=== PATIENT | female | born 1950 | race Caucasian/White ===

== ENCOUNTER → 2016-08-22 | Outpatient (REF) | payer OTHER | LOC: M LAB REF 16:18 | PROVIDERS: ATTEND Nurse Practitioner Family | DX: R50.9 Fever, unspecified (principal) ==

== ENCOUNTER → 2016-12-23 | Outpatient (CLI) | payer OTHER ==
[2016-12-23 10:50] LABS: BASO # 0.1 K/mm3 (0.0-0.2); EOS # 0.4 K/mm3 (0.0-0.50); EOS % 6.4 % (0.0-3.0); LARGE UNSTAINED CELL # 0.1 K/mm3 (0.0-0.4); LYMPH # 2.4 K/mm3 (1.5-4.5); LYMPH % 33.4 % (24.0-44.0); MEAN CORPUSCULAR HGB CONC 33.6 g/dl (32.0-36.5); MEAN CORPUSCULAR VOLUME 89.3 fl (80.0-96.0); MONO # 0.4 K/mm3 (0.0-0.8); MONO % 6.1 % (0.0-5.0); NEUTROPHILS # 3.5 K/mm3 (1.8-7.7); NEUTROPHILS % 51.1 % (36.0-66.0); PLATELET COUNT, AUTOMATED 268 k/mm3 (150-450); RED CELL DISTRIBUTION WIDTH 12.8 % (11.5-14.5); WHITE BLOOD COUNT 6.8 K/mm3 (4.0-10.0)
[2016-12-23 11:17] LABS: ANION GAP 5 MEQ/L (8-16); BLOOD UREA NITROGEN 20 MG/DL (7-18); CALCIUM LEVEL 8.3 MG/DL (8.8-10.2); CARBON DIOXIDE LEVEL 29 MEQ/L (21-32); CHLORIDE LEVEL 109 MEQ/L (98-107); CHOLESTEROL LEVEL 208 MG/DL (<200); CREATININE FOR GFR 0.83 MG/DL (0.55-1.02); GLOMERULAR FILTRATION RATE > 60.0 (>45); GLUCOSE, FASTING 101 MG/DL (80-110); SODIUM LEVEL 143 MEQ/L (136-145); TRIGLYCERIDES LEVEL 178 MG/DL (<150)
== END ==
LOC: M LAB 10:30
PROVIDERS: ATTEND Internal Medicine
DX: E03.9 Hypothyroidism, unspecified (principal)

== ENCOUNTER → 2017-06-16 | Outpatient (CLI) | payer OTHER ==
[2017-06-16 12:23] LABS: BASO # 0.1 10^3/uL (0.0-0.2); BASO % 1.5 % (0.0-1.0); EOS # 0.4 10^3/uL (0.0-0.50); EOS % 6.7 % (0.0-3.0); IMMATURE GRANULOCYTE % 0.3 % (0-0); LYMPH # 1.9 10^3/uL (1.5-4.5); LYMPH % 30.8 % (24.0-44.0); MEAN CORPUSCULAR HEMOGLOBIN 29.3 pg (27.0-33.0); MEAN CORPUSCULAR HGB CONC 32.4 g/dl (32.0-36.5); MEAN CORPUSCULAR VOLUME 90.2 fl (80.0-96.0); MONO # 0.6 10^3/uL (0.0-0.8); MONO % 9.9 % (0.0-5.0); NEUTROPHILS # 3.1 10^3/uL (1.8-7.7); NEUTROPHILS % 50.8 % (36.0-66.0); PLATELET COUNT, AUTOMATED 270 10^3/uL (150-450); WHITE BLOOD COUNT 6.1 10^3/uL (4.0-10.0)
[2017-06-16 12:36] LABS: MICROSCOPIC INDICATED? MAN YES (NO)
[2017-06-16 12:40] LABS: BACTERIA, URINE SMALL AMOUNT; HYALINE CAST, URINE NONE SEEN /lpf (0-1); MICROSCOPIC EXAM PERFORMED; RBC, URINE 0-1 /hpf (0-3); SQUAMOUS EPITHELIAL CELL URINE SMALL AMOUNT /hpf (SMALL AMT)
[2017-06-16 13:37] LABS: ALT/SGPT 26 U/L (12-78); ANION GAP 5 MEQ/L (8-16); BLOOD UREA NITROGEN 17 MG/DL (7-18); CALCIUM LEVEL 8.6 MG/DL (8.8-10.2); CARBON DIOXIDE LEVEL 30 MEQ/L (21-32); CHLORIDE LEVEL 108 MEQ/L (98-107); CHOLESTEROL LEVEL 215 MG/DL (<200); CREATININE FOR GFR 0.78 MG/DL (0.55-1.02); GLOMERULAR FILTRATION RATE > 60.0 (>45); GLUCOSE, FASTING 94 MG/DL (80-110); POTASSIUM SERUM 4.2 MEQ/L (3.5-5.1); SODIUM LEVEL 143 MEQ/L (136-145); TRIGLYCERIDES LEVEL 206 MG/DL (<150)
== END ==
LOC: M LAB 11:49
PROVIDERS: ATTEND Internal Medicine
DX: R73.09 Other abnormal glucose (principal); E78.00 Pure hypercholesterolemia, unspecified; E03.9 Hypothyroidism, unspecified

== ENCOUNTER → 2017-07-12 | Outpatient (REF) | payer OTHER | LOC: M LAB REF 15:11 | PROVIDERS: ATTEND Physician Assistant | DX: M54.5 Low back pain (principal) ==

== ENCOUNTER → 2017-12-02 | Outpatient (CLI) | payer OTHER ==
[2017-12-02 11:35] LABS: TOTAL 25(OH) VITAMIN D 26.5 NG/ML (30.0-100.0)
[2017-12-02 11:46] LABS: ANION GAP 4 MEQ/L (8-16); BLOOD UREA NITROGEN 17 MG/DL (7-18); CALCIUM LEVEL 8.6 MG/DL (8.8-10.2); CARBON DIOXIDE LEVEL 30 MEQ/L (21-32); CHLORIDE LEVEL 109 MEQ/L (98-107); CHOLESTEROL LEVEL 225 MG/DL (<200); CHOLESTEROL RISK RATIO 4.245 (<5); CREATININE FOR GFR 0.86 MG/DL (0.55-1.30); GLOMERULAR FILTRATION RATE > 60.0 (>45); GLUCOSE, FASTING 104 MG/DL (70-100); HDL CHOLESTEROL 53 MG/DL (>40); LDL CHOLESTEROL 136.6 MG/DL (<100); NON-HDL-C 172 MG/DL; POTASSIUM SERUM 4.4 MEQ/L (3.5-5.1); SODIUM LEVEL 143 MEQ/L (136-145); TRIGLYCERIDES LEVEL 177 MG/DL (<150)
== END ==
LOC: M LAB 10:23
DX: E03.9 Hypothyroidism, unspecified (principal); M81.0 Age-related osteoporosis without current pathological fracture; E78.00 Pure hypercholesterolemia, unspecified
CPT/HCPCS: 84443

== ENCOUNTER → 2018-03-31 | Outpatient (CLI) | payer OTHER ==
[2018-03-31 19:07] LABS: ESTIMATED AVERAGE GLUCOSE 131 MG/DL (60-110); HEMOGLOBIN A1c 6.2 %
== END ==
LOC: M LAB 11:01
DX: E11.9 Type 2 diabetes mellitus without complications (principal)
CPT/HCPCS: 83036

== ENCOUNTER → 2018-07-01 | Outpatient (CLI) | payer OTHER ==
[2018-07-01 12:25] LABS: APPEARANCE, URINE HAZY (CLEAR); BACTERIA, URINE AUTO NEGATIVE (NEGATIVE); BILIRUBIN, URINE AUTO NEGATIVE (NEGATIVE); BLOOD, URINE BLOOD NEGATIVE (NEGATIVE); COLOR, URINE YELLOW (YELLOW); GLUCOSE, URINE (UA) AUTO NEGATIVE (NEGATIVE); KETONE, URINE AUTO NEGATIVE (NEGATIVE); LEUKOCYTE ESTERASE, URINE AUTO NEGATIVE (NEGATIVE); MUCUS, URINE SMALL (NEGATIVE); NITRITE, URINE AUTO NEGATIVE (NEGATIVE); PROTEIN, URINE AUTO NEGATIVE (NEGATIVE); RBC, URINE AUTO 4 /HPF (0-3); SQUAMOUS EPITHELIAL CELL UR AU 0 /HPF (0-6); UROBILINOGEN, URINE AUTO 0.2 mg/dL (0.0-2.0); WBC, URINE AUTO 0 /HPF (0-3)
[2018-07-01 12:27] LABS: BASO # 0.1 10^3/uL (0.0-0.2); BASO % 1.3 % (0.0-1.0); EOS # 0.3 10^3/uL (0.0-0.50); EOS % 3.9 % (0.0-3.0); HEMATOCRIT 34.3 % (36.0-47.0); HEMOGLOBIN 10.5 g/dl (12.0-15.5); IMMATURE GRANULOCYTE % 0.3 % (0-3.0); LYMPH # 1.9 10^3/uL (1.5-4.5); LYMPH % 27.5 % (24.0-44.0); MEAN CORPUSCULAR HEMOGLOBIN 25.8 pg (27.0-33.0); MEAN CORPUSCULAR HGB CONC 30.6 g/dl (32.0-36.5); MEAN CORPUSCULAR VOLUME 84.3 fl (80.0-96.0); MONO # 0.6 10^3/uL (0.0-0.8); MONO % 8.1 % (0.0-5.0); NEUTROPHILS # 4.1 10^3/uL (1.8-7.7); NEUTROPHILS % 58.9 % (36.0-66.0); PLATELET COUNT, AUTOMATED 316 10^3/uL (150-450); RED BLOOD COUNT 4.07 10^6/uL (4.00-5.40); RED CELL DISTRIBUTION WIDTH 13.5 % (11.5-14.5); WHITE BLOOD COUNT 6.9 10^3/uL (4.0-10.0)
[2018-07-01 12:53] LABS: ALT/SGPT 26 U/L (12-78); ANION GAP 6 MEQ/L (8-16); BLOOD UREA NITROGEN 19 MG/DL (7-18); CALCIUM LEVEL 8.8 MG/DL (8.8-10.2); CARBON DIOXIDE LEVEL 29 MEQ/L (21-32); CHLORIDE LEVEL 106 MEQ/L (98-107); CHOLESTEROL LEVEL 219 MG/DL (<200); CREATININE FOR GFR 0.86 MG/DL (0.55-1.30); GLOMERULAR FILTRATION RATE > 60.0 (>45); GLUCOSE, FASTING 94 MG/DL (70-100); HDL CHOLESTEROL 50 MG/DL (>40); LDL CHOLESTEROL 139 MG/DL (<100); NON-HDL-C 169 MG/DL; POTASSIUM SERUM 4.3 MEQ/L (3.5-5.1); SODIUM LEVEL 141 MEQ/L (136-145); TRIGLYCERIDES LEVEL 151 MG/DL (<150)
[2018-07-01 12:55] LABS: TOTAL 25(OH) VITAMIN D 33.8 NG/ML (30.0-100.0)
[2018-07-01 13:15] LABS: ESTIMATED AVERAGE GLUCOSE 137 MG/DL (60-110); HEMOGLOBIN A1c 6.4 %
[2018-07-02 09:27] LABS: FERRITIN 5 NG/ML (8-252); IRON (FE) 45 UG/DL (50-170); TOTAL IRON BINDING CAPACITY 450 UG/DL (250-450)
[2018-07-02 11:20] LABS: VITAMIN B12 LEVEL 544 PG/ML
[2018-07-02 11:21] LABS: FOLATE 19.8 NG/ML
== END ==
LOC: M LAB 10:58
DX: Z00.00 Encounter for general adult medical examination without abnormal findings (principal); D64.9 Anemia, unspecified; R03.0 Elevated blood-pressure reading, without diagnosis of hypertension; E78.00 Pure hypercholesterolemia, unspecified; R73.09 Other abnormal glucose; E03.9 Hypothyroidism, unspecified; E55.9 Vitamin D deficiency, unspecified
CPT/HCPCS: 84460

== ENCOUNTER 2018-08-20 08:53 | Day surgery (SDC) | payer OTHER ==
[~2018-08-20] VITALS: Ht 162.6 cm; Wt 93.0 kg
[~2018-08-20 08:53] MED LIST: CALCTAB44 PO; FERR325T3 PO; HYDR-3713 PO; LEVO100T5 PO; MULT1TAB10 PO; NS 1,000 ML IV ONE; OMEP40CA2 PO; TYLE500T78 PO
[2018-08-20] MEDS ORDERED: PROPOFOL 200 MG/20 ML VIAL As Ordered ONE (10:09)
[2018-08-20] MEDS ORDERED: LIDOCAINE 2% INJ 100 MG/5 ML SDV (FOR ANES.) As Ordered ONE (10:09)
--- NOTE | 2018-08-20 10:10 | ROOR ---
Patient Name: Stacey Cherry Procedure Date: 08/20/2018 9:55 AM Date of : 1950 Age: 67 Room: [facility] Gender: Female Note Status: Finalized Procedure: Upper GI endoscopy Indications: Iron deficiency anemia Providers: Danielito Felix Jr, MD Referring MD: Mary SNYDER MD Requesting Provider: Medicines: Propofol per Anesthesia Complications: No immediate complications. Procedure: Pre-Anesthesia Assessment: - Prior to the procedure, a History and Physical was performed, and patient medications and allergies were reviewed. The patient is competent. The risks and benefits of the procedure and the sedation options and risks were discussed with the patient. All questions were answered and informed consent was obtained. Patient identification and proposed procedure were verified by the physician and the nurse in the pre-procedure area and in the procedure room. Mental Status Examination: alert and oriented. Airway Examination: normal oropharyngeal airway and neck mobility. Respiratory Examination: clear to auscultation. CV Examination: normal. ASA Grade Assessment: II - A patient with mild systemic disease. After reviewing the risks and benefits, the patient was deemed in satisfactory condition to undergo the procedure. The anesthesia plan was to use moderate sedation / analgesia (conscious sedation). Immediately prior to administration of medications, the patient was re-assessed for adequacy to receive sedatives. The heart rate, respiratory rate, oxygen saturations, blood pressure, adequacy of pulmonary ventilation, and response to care were monitored throughout the procedure. The physical status of the patient was re-assessed after the procedure. The Endoscope was introduced through the mouth, and advanced to the second part of duodenum. The upper GI endoscopy was accomplished without difficulty. The patient tolerated the procedure well. Findings: The upper third of the esophagus, middle third of the esophagus and lower third of the esophagus were normal. Scattered severe inflammation characterized by congestion (edema), erythema, friability and granularity was found in the cardia, in the gastric fundus and in the gastric body. Diffuse moderate inflammation characterized by congestion (edema), erythema, friability and granularity was found in the gastric antrum and in the prepyloric region of the stomach. Biopsies were taken with a cold forceps for histology. The duodenal bulb, first portion of the duodenum and second portion of the duodenum were normal. Impression: - Normal upper third of esophagus, middle third of esophagus and lower third of esophagus. - Bile gastritis. - Bile gastritis. Biopsied. - Normal duodenal bulb, first portion of the duodenum and second portion of the duodenum. Recommendation: - Discharge patient to home (ambulatory). - Return to my office in 2 weeks. Danielito Felix MD Danielito Felix Jr, MD 08/20/2018 10:10:28 AM This report has been signed electronically. Number of Addenda: 0 Note Initiated On: 08/20/2018 9:55 AM Estimated Blood Loss: Estimated blood loss: none.
--- NOTE | 2018-08-20 10:30 | ROOR ---
Patient Name: Stacey Cherry Procedure Date: 08/20/2018 9:56 AM Date of : 1950 Age: 67 Room: [facility] Gender: Female Note Status: Finalized Procedure: Colonoscopy Indications: Iron deficiency anemia Providers: Danielito Felix Jr, MD Referring MD: Mary SNYDER MD Requesting Provider: Medicines: Propofol per Anesthesia Complications: No immediate complications. Procedure: Pre-Anesthesia Assessment: - Prior to the procedure, a History and Physical was performed, and patient medications and allergies were reviewed. The patient is competent. The risks and benefits of the procedure and the sedation options and risks were discussed with the patient. All questions were answered and informed consent was obtained. Patient identification and proposed procedure were verified by the physician and the nurse in the pre-procedure area and in the procedure room. Mental Status Examination: alert and oriented. Airway Examination: normal oropharyngeal airway and neck mobility. Respiratory Examination: clear to auscultation. CV Examination: normal. ASA Grade Assessment: II - A patient with mild systemic disease. After reviewing the risks and benefits, the patient was deemed in satisfactory condition to undergo the procedure. The anesthesia plan was to use moderate sedation / analgesia (conscious sedation). Immediately prior to administration of medications, the patient was re-assessed for adequacy to receive sedatives. The heart rate, respiratory rate, oxygen saturations, blood pressure, adequacy of pulmonary ventilation, and response to care were monitored throughout the procedure. The physical status of the patient was re-assessed after the procedure. The Colonoscope was introduced through the anus and advanced to the cecum, identified by appendiceal orifice and ileocecal valve. The colonoscopy was performed without difficulty. The patient tolerated the procedure well. The quality of the bowel preparation was adequate. Findings: The rectum, recto-sigmoid colon, descending colon, transverse colon, cecum, appendiceal orifice and ileocecal valve appeared normal. A single small angioectasia without bleeding was found in the ascending colon. A few small-mouthed diverticula were found in the sigmoid colon. Impression: - The rectum, recto-sigmoid colon, descending colon, transverse colon, cecum, appendiceal orifice and ileocecal valve are normal. - A single non-bleeding colonic angioectasia. - Diverticulosis in the sigmoid colon. - No specimens collected. Recommendation: - Discharge patient to home (ambulatory). - Repeat colonoscopy in 10 years for screening purposes. Danielito Felix MD Danielito Felix Jr, MD 08/20/2018 10:30:09 AM This report has been signed electronically. Number of Addenda: 0 Note Initiated On: 08/20/2018 9:56 AM Estimated Blood Loss: Estimated blood loss: none.
[2018-08-20 10:50] VITALS: BP 124/76
== END 2018-08-20 10:54 | disposition home or self-care (01) ==
LOC: M OPP 08:53
PROVIDERS: ATTEND Surgery
DX: D50.9 Iron deficiency anemia, unspecified (principal); K55.20 Angiodysplasia of colon without hemorrhage; K57.30 Diverticulosis of large intestine without perforation or abscess without bleeding; K29.50 Unspecified chronic gastritis without bleeding; G47.30 Sleep apnea, unspecified; E03.9 Hypothyroidism, unspecified; R12 Heartburn; Z79.899 Other long term (current) drug therapy; Z88.1 Allergy status to other antibiotic agents; Z88.2 Allergy status to sulfonamides

== ENCOUNTER → 2018-09-01 | Outpatient (CLI) | payer OTHER ==
[~2018-09-01] MED LIST changes: -NS 1,000 ML IV ONE
[2018-09-01 16:33] LABS: BASO # 0.1 10^3/uL (0.0-0.2); BASO % 0.9 % (0.0-1.0); EOS # 0.1 10^3/uL (0.0-0.50); EOS % 1.7 % (0.0-3.0); HEMATOCRIT 36.3 % (36.0-47.0); HEMOGLOBIN 11.6 g/dl (12.0-15.5); LYMPH # 2.6 10^3/uL (1.5-4.5); LYMPH % 33.7 % (24.0-44.0); MEAN CORPUSCULAR HEMOGLOBIN 28.4 pg (27.0-33.0); MEAN CORPUSCULAR VOLUME 88.8 fl (80.0-96.0); MONO # 0.7 10^3/uL (0.0-0.8); NEUTROPHILS # 4.1 10^3/uL (1.8-7.7); NEUTROPHILS % 54.4 % (36.0-66.0); PLATELET COUNT, AUTOMATED 311 10^3/uL (150-450); RED BLOOD COUNT 4.09 10^6/uL (4.00-5.40); WHITE BLOOD COUNT 7.6 10^3/uL (4.0-10.0)
[2018-09-01 17:21] LABS: ERYTHROCYTE SEDIMENTATION RATE 19 mm/hr (0-30)
== END ==
LOC: M LAB 15:59
PROVIDERS: ATTEND Internal Medicine
DX: D50.9 Iron deficiency anemia, unspecified (principal)

== ENCOUNTER → 2018-11-01 | Outpatient (CLI) | payer OTHER ==
[~2018-11-01] MED LIST changes: +CALC1TAB82 PO; -CALCTAB44 PO
[2018-11-01 10:40] LABS: BASO # 0.1 10^3/uL (0.0-0.2); EOS # 0.1 10^3/uL (0.0-0.50); EOS % 1.9 % (0.0-3.0); HEMATOCRIT 38.9 % (36.0-47.0); HEMOGLOBIN 12.6 g/dl (12.0-15.5); LYMPH # 2.6 10^3/uL (1.5-4.5); LYMPH % 38.1 % (24.0-44.0); MEAN CORPUSCULAR HEMOGLOBIN 29.3 pg (27.0-33.0); MEAN CORPUSCULAR HGB CONC 32.4 g/dl (32.0-36.5); MEAN CORPUSCULAR VOLUME 90.5 fl (80.0-96.0); MONO # 0.6 10^3/uL (0.0-0.8); MONO % 9.3 % (0.0-5.0); NEUTROPHILS # 3.4 10^3/uL (1.8-7.7); NEUTROPHILS % 49.4 % (36.0-66.0); PLATELET COUNT, AUTOMATED 284 10^3/uL (150-450); WHITE BLOOD COUNT 6.9 10^3/uL (4.0-10.0)
[2018-11-01 10:51] LABS: HEMOGLOBIN A1c 6.2 %
[2018-11-01 11:09] LABS: BLOOD UREA NITROGEN 18 MG/DL (7-18); CALCIUM LEVEL 8.3 MG/DL (8.8-10.2); CARBON DIOXIDE LEVEL 27 MEQ/L (21-32); CHLORIDE LEVEL 107 MEQ/L (98-107); CREATININE FOR GFR 0.94 MG/DL (0.55-1.30); GLOMERULAR FILTRATION RATE > 60.0 (>45); GLUCOSE, FASTING 97 MG/DL (70-100); POTASSIUM SERUM 4.1 MEQ/L (3.5-5.1); SODIUM LEVEL 141 MEQ/L (136-145)
== END ==
LOC: M LAB 10:08
PROVIDERS: ATTEND Internal Medicine
DX: D50.9 Iron deficiency anemia, unspecified (principal); E03.9 Hypothyroidism, unspecified

== ENCOUNTER → 2019-02-07 | Outpatient (CLI) | payer OTHER ==
[~2019-02-07] MED LIST changes: -OMEP40CA2 PO; +OMEP40CA97 PO
[2019-02-07 10:35] LABS: BASO # 0.1 10^3/uL (0.0-0.2); BASO % 1.4 % (0.0-1.0); EOS # 0.2 10^3/uL (0.0-0.50); HEMATOCRIT 38.5 % (36.0-47.0); HEMOGLOBIN 12.8 g/dl (12.0-15.5); LYMPH # 2.4 10^3/uL (1.5-4.5); LYMPH % 36.8 % (24.0-44.0); MEAN CORPUSCULAR HEMOGLOBIN 31.8 pg (27.0-33.0); MEAN CORPUSCULAR HGB CONC 33.2 g/dl (32.0-36.5); MEAN CORPUSCULAR VOLUME 95.5 fl (80.0-96.0); MONO # 0.6 10^3/uL (0.0-0.8); NEUTROPHILS # 3.2 10^3/uL (1.8-7.7); NEUTROPHILS % 49.5 % (36.0-66.0); PLATELET COUNT, AUTOMATED 263 10^3/uL (150-450); RED BLOOD COUNT 4.03 10^6/uL (4.00-5.40); WHITE BLOOD COUNT 6.4 10^3/uL (4.0-10.0)
[2019-02-07 10:59] LABS: BLOOD UREA NITROGEN 16 MG/DL (7-18); CALCIUM LEVEL 8.8 MG/DL (8.8-10.2); CARBON DIOXIDE LEVEL 29 MEQ/L (21-32); CHLORIDE LEVEL 111 MEQ/L (98-107); CHOLESTEROL LEVEL 216 MG/DL (<200); CHOLESTEROL RISK RATIO 3.857 (<5); CREATININE FOR GFR 0.91 MG/DL (0.55-1.30); GLOMERULAR FILTRATION RATE > 60.0 (>45); GLUCOSE, FASTING 100 MG/DL (70-100); HDL CHOLESTEROL 56 MG/DL (>40); LDL CHOLESTEROL 135 MG/DL (<100); NON-HDL-C 160 MG/DL; POTASSIUM SERUM 4.2 MEQ/L (3.5-5.1); SODIUM LEVEL 143 MEQ/L (136-145); TRIGLYCERIDES LEVEL 127 MG/DL (<150)
[2019-02-07 11:17] LABS: HEMOGLOBIN A1c 6.4 %
== END ==
LOC: M LAB 09:36
PROVIDERS: ATTEND Internal Medicine
DX: R03.0 Elevated blood-pressure reading, without diagnosis of hypertension (principal); D50.9 Iron deficiency anemia, unspecified; E03.9 Hypothyroidism, unspecified; R73.09 Other abnormal glucose; E78.00 Pure hypercholesterolemia, unspecified

== ENCOUNTER → 2019-08-02 | Outpatient (CLI) | payer OTHER ==
[2019-08-02 15:20] LABS: BASO # 0.1 10^3/uL (0.0-0.2); BASO % 1.1 % (0.0-1.0); EOS # 0.2 10^3/uL (0.0-0.5); EOS % 2.6 % (0.0-3.0); HEMATOCRIT 38.1 % (36.0-47.0); HEMOGLOBIN 12.7 g/dl (12.0-15.5); LYMPH # 2.5 10^3/uL (1.5-5.0); LYMPH % 33.2 % (24.0-44.0); MEAN CORPUSCULAR HEMOGLOBIN 31.6 pg (27.0-33.0); MEAN CORPUSCULAR HGB CONC 33.3 g/dl (32.0-36.5); MEAN CORPUSCULAR VOLUME 94.8 fl (80.0-96.0); MONO # 0.7 10^3/uL (0.0-0.8); MONO % 9.1 % (0.0-5.0); NEUTROPHILS # 4.1 10^3/uL (1.5-8.5); NEUTROPHILS % 53.7 % (36.0-66.0); PLATELET COUNT, AUTOMATED 274 10^3/uL (150-450); RED BLOOD COUNT 4.02 10^6/uL (4.00-5.40); WHITE BLOOD COUNT 7.6 10^3/uL (4.0-10.0)
[2019-08-02 15:39] LABS: HEMOGLOBIN A1c 6.2 %
[2019-08-02 15:57] LABS: ALBUMIN 3.5 GM/DL (3.2-5.2); ALT/SGPT 46 U/L (12-78); BILIRUBIN,TOTAL 0.4 MG/DL (0.2-1.0); BLOOD UREA NITROGEN 19 MG/DL (7-18); CALCIUM LEVEL 8.9 MG/DL (8.8-10.2); CARBON DIOXIDE LEVEL 27 MEQ/L (21-32); CHLORIDE LEVEL 107 MEQ/L (98-107); CHOLESTEROL LEVEL 238 MG/DL (<200); CHOLESTEROL RISK RATIO 5.534 (<5); CREATININE FOR GFR 0.83 MG/DL (0.55-1.30); GLOMERULAR FILTRATION RATE > 60.0 (>45); GLUCOSE, FASTING 99 MG/DL (70-100); HDL CHOLESTEROL 43 MG/DL (>40); NON-HDL-C 195 MG/DL; POTASSIUM SERUM 4.2 MEQ/L (3.5-5.1); SODIUM LEVEL 142 MEQ/L (136-145); TOTAL PROTEIN 7.2 GM/DL (6.4-8.2); TRIGLYCERIDES LEVEL 428 MG/DL (<150)
== END ==
LOC: M LAB 14:40
PROVIDERS: ATTEND Internal Medicine
DX: D50.9 Iron deficiency anemia, unspecified (principal)

== ENCOUNTER → 2019-08-11 | Outpatient (REF) | payer OTHER | LOC: M LAB REF 15:27 | PROVIDERS: ATTEND Radiology Diagnostic Radiology | DX: N63.0 Unspecified lump in unspecified breast (principal) ==

== ENCOUNTER → 2019-08-25 | Outpatient (CLI) | payer OTHER | LOC: M PLALAB 10:33 | PROVIDERS: ATTEND Surgery | DX: Z13.79 Encounter for other screening for genetic and chromosomal anomalies (principal) ==

== ENCOUNTER → 2019-09-03 | Outpatient (CLI) | payer OTHER ==
[~2019-09-03] MED LIST changes: +ACET-683 PO; +AZEL0.055 NARES; +HYDR-3363 PO; +UREA39CR EX; +[UNRECOGNIZED DRUG - OTHER] EXT
--- NOTE | 2019-09-03 12:35 | REP ---
LEFT AXILLARY ULTRASOUND: Real-time sonographic evaluation of the left axillary region performed for palpable suspected lymphadenopathy. In the left axilla, there are two lymph nodes identified with prominent fatty herman. Morphologically, these have a typical appearance of lymph nodes. These measure 3.1 x 1.2 x 1.9 cm and 1.9 x 0.8 x 1.4 cm. IMPRESSION: Two morphologically normal appearing lymph nodes present are mildly enlarged as discussed above. Neoplastic involvement cannot be excluded.
== END ==
LOC: M WHC 10:42
PROVIDERS: ATTEND Surgery
DX: C50.912 Malignant neoplasm of unspecified site of left female breast (principal)

== ENCOUNTER → 2019-09-03 | Outpatient (REF) | payer OTHER ==
[~2019-09-03] MED LIST changes: -ACET-683 PO; -AZEL0.055 NARES; -HYDR-3363 PO; -UREA39CR EX; -[UNRECOGNIZED DRUG - OTHER] EXT
[2019-09-03 13:45] LABS: HEMATOCRIT 41.3 % (36.0-47.0); HEMOGLOBIN 12.9 g/dl (12.0-15.5); MEAN CORPUSCULAR HEMOGLOBIN 30.1 pg (27.0-33.0); MEAN CORPUSCULAR HGB CONC 31.2 g/dl (32.0-36.5); MEAN CORPUSCULAR VOLUME 96.5 fl (80.0-96.0); PLATELET COUNT, AUTOMATED 290 10^3/uL (150-450); RED BLOOD COUNT 4.28 10^6/uL (4.00-5.40); WHITE BLOOD COUNT 7.4 10^3/uL (4.0-10.0)
[2019-09-03 14:05] LABS: ALBUMIN 3.9 GM/DL (3.2-5.2); ALT/SGPT 56 U/L (12-78); BILIRUBIN,TOTAL 0.6 MG/DL (0.2-1.0); BLOOD UREA NITROGEN 17 MG/DL (7-18); CALCIUM LEVEL 9.1 MG/DL (8.8-10.2); CARBON DIOXIDE LEVEL 30 MEQ/L (21-32); CHLORIDE LEVEL 106 MEQ/L (98-107); CREATININE FOR GFR 0.87 MG/DL (0.55-1.30); GLOMERULAR FILTRATION RATE > 60.0 (>45); GLUCOSE, FASTING 77 MG/DL (70-100); POTASSIUM SERUM 4.2 MEQ/L (3.5-5.1); SODIUM LEVEL 141 MEQ/L (136-145); TOTAL PROTEIN 7.7 GM/DL (6.4-8.2)
== END ==
LOC: M PLALAB 11:13
PROVIDERS: ATTEND Surgery
DX: C50.912 Malignant neoplasm of unspecified site of left female breast (principal); Z17.0 Estrogen receptor positive status [ER+]; R59.0 Localized enlarged lymph nodes

== ENCOUNTER → 2019-09-17 | Outpatient (CLI) | payer OTHER ==
[~2019-09-17] MED LIST changes: +ACET-683 PO; +AZEL0.055 NARES; +HYDR-3363 PO; +UREA39CR EX; +[UNRECOGNIZED DRUG - OTHER] EXT
--- NOTE | 2019-09-17 15:19 | REP ---
SECOND LOOK TARGETED LEFT BREAST SONOGRAPHY: HISTORY: Additional suspicious nodules seen on MRI study of the breast done at [facility]. Status post ultrasound-guided needle biopsy left breast August 11, 2019. SONOGRAPHIC FINDINGS: Sonography is performed in my presence. The biopsy-proven malignant nodule is seen with a marker clip in its periphery. This measures 15 x 7 x 8 mm and is located at the upper border of the areola at approximately 12-o'clock position. There are multiple dilated ducts deep to the nipple with some hypoechoic echoes within these ducts. At 6 to 7 -o'clock position, at the inferior edge of the areolar border, there are two 3 mm hypoechoic lesions which appears cystic. These are 2 cm apart. At 5-o'clock position, 4 cm from the nipple there is a 10 x 5 x 3 mm elongate hypoechoic nodule with an irregular shape. This may conceivably correspond to the more posterior lesion seen near the biopsy proven malignancy on breast MRI study. No lesion is seen closer to the biopsy-proven clip lesion. IMPRESSION: Focused left breast sonographic findings include a hypoechoic elongate lesion at 5-o'clock position with mixed echogenicity. The biopsy proven malignancy is seen at 12-o'clock position. There are two small apparent cysts and their dilated ducts in the retroareolar region. Electronically Signed by Jeffery Harris MD 09/17/2019 05:08 P
== END ==
LOC: M RAD 12:45
PROVIDERS: ATTEND Surgery
DX: R92.8 Other abnormal and inconclusive findings on diagnostic imaging of breast (principal)

== ENCOUNTER → 2019-09-29 | Outpatient (CLI) | payer OTHER ==
[~2019-09-29] MED LIST changes: +VICO10TA11 PO
[2019-09-29 16:14] VITALS: BP 16/82
--- NOTE | 2019-09-29 18:11 | REP ---
Digital diagnostic unilateral left breast mammography with CAD: Two views. History: Marker clip placement views. The patient is status post ultrasound-guided needle biopsy procedure. Recent diagnosis upper outer quadrant left breast malignancy. Findings: There is a marker clip in the upper outer quadrant adjacent to some punctate calcifications, unchanged from the 2014 prior mammogram. A ring-like biopsy marker clip is noted centrally in the left breast at approximately 12 o'clock position anteriorly. There is a third small needle biopsy marker clip inferiorly and slightly laterally in the left breast at approximately the 5 o'clock position marking an ultrasound guided needle biopsy site. These latter two clips are new compared to the 2014 prior study. Impression: Total of three marker clips visible in the left breast, 12 o'clock and 5 o'clock recently placed.
--- NOTE | 2019-09-29 18:13 | REP ---
Focused left breast sonography: History: Infiltrating ductal carcinoma at 12 o'clock, recently diagnosed. Lesion identified at 5 o'clock by a recent ultrasound, for ultrasound-guided biopsy. Findings: Preliminary scanning demonstrates a 9 x 3 mm oval-shaped hypoechoic lesion corresponding with the recent sonographic findings. Sonographic guidance is provided to Dr. Tong who performed ultrasound-guided needle biopsy procedure and clip marker placement.
--- NOTE | 2019-09-29 21:16 | ROOPDOC ---
[facility] Report Of Operation Report of Operation DATE OF PROCEDURE: 09/29/19 PREPROCEDURE DIAGNOSES: left breast cancer and left breast mass POSTPROCEDURE DIAGNOSES: left breast cancer and left breast mass PROCEDURE: ultrasound guided biopsy of left breast mass SURGEON: Mark Hurt BABY NURSE: ANESTHESIA: local ESTIMATED BLOOD LOSS: Approximately 1 mL. COMPLICATIONS: none REMARKS: clip is in expected location on mammogram DESCRIPTION OF PROCEDURE: Lidocaine 1% LOT [id number] Expiration 08/2020 Sodium Bicarbonate 8.4% LOT [id number] Expiration 09/2020 Hydromark clip LOT [id number] Expiration 05/2022 SHAPE 4 Bx device: BARD [id number] x10 cm LOT HUEN 1024 Expiration 06/2022 Informed consent was obtained. The most common risk and possible complications including bleeding, hematoma, bruising, infection, injury to surrounding structures were explained to the patient and she expressed understanding. Patient was taken to the procedure room and placed on the bed in the supine position with the left upper extremity placed along the body and patient was rotated to the right. Appropriate time out was done stating patients name, date of , and the procedure to be performed. The left breast was prepped and draped in the usual fashion. The ultrasound was used to confirm the location of the lesion in the left breast at 5:00 4 centimeters from the nipple. Plain Lidocaine 1% and 8.4% sodium bicarbonate 10:1 mix was used to numb the skin, the biopsy site and tissues along the anticipated biopsy tract. Small skin incision was made with blade number 11. BARD Marquee 14G cannula with introducer ([id number]) was inserted through the incision and advanced under the ultrasound guidance to position immediately adjacent to the lesion. Next, the introducer was removed and BARD Marquee 14G biopsy device was places in the cannula. Pre-biopsy imaging, and post-biopsy imaging were captured. Five good core biopsies were taken at various levels of the lesion. Specimen was placed in formaldehyde, labeled with appropriate biopsy site and patients name, and sent to pathology for evaluation. Next, the biopsy device was withdrawn and a clip introducer was inserted into the biopsy site via the cannula. The Hydromark clip was deployed under direct vision. Post-clip placement image was captured. Manual pressure over the biopsy cavity and tract was held after the clip introducer was withdrawn. No bleeding was noted upon removal of the pressure. Post-biopsy mammogram of the left breast was obtained and showed clip in expected position. Postprocedural dressing was placed. Patient tolerated procedure well. Discharge instructions were discussed with the patient and she expressed understanding. MARK HURT DO Sep 29, 2019 21:16
== END ==
LOC: M WHCPRO 15:03
PROVIDERS: ATTEND Surgery
DX: C50.912 Malignant neoplasm of unspecified site of left female breast (principal)

== ENCOUNTER → 2019-10-21 | Outpatient (CLI) | payer OTHER ==
[~2019-10-21] MED LIST changes: +LIDOCAINE 1% MDV 20ML VIAL As Ordered ONE; +PROHANCE 279.3MG/ML 15ML VIAL (A9576) As Ordered ONE; +PROHANCE 279.3MG/ML 5ML VIAL (A9576) As Ordered ONE
[2019-10-21 08:03] LABS: BLOOD UREA NITROGEN 15 MG/DL (7-18); CALCIUM LEVEL 9.1 MG/DL (8.8-10.2); CARBON DIOXIDE LEVEL 27 MEQ/L (21-32); CHLORIDE LEVEL 108 MEQ/L (98-107); CREATININE FOR GFR 0.82 MG/DL (0.55-1.30); GLOMERULAR FILTRATION RATE > 60.0 (>45); GLUCOSE, FASTING 105 MG/DL (70-100); POTASSIUM SERUM 3.9 MEQ/L (3.5-5.1); SODIUM LEVEL 142 MEQ/L (136-145)
[2019-10-21 10:55] VITALS: BP 119/78
--- NOTE | 2019-10-21 11:22 | REP ---
DIGITAL DIAGNOSTIC UNILATERAL LEFT BREAST MAMMOGRAPHY WITH CAD: TWO VIEWS: HISTORY: Status post MR guided needle biopsy. Comparison is made with a recent mammography and breast ultrasound as well as comparison MRI study from September 08, 2019. Comparison mammography includes the initial post ultrasound-guided needle biopsy study of the left breast from August 11, 2019 when infiltrating ductal carcinoma was diagnosed. On September 29, 2019 postbiopsy images were obtained after an ultrasound guided needle biopsy produced the histologic diagnosis of atypical ductal hyperplasia. There was a remote prior benign needle biopsy in the upper outer quadrant of the left breast and a previously placed marker clip . MAMMOGRAPHIC FINDINGS: Today's CC and true ML views demonstrate a total of four separate needle biopsy marker clips. Today's MR guided needle biopsy marker clip is seen in approximately the 6 o'clock position middle third of the breast. There is no evidence of hematoma. Films are labeled for reference purposes. IMPRESSION: Marker clip is seen in the good position retroareolar approximately 6 o'clock. The three previously placed marker clips are also seen. There is no evidence of hematoma. Electronically Signed by Jeffery Harris MD 10/21/2019 12:20 P
--- NOTE | 2019-10-21 12:47 | REP ---
MRI GUIDED LEFT BREAST BIOPSY The procedure was performed under the personal supervision of Dr. Harris. The patient has a history of A 5 mm focus of enhancement in the 6 o'clock position of the left breast seen on a previous MRI from [facility] performed on 09/08/2019. The risks and benefits of the procedure were explained to the patient and informed consent was obtained. The left breast nodule was localized using MRI guidance. The skin was prepped and draped in a sterile fashion. 1% lidocaine was used as a local anesthetic. An 8-gauge suction assisted Mammotome needle was inserted and seven core biopsy samples were obtained. A marker clip was placed at the biopsy site. The patient tolerated the procedure well and there were no immediate complications. After the appropriate amount of monitored convalescence the patient was discharged from the department. Electronically Signed by SAUL Hood 10/21/2019 11:58 A Electronically Signed by Jeffery Harris MD 10/21/2019 12:38 P
== END ==
LOC: M IRPRO 07:20
PROVIDERS: ATTEND Surgery
DX: N60.92 Unspecified benign mammary dysplasia of left breast (principal); C50.912 Malignant neoplasm of unspecified site of left female breast; R92.8 Other abnormal and inconclusive findings on diagnostic imaging of breast
CPT/HCPCS: 36415; 77021; 80048; 88305; 88341; 88342; A9576

== ENCOUNTER → 2019-11-01 | Outpatient (CLI) | payer OTHER ==
[~2019-11-01] MED LIST changes: -LIDOCAINE 1% MDV 20ML VIAL As Ordered ONE; -PROHANCE 279.3MG/ML 15ML VIAL (A9576) As Ordered ONE; -PROHANCE 279.3MG/ML 5ML VIAL (A9576) As Ordered ONE
--- NOTE | 2019-11-01 16:37 | REPPI ---
CHEST, TWO VIEWS: There is no evidence of acute infiltrate. No pleural effusion is seen. The heart is normal in size. The mediastinal silhouette is unremarkable. The visualized osseous structures are intact. IMPRESSION: No acute pulmonary disease. Electronically Signed by Faisal Geronimo MD 11/01/2019 04:38 P
== END ==
LOC: M PLAIMG 15:01
PROVIDERS: ATTEND Surgery
DX: Z01.818 Encounter for other preprocedural examination (principal)

== ENCOUNTER 2019-11-17 08:50 | Observation (INO) | payer OTHER ==
--- NOTE | 2019-11-04 08:48 | CR ---
DATE OF CONSULTATION: 10/25/2019 PREOPERATIVE CONSULTATION: This is for Dr. Tong for a left breast lumpectomy scheduled 11/02/2019. Dear Dr. Tong: Thank you for asking me to see Ms. Stacey Cherry in consultation prior to her left breast lumpectomy. As you know, Ms. Cherry is a 68-year-old female with recent diagnosis of infiltrating ductal carcinoma of the left breast, triple positive, grade 2, who presents prior to left breast lumpectomy. Ms. Cherry reports left breast is swollen. She had another recent biopsy last week, results unknown. Sees Dr. Tong 10/27/2019, to discuss results. Patient reports she is presently off work from [place]. Denies any fevers or chills, chest pain, or shortness of breath. Continues to be quite active and, in fact, reports she did enough yard work that she has caused herself some neck pain. She is using sparingly Tylenol, Vicodin, heat, range of motion. She is using some Benadryl to help herself sleep at night. Patient admits to some anxiety. Eager to move forward with the lumpectomy. Patient had dermatitis in July. Reports resolution of her symptoms. Patient has history of iron deficiency anemia (JULIET). She has been weaned off iron. She does continue on famotidine with good control of dyspepsia. Patient has hypothyroidism and is compliant with her levothyroxine. Patient battles obesity as well as hyperlipidemia, hyperglycemia, borderline blood pressures. Hoping to get back on track with diet and exercise. REVIEW OF SYSTEMS: Otherwise, negative. PAST MEDICAL HISTORY: 1. Allergic rhinitis, history of immunotherapy. 2. Status post tonsillectomy. 3. Right foot surgery, bone spur in 1973. 4. Right wrist arthroscopy in 2004. 5. Mononucleosis in 1975. 6. Hepatitis in 1974. 7. Pneumonia in 1975. 8. Impetigo 1985. 9. Bunionectomy December 2003. 10. Transaminitis in 2005 with negative hepatitis panel. 11. Hypothyroidism. 12. Right carpal tunnel repair 2007. 13. Left plantar fasciitis, tendonitis. 14. Osteoporosis, treated with bisphosphonate January of 2008 to December of 2012. 15. Menopausal 2007. 16. 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 17. Left bunionectomy December 2012. 18. Family history of breast carcinoma (CA). 19. Gastritis status post esophagogastroduodenoscopy (EGD) 08/20/2018 with bile gastritis. No Helicobacter (H) pylori. 20. Hard of hearing, hearing aids 2016. 21. Breast CA 2019, infiltrating ductal, triple positive. 22. JULIET 2018 with EGD/colonoscopy showing bile gastritis, diverticulosis, single non-bleeding colonic angioectasia. MEDICATIONS: - acyclovir as needed cold sores - Astepro as needed for allergies - calcium citrate daily - famotidine 20 mg nightly - hydrocodone/acetaminophen 5/325 as needed - levothyroxine 100 mcg daily - omeprazole 40 mg daily - saline nasal spray as needed - Tylenol as needed - vitamin D3, 1000 international units daily DRUG ALLERGIES: SULFA. SOCIAL HISTORY: Single. Never smoked. No alcohol. Works on [employer] FAMILY HISTORY: Father hyperthyroidism, kidney disease. Mother Alzheimer disease, pacemaker. Sister breast cancer, cirrhosis, of lung cancer. Grandparents heart disease. PHYSICAL EXAMINATION: Overweight female in no acute distress. VITAL SIGNS: Weight 205, blood pressure 114/66, heart rate 97, height 65, oxygen saturation 97%. HEENT EXAMINATION: Head is normocephalic. Neck is supple. Pupils equal, reactive to light. Extraocular movements are intact. No thyromegaly, jugular venous distention (JVD), carotid bruits, cervical lymphadenopathy. RESPIRATORY: Clear to auscultation. Resonant to percussion. BREAST EXAMINATION: Mild diffuse fibroglandular breast disease, except left upper outer quadrant bruising, some erythema at the superior edge of the Steri-Strips, minimal tenderness, induration. CARDIOVASCULAR: Regular rate and rhythm. No murmur, rub, gallop. ABDOMEN: Obese, soft, nontender. No hepatosplenomegaly. EXTREMITIES: No cyanosis, clubbing, or edema. She does have some arthritic changes in her fingers. NEUROLOGIC: Alert and oriented. Cranial nerves II-XII intact. LABORATORY DATA: From 08/02/2019, patient had a normal TSH, CBC, and A1c of 6.2, normal med profile, liver panel. Lipids, the total cholesterol was 238 with triglycerides of 428, normal HDL at 43. Blood work 10/21/2019 [facility] ([facility] Normal med profile. EKG 10/25/2019: Normal sinus rhythm, rate of 97, axis of 47. Normal HI, QRS, QTc interval. Normal R wave progression. No atrial or ventricular hypertrophy. No pathologic Q waves. No significant change compared to an EKG from 12/25/2017. IMPRESSION: Ms. Stacey Cherry, 68-year-old female with cardiovascular risk factors positive for prehypertension, prediabetes, hyperlipidemia, age, who has no signs or symptoms indicative of cardiovascular ischemia, is felt to be optimized and at low risk for cardiovascular complications from the proposed surgical intervention, which can be further minimized by the followin. Gastritis. Take famotidine and omeprazole as usual evening prior to surgery. 2. Osteoarthritis. Use Tylenol perioperatively as needed. Resume Vicodin as needed with the approval of surgeon. 3. Breast carcinoma. Per Dr. Tong. 4. Allergies. Continue Benadryl nightly as needed. Use Astepro as well and saline spray. 5. Hyperlipidemia. Get back on track, diet, exercise after surgery. 6. Hyperglycemia. Encourage dietary advice after surgery. 7. Hypothyroid. Take levothyroxine with sip of water morning of surgery. Thank you very much for this consultation. Please call with questions or concerns.
[2019-11-17] VITALS (7 sets, daily range): BP systolic 126–143; BP diastolic 72–85; O2SAT 99
[~2019-11-17] VITALS: Ht 162.6 cm; Wt 92.5 kg
[~2019-11-17 08:50] MED LIST changes: +FAMO20TA PO; +LIDOCAINE 1% MDV 20ML VIAL SQ PRN; +LR 1,000 ML IV ONE; +ceFAZolin SOD 2 GM in IV 1 EA IV ONE
[2019-11-17] MEDS ORDERED: LIDO2.5C15 (09:35)
[2019-11-17] MEDS ORDERED: MIDAZOLAM INJ 2MG/2ML VIAL (J2250 PER 1MG) As Ordered ONE (10:38)
[2019-11-17] MEDS ORDERED: dexameTHASONE 4 MG/ML 1ML VIAL (J1100 PER 1MG) As Ordered ONE ×2 (10:39→12:18)
[2019-11-17] MEDS ORDERED: SUGAMMADEX SODIUM 500 MG/5 ML VIAL (BRIDION) As Ordered ONE (10:39)
[2019-11-17] MEDS ORDERED: LIDOCAINE 2% 100MG/5ML SDV (FOR ANES.) As Ordered ONE (10:39)
[2019-11-17] MEDS ORDERED: propofoL 200 MG/20 ML VIAL As Ordered ONE (10:39)
[2019-11-17] MEDS ORDERED: ROCURONIUM BROMIDE 50 MG/5 ML VIAL As Ordered ONE (10:39)
[2019-11-17] MEDS ORDERED: ONDANSETRON 4MG/2ML VIAL As Ordered ONE (10:39)
[2019-11-17] MEDS ORDERED: fentaNYL 250 MCG/5 ML INJECTION (J3010) As Ordered ONE (10:39)
[2019-11-17] MEDS ORDERED: HEPARIN SOD (PORCINE) 5000UNITS/ML VIAL (J1644 PER 1000UNITS) SQ ONE (11:15)
[2019-11-17] MEDS ORDERED: SCOPOLAMINE 1MG TRANSDERMAL PATCH As Ordered ONE (12:17)
[2019-11-17] MEDS ORDERED: BUPIVACAINE LIPOSOME/PF 1.3% 20ML VIAL (13.3MG/ML)(EXPAREL)(C9290 PER1MG) As Ordered ONE (12:20)
[2019-11-17] MEDS ORDERED: GENTAMICIN SULF 80MG/2ML VIAL As Ordered ONE (12:20)
[2019-11-17] MEDS ORDERED: SCOPOLAMINE 1MG TRANSDERMAL PATCH TOP ONE (12:30)
[2019-11-17] MEDS ORDERED: METOCLOPRAMIDE INJ 10MG/2ML VIAL (J2765 PER 1) As Ordered ONE (12:50)
[2019-11-17] MEDS ORDERED: ePHEDrine SULFATE 25 MG/5 ML(5MG/ML) SYRINGE As Ordered ONE (12:55)
[2019-11-17] MEDS ORDERED: PHENYLephrine HCL 500 MCG/5 ML (100MCG/ML) SYRINGE (J2370) As Ordered ONE ×2 (12:55→14:54)
[2019-11-17] MEDS ORDERED: ACETAMINOPHEN 1000MG 100ML IV BTL (OFIRMEV) (J0131 PER 10MG) As Ordered ONE (13:09)
[2019-11-17] MEDS ORDERED: propofoL 500 MG/50 ML VIAL As Ordered ONE (13:39)
--- NOTE | 2019-11-17 16:17 | POST-OPPD ---
Postoperative Procedure Note Date Of Procedure: Nov 17, 2019 PREOPERATIVE DIAGNOSIS: Left breast cancer, acquired absence of left breast and nipple POSTOPERATIVE DIAGNOSIS: same FINDINGS: S/p left mastectomy. [employer] 550cc, filled to 300cc NS PROCEDURE: Immediate post mastectomy Left breast reconstruction using tissue armor reconnaissance vehicle crewman. SURGEON: Dr Gannon SKEIN SPOOLER: Dr Krueger ANESTHESIA: General SPECIMENS: none [id number] ESTIMATED BLOOD LOSS: 50cc total for the whole procedure REPLACED: none DRAINS: 2 x 19 Fr Kavon drains COMPLICATIONS: none POSTOPERATIVE CONDITION: stable ESTHER GANNON DO Nov 17, 2019 16:17
--- NOTE | 2019-11-17 16:27 | REP ---
LEFT BREAST LYMPHOSCINTIGRAPHY The procedure was performed under the direct supervision of Dr. Geronimo. The images were reviewed with Dr. Geronimo. Using topical anesthetic and sterile technique a 0.998 millicuries of technetium 99 filtered sulfur colloid was injected subdermally in eight fractionated periareolar injections. Images obtained 1 hour after injection show a dominant focus in the left axilla. Impression: Left breast lymphoscintigraphy. There is a dominant focus of uptake in the left axilla. Electronically Signed by SAUL Hood 11/17/2019 01:41 P Electronically Signed by Faisal Geronimo MD 11/17/2019 04:19 P
[2019-11-17] MEDS ORDERED: LR 1,000 ML IV SCH ×2 (16:30→16:53)
[2019-11-17] MEDS ORDERED: fentaNYL 100 MCG/2 ML INJECTION (J3010) IV PRN (16:30)
[2019-11-17] MEDS ORDERED: oxyCODONE 5MG TAB PO PRN (16:30)
[2019-11-17] MEDS ORDERED: ONDANSETRON 4MG/2ML VIAL IV PRN ×2 (16:30→17:00)
[2019-11-17] MEDS ORDERED: ACETAMINOPHEN TAB 650MG DOSE (2X325MG) PO PRN (17:00)
[2019-11-17] MEDS ORDERED: PERCOCET 5MG/325MG TAB PO PRN (17:00)
[2019-11-17] MEDS ORDERED: FAMOTIDINE 20 MG TAB PO ONE (17:00)
[2019-11-17 17:52] LABS: HIV SCREEN CENTAUR SOURCE NEGATIVE (NEGATIVE)
[2019-11-17] MEDS: KETOROLAC TROMETHAMINE 10 MG TAB PO PRN (19:46)
[2019-11-17] MEDS: ceFAZolin SOD 2 GM in IV 1 EA IV SCH (19:46)
--- NOTE | 2019-11-18 00:01 | RO ---
DATE OF PROCEDURE: 11/17/2019 PREOPERATIVE DIAGNOSES: Left breast cancer, acquired absence of left breast and nipple. POSTOPERATIVE DIAGNOSES: Left breast cancer, acquired absence of left breast and nipple. PROCEDURE: Immediate postmastectomy left breast reconstruction using tissue sales agent pest control service. ATTENDING SURGEON: Dr. Blackmon CERTIFIED OPTICIAN: Dr. Tong ANESTHESIA: General. FINDINGS: Status post left mastectomy. SPECIMENS: Were sent on the first part of the procedure. BLOOD LOSS: 50 mL total. No replacement. Two #19-Yi Kavon drains. There was no complications. No transfusions. Patient transferred to recovery room in stable condition. DESCRIPTION OF PROCEDURE: This is a 69-year-old woman who was diagnosed with left breast cancer, and she is scheduled to have a mastectomy with sentinel lymph node biopsy. Patient is consulted about having her reconstruction with an sales agent pest control service with possible use of dermis if needed. All the risks and benefits and alternatives discussed with the patient in detail, and she is ready to proceed. The mastectomy portion of the procedure is going to be dictated by Dr. Tong separately. After mastectomy portion of procedure was completed, we have put clean drapes on the patient and a new set of instruments is used. The pectoralis muscle was re-examined. She has wide thin pectoralis muscle, so we started creating a pocket by elevating Pectoralis Major muscle under direct vision with a lighted retractor using electrocautery. Pectoralis minor muscle left in place. The inferior lateral portion of the pocket is going to be covered with serratus anterior muscle, which was elevated off the costal ridge by using electrocautery to the anterior axillary line. There was no excessive bleeding there, hemostasis was obtained using electrocautery. We measured the pocket, and it will fit for a 550 mL sales agent pest control service, which was then brought in to the back table. While I was prepping the sales agent pest control service by taking the air out and soaking it in the antibiotic solution, Dr. Tong was giving local anesthesia and a block with Exparel totaling 20 mL and also irrigated the wound with antibiotic solution with saline and gentamicin concentration 80 mg/1000 mL NS. Then we introduced the sales agent pest control service into the pocket, and it fit there without difficulties. The inferior tab was sutured into superior ridge over rectus muscle using #3-0 Vicryl, and then the lateral tab was sutured as well with #3-0 Vicryl. The pocket was easily reapproximated with pectoralis superiorly, medially, laterally, and inferior lateral portion was covered by serratus anterior muscle, which then we have closed the pocket with interrupted #3-0 Vicryl sutures. Then the area was irrigated again. We have found the port with the magnet, and the sales agent pest control service was expanded to 300 mL of injectible normal saline, which did not produce any extensive pressure on the muscle. Then two #19-Yi Kavon drains were introduced into the cavity through separate stab incisions. The medial one is laying in inferior portion of the breast, and the lateral drain is draining the axilla. Then skin flaps were in very good vascular condition. We have approximated with interrupted #3-0 Monocryl sutures in layers, and then we have applied Prineo dressing as well. Bulky dressing and a surgical bra were applied. Patient tolerated procedure well. Extubated in operating room without any difficulty. Transferred to recovery room in stable condition. MIKO
[2019-11-18 02:00] VITALS: BP 119/64
[2019-11-18] MEDS: ceFAZolin SOD 2 GM in IV 1 EA IV SCH (04:59)
[2019-11-18] MEDS: KETOROLAC TROMETHAMINE 10 MG TAB PO PRN (05:05)
[2019-11-18 06:00] VITALS: BP 134/69
[2019-11-18] MEDS ORDERED: LEVOTHYROXINE 100MCG TABLET (0.1MG) PO SCH (06:00)
[2019-11-18] MEDS ORDERED: DIFL150T PO (06:50)
--- NOTE | 2019-11-18 07:26 | IPNPDOC ---
Subjective General Date Seen: Nov 18, 2019 Subject Chief Complaint/History The patient is a 69-year-old female admitted with a reason for visit of Lt Breast Ca s/p left skin sparing mastectomy with TE placement and left sentinel lymph node biopsy POD1. Patient is doing well postop. No N/V. No issues with breathing. Voided. Tolerated diet. Drains with 120 cc and 10 cc since surgery. Pain is controlled Patient seen together on rounds with Dr Blackmon Current Medications Current Medications Current Medications Medications (Trade) Dose Ordered Sig/Rashaun Route PRN Reason Start Time Stop Time Status Last Admin Dose Admin Acetaminophen (Tylenol Tab) 650 mg Q6H PRN PO MILD PAIN (PS 1-4) 11/17/19 17:00 Cefazolin Sodium/ Dextrose 2 gm/IV Miscellaneous Supplies 50 ml @ 75 mls/hr Q8H IV 11/17/19 21:00 11/18/19 20:59 11/18/19 04:59 Fentanyl Citrate (Sublimaze) 25 mcg Q5MP PRN IV PAIN LEVEL 5-10 11/17/19 16:30 11/17/19 17:30 DC Ketorolac Tromethamine (ToRADol) 10 mg Q6HP PRN PO MODERATE PAIN (PS 5-7) 11/17/19 17:00 11/22/19 16:59 11/18/19 05:05 Lactated Ringer's 1,000 ml @ 75 mls/hr [id number] IV 11/17/19 16:53 11/18/19 04:32 DC 11/17/19 17:36 Lactated Ringer's 1,000 ml @ 100 mls/hr Q10H IV 11/17/19 16:30 11/17/19 17:30 DC Levothyroxine Sodium (Synthroid) 100 mcg DAILY@06 PO 11/18/19 06:00 11/18/19 04:59 Lidocaine HCl (LIDOCAINE 1% MDV 20ml) 0.1 ml ONCE PRN SQ DISCOMFORT BEFORE IV START 11/17/19 06:00 11/17/19 17:01 DC Ondansetron HCl (ZOFRAN INJection) 4 mg Q4H PRN IV NAUSEA OR VOMITING 11/17/19 17:00 Ondansetron HCl (ZOFRAN INJection) 4 mg Q4HP PRN IV NAUSEA OR VOMITING 11/17/19 16:30 11/17/19 17:30 DC 11/17/19 16:43 Oxycodone HCl (Roxicodone, Oxyir) 5 mg ASDIRECTED PRN PO PAIN LEVEL 1-4 11/17/19 16:30 11/17/19 17:30 DC 11/17/19 16:44 Oxycodone/ Acetaminophen (Percocet 5mg/ 325mg Tablet) 1 tab Q4HP PRN PO MILD/MODERATE PAIN (PS 1-7) 11/17/19 17:00 Allergies Coded Allergies: Sulfa (Sulfonamide Antibiotics) (Verified Allergy, Severe, anaphylaxis, 11/03/19) erythromycin base (Verified Adverse Reaction, Mild, Stomach cramps, 11/03/19) Objective Physical Examination Examination GENERAL APPEARANCE:Patient seen, laying in bed, awake, alert, and oriented. Comfortable, in no acute distress. SKIN: Warm and moist. BREAST: Right normal, left breast mastectomy flap wizble, warm, TE in place, 2 drains w s/s output. no hematoma HEENT: Normocephalic, atraumatic. NECK: Supple, LUNGS: breathing comfortable on room air HEART:no tachycardia ABDOMEN: nondistended EXTREMITIES:moving both upper extremities. Movement of left hand causes some discomfort Vital Signs Vital Signs Date Time Temp Pulse Resp B/P (MAP) Pulse Ox O2 Delivery O2 Flow Rate FiO2 11/18/19 06:00 97.7 52 19 134/69 (90) 97 Room Air 11/17/19 20:05 2.0 I&Os I&O- Last 24 Hours up to 6 AM 11/18/19 06:00 Intake Total 2465 ml Output Total 1055 ml Balance 1410 ml Laboratory Data Labs 24H Laboratory Tests 2 11/17/19 16:23: HIV Antigen/Antibody Combo Qual NEGATIVEA Impression 69 y o F with L breast CA, s/p L SSM with TE placement and L SLNBx POD1 - drain teaching per nursing staff today - pain control - encourages ambulation and IS - no need for abx to go home - continue to wear surgical bra till seen in Dr Blackmon's clinic - f/u with Dr Oscar in 2 weeks, office will call with appt - stable for discharge today with close follow up Plan / VTE VTE Prophylaxis Ordered?: Yes MARK HURT DO Nov 18, 2019 07:07
--- NOTE | 2019-11-18 07:29 | IPNPDOC ---
Subjective General Date Seen: Nov 18, 2019 Subject Chief Complaint/History The patient is a 69-year-old female admitted with a reason for visit of Lt Breast Ca. S/p left mastectomy with SLNB and immediate reconstruction with animal attendant. POD 1. Doing well. Tolerating diet, ambulating, pain controlled. Current Medications Current Medications Current Medications Medications (Trade) Dose Ordered Sig/Rashaun Route PRN Reason Start Time Stop Time Status Last Admin Dose Admin Acetaminophen (Tylenol Tab) 650 mg Q6H PRN PO MILD PAIN (PS 1-4) 11/17/19 17:00 Cefazolin Sodium/ Dextrose 2 gm/IV Miscellaneous Supplies 50 ml @ 75 mls/hr Q8H IV 11/17/19 21:00 11/18/19 20:59 11/18/19 04:59 Fentanyl Citrate (Sublimaze) 25 mcg Q5MP PRN IV PAIN LEVEL 5-10 11/17/19 16:30 11/17/19 17:30 DC Ketorolac Tromethamine (ToRADol) 10 mg Q6HP PRN PO MODERATE PAIN (PS 5-7) 11/17/19 17:00 11/22/19 16:59 11/18/19 05:05 Lactated Ringer's 1,000 ml @ 75 mls/hr [id number] IV 11/17/19 16:53 11/18/19 04:32 DC 11/17/19 17:36 Lactated Ringer's 1,000 ml @ 100 mls/hr Q10H IV 11/17/19 16:30 11/17/19 17:30 DC Levothyroxine Sodium (Synthroid) 100 mcg DAILY@06 PO 11/18/19 06:00 11/18/19 04:59 Lidocaine HCl (LIDOCAINE 1% MDV 20ml) 0.1 ml ONCE PRN SQ DISCOMFORT BEFORE IV START 11/17/19 06:00 11/17/19 17:01 DC Ondansetron HCl (ZOFRAN INJection) 4 mg Q4H PRN IV NAUSEA OR VOMITING 11/17/19 17:00 Ondansetron HCl (ZOFRAN INJection) 4 mg Q4HP PRN IV NAUSEA OR VOMITING 11/17/19 16:30 11/17/19 17:30 DC 11/17/19 16:43 Oxycodone HCl (Roxicodone, Oxyir) 5 mg ASDIRECTED PRN PO PAIN LEVEL 1-4 11/17/19 16:30 11/17/19 17:30 DC 11/17/19 16:44 Oxycodone/ Acetaminophen (Percocet 5mg/ 325mg Tablet) 1 tab Q4HP PRN PO MILD/MODERATE PAIN (PS 1-7) 11/17/19 17:00 Allergies Coded Allergies: Sulfa (Sulfonamide Antibiotics) (Verified Allergy, Severe, anaphylaxis, 11/03/19) erythromycin base (Verified Adverse Reaction, Mild, Stomach cramps, 11/03/19) Objective Physical Examination Examination GENERAL APPEARANCE:Patient seen, laying in bed, awake, alert, and oriented. Comfortable, in no acute distress. SKIN: Warm and moist. BREAST: Right and left soft, non-tender incisions intact. JESSICA drains: 10/120 cc/24 hr. Flaps viable LUNGS: Clear to auscultation bilaterally. No wheezing appreciated. HEART: No chest wall abnormalities. Regular rate and rhythm with no murmurs appreciated. ABDOMEN: Abdomen is soft, non-tender, non-distended. Incision intact. EXTREMITIES: No edema identified. No calf tenderness. Vital Signs Vital Signs Date Time Temp Pulse Resp B/P (MAP) Pulse Ox O2 Delivery O2 Flow Rate FiO2 11/18/19 06:00 97.7 52 19 134/69 (90) 97 Room Air 11/17/19 20:05 2.0 I&Os I&O- Last 24 Hours up to 6 AM 11/18/19 06:00 Intake Total 2465 ml Output Total 1055 ml Balance 1410 ml Laboratory Data Labs 24H Laboratory Tests 2 11/17/19 16:23: HIV Antigen/Antibody Combo Qual NEGATIVEA Impression Left breast CA. S/p Left mastectomy with immediate reconstruction with animal attendant. POD 1 Doing well Stable for discharge Instructions given. Monitor JESSICA drains at home. F/up Breast surgery F/up Plastic surgery Plan / VTE VTE Prophylaxis Ordered?: Yes ESTHER GANNON DO Nov 18, 2019 07:29
[2019-11-18] MEDS ORDERED: PERCOCET PO (07:32)
[2019-11-18 10:00] VITALS: BP 138/70
--- NOTE | 2019-11-18 15:15 | ROOPDOC ---
[facility] Report Of Operation Report of Operation DATE OF PROCEDURE: 11/17/19 PREPROCEDURE DIAGNOSES: Left breast cancer POSTPROCEDURE DIAGNOSES: Left breast cancer. PROCEDURE: Left skin sparing mastectomy with tissue vegetable loader machine operator placement and left sentinel lymph node biopsy. SURGEON: Mark Tong MD SCREENER AND BLENDER OPERATOR: Sidra Blackmon MD ANESTHESIA: General anesthetic was used. ESTIMATED BLOOD LOSS: Approximately 50 mL. COMPLICATIONS: none. REMARKS: Left Mastectomy specimen is oriented with double black short suture superior and double long black suture lateral. One high signal sentinel lymph node was identified and one palpable lymph node was identified as well. DESCRIPTION OF PROCEDURE: INDICATIONS: Ms. Cherry is a 69-year-old lady who was found to have a left breast mass on her mammogram. 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 She presented to the clinic and was found to have a palpable left axillary node. The ultrasound of the axilla was ordered and showed two morphologically normal appearing lymph nodes, mildly enlarger. The mild enlargement was attributed to reactive nodes since patient had biopsy prior to clinical examination. Patient underwent MRI of breast and was found to have additional two other suspicious lesions in the left breast. No abnormalities were found in the right breast. Left axillary lymph nodes were mildly enlarged. Patient underwent second look US which was able to identify one of the suspicious lesions. Biopsy of that lesion came back as ADH. The other suspicious lesion came back as ADH as well and was biopsied with MRI. Patient initially wanted breast conserving surgery and was sent for second opinion to [facility] as I felt breast conservation is not possible due to extent of IDC and two different foci on ADH, all in different quadrants. Patient eventually agreed to mastectomy with reconstruction and left sentinel lymph node biopsy. Risks and possible complications of surgical procedure including bleeding, infection and injury to surrounding structures were explained to the patient and she wished to proceed. Consent was signed. Subcutaneous heparin 5000 units was given to patient in the preop area. Lymphoscintigraphy was reviewed preoperatively and the tracer was found in the left axilla. DETAILS: Patient was taken to the operating room and placed supine on the operating room table. A sign in was called stating patients name, date of and the procedure to be done. Preoperative antibiotics were infused. Smooth induction of general anesthesia was done. Patients hands were extended on arm rests. Care was taken not to over extend patients arms. Patients both breasts and left axilla were prepped and draped in the usual fashion. Neoprobe was used to zeeshan the site of maximal signal in the axilla. The left breast possible tumor extension was marked on the skin using ultrasound guidance. Clips marking the ADH extensions were noted and marked on the skin as well. Appropriate time out was done and patients name, date of , and the procedure to be done were confirmed. Procedure was started with skin sparing mastectomy portion. Small transverse elliptical incision incorporating nipple areolar complex was made with scalpel number 15 extending beyond the marked breast cancer location close to the nipple. The location of the cancer was marked with single Vicryl stitch placed over the overlying skin. Subcutaneous flaps were developed using electrocautery dissection. Dissection was carried toward the inframammary fold inferiorly, toward sternum medially, toward inf erior aspect of clavicle superiorly and toward the axilla laterally. As the dissection progressed, the single Vicryl stitches were placed at the areas of mastectomy specimen overlying the clips marking location of ADH. Doctor Paleys assistance was critical in allowing fast progression of the case and decreasing anesthesia time. Breast tissue was dissected from the muscle posteriorly and pectoralis fascia was taken with the specimen. The dissection was carried all the way to the [facility] making sure that axilla is not entered prematurely. Breast specimen was marked for orientation with short double Silk stitch marking superior edge of mastectomy and long stitch double Silk stitch marking latera edge of mastectomy. The specimen was weighted and weight of 740 grams was reported. The specimen was then placed in formaldehyde, and passed to pathology. Mastectomy cavity was irrigated and hemostasis was achieved. Doctor Paleys assistance was critical in achieving adequate hemostasis and progressing the case safely. Next, our attention was turned toward the left axilla which was accessed from the mastectomy site. Clavipectoral fascia was opened over the site of maximum Neoprobe signal. Area of high signal was identified deep to lateral border of the pectoralis major muscle. Randolph lymph node #1 was identified and 10 second [place] [id number]. The palpable lymph node was identified in the lateral and superior aspect of axilla and also resected. This lymph node did not have any signal. Specimens were labeled appropriately and sent to pathology. Axilla was explored for presence of any additional lymph nodes and none were identif ied. 10 second count of the background was 1 (one). Doctor Chu assistance with identification of sentinel lymph nodes was again critical to avoid injury to surrounding nerves. The axilla was irrigated and hemostasis was achieved. At this point, two 19 [place] Kavon drains were placed. One drain was placed into the mastectomy cavity and the other was placed into the axilla. The drains were placed through separate stab incisions and secured at the skin with stitches. Next, pectoral and serratus plane blocks on the side were also done with Exparel. The left skin sparing mastectomy and left sentinel lymph node biopsy portion of the procedure was completed. Instrument and sponge count was correct. The chest was re-prepped and re-draped for Dr Chu part of procedure involving tissue vegetable loader machine operator placement. Please refer to Dr. Chu note for details of this part of the procedure. I assisted with the reconstruction part of the procedure as well and stayed scrubbed throughout entire procedure to expedite the case and assist with hemostasis. The left breast incision skin edges appeared dusky and were trimmed back. Hemostasis was achieved again. The excised skin edges were sent to pathology as a specimen named additional skin edge. Left breast incision was closed in the usual fashion. Deep dermal sutures were placed with 2-0 Vicryl to approximate mastectomy site edges. Dermis was closed with 3-0 Vicryl. Final instrument and sponge count was correct. Dermabond and Prineo surgical dressing was placed. Patient emerged from general anesthesia without any problems. Patient tolerated procedure well and was taken to recovery unit in stable condition. MARK TONG DO Nov 17, 2019 21:51
[2019-11-19 11:31] LABS: HEP C VIRUS AB INDEX SOURCE PT 0.1 INDEX (0.0-0.8); HEPATITIS B SURFACE ANTIGEN NEGATIVE (NEGATIVE)
[2019-11-29] MEDS ORDERED: CIPR-249 PO (11:31)
[2019-12-02] MEDS ORDERED: OLAN10TA2 PO (14:30)
[2019-12-02] MEDS ORDERED: PROC10TA4 PO (14:30)
[2019-12-02] MEDS ORDERED: ONDA8TAB10 PO (14:30)
[2019-12-27] MEDS ORDERED: ACYC200C8 PO (08:09)
[2019-12-27] MEDS ORDERED: LEVO112T2 PO (08:12)
[2020-01-04] MEDS ORDERED: LOMO2.5T PO (14:30)
[2020-01-06] MEDS ORDERED: MAGICMW SSP (14:35)
[2020-01-13] MEDS ORDERED: MAGICMW SSP (12:50)
== END 2019-11-18 10:45 | disposition home or self-care (01) ==
LOC: M SDC 08:50 → M MS5PR 16:53 → M SDC 17:25 → M MS5PR 17:25 → M SDC 11-18 10:45 → M MS5PR 11-18 10:45 → UNDODISOB 01-18 10:45
PROVIDERS: ADMIT Plastic Surgery Surgery of the Hand; ATTEND Surgery
DX: C50.912 Malignant neoplasm of unspecified site of left female breast (principal); Z17.0 Estrogen receptor positive status [ER+]; E03.9 Hypothyroidism, unspecified; K21.9 Gastro-esophageal reflux disease without esophagitis; E66.9 Obesity, unspecified; E78.49 Other hyperlipidemia; Z88.2 Allergy status to sulfonamides; Z88.1 Allergy status to other antibiotic agents; Z79.899 Other long term (current) drug therapy
CPT/HCPCS: 19303; 19357; 36415; 38525; 78195; 86803; 86850; 86900; 86901; 87340; 87389; 88305; 88307; 88309; 96365; 96366; A9541; C9290; J0131; J0690; J1100; J1580; J1644; J2250; J2370; J2405; J2765; J3010

== ENCOUNTER → 2019-12-03 | Outpatient (CLI) | payer OTHER ==
[~2019-12-03] MED LIST changes: +CIPR-249 PO; +DIFL150T PO; +LIDO2.5C15; -LIDOCAINE 1% MDV 20ML VIAL SQ PRN; -LR 1,000 ML IV ONE; +OLAN10TA2 PO; +ONDA8TAB10 PO; +PERCOCET PO; +PROC10TA4 PO; -ceFAZolin SOD 2 GM in IV 1 EA IV ONE
--- NOTE | 2019-12-03 18:10 | ECHO ---
DATE OF PROCEDURE: 12/03/2019 REFERRING PHYSICIAN: Dr. Jennifer Rodriguez INDICATION: Chemotherapy that may affect the heart, breast cancer. HEIGHT: 5 feet 4 inches WEIGHT: 208 pounds 2D MEASUREMENTS: Aortic annulus: 2.0 cm Ventricular 1.07 cm Posterior wall: 1.07 cm Left ventricle diastole: 4.1 cm Left atrium: 3.4 cm Aortic root: 2.6 cm Inferior vena cava: 1.8 cm with normal respiratory variation. DOPPLER MEASUREMENTS: No aortic regurgitation. No aortic stenosis. Aortic valve velocity: 136 cm/s LVOT velocity: 111 cm/s LVOT VTI: 24.1 cm No mitral regurgitation. Mitral E velocity: 90.0 cm/s Mitral A velocity: 113 cm/s No tricuspid regurgitation. No pulmonic regurgitation. Pulmonary acceleration time: 102 ms MITRAL ANNULAR TISSUE DOPPLER: E prime septal: 8.59 cm/s E prime lateral: 11.6 cm/s DESCRIPTION: Rhythm was sinus. This was a technically difficult echocardiogram. This was a 2D, M-mode, color flow Doppler and pulse wave Doppler examination and included mitral annular tissue Doppler. CONCLUSIONS: 1. Normal left ventricle internal dimensions and wall thickness. No regional wall motion abnormalities. Hyperdynamic left ventricular (LV) systolic function. Left ventricular ejection fraction (LVEF) 75% by visual estimate. Normal LV diastolic function for age and heart rate. 2. No pericardial effusion. 3. Normal right ventricle size and systolic function. 4. Technically difficult echocardiogram. MTDD
== END ==
LOC: M CARPUL 12-01 09:55
PROVIDERS: ATTEND Internal Medicine Medical Oncology
DX: C50.919 Malignant neoplasm of unspecified site of unspecified female breast (principal)

== ENCOUNTER → 2019-12-06 | Outpatient (CLI) | payer OTHER ==
[2019-12-06 10:23] LABS: BASO # 0.1 10^3/uL (0.0-0.2); BASO % 1.4 % (0.0-1.0); EOS # 0.4 10^3/uL (0.0-0.5); EOS % 5.1 % (0.0-3.0); HEMATOCRIT 39.5 % (36.0-47.0); HEMOGLOBIN 12.9 g/dl (12.0-15.5); LYMPH # 2.2 10^3/uL (1.5-5.0); LYMPH % 27.1 % (24.0-44.0); MEAN CORPUSCULAR HEMOGLOBIN 30.4 pg (27.0-33.0); MEAN CORPUSCULAR HGB CONC 32.7 g/dl (32.0-36.5); MEAN CORPUSCULAR VOLUME 92.9 fl (80.0-96.0); MONO # 0.6 10^3/uL (0.0-0.8); MONO % 7.3 % (0.0-5.0); NEUTROPHILS # 4.7 10^3/uL (1.5-8.5); NEUTROPHILS % 58.9 % (36.0-66.0); PLATELET COUNT, AUTOMATED 358 10^3/uL (150-450); RED BLOOD COUNT 4.25 10^6/uL (4.00-5.40)
[2019-12-06 11:05] LABS: ALBUMIN 3.8 GM/DL (3.2-5.2); ALT/SGPT 57 U/L (12-78); BILIRUBIN,TOTAL 0.7 MG/DL (0.2-1.0); BLOOD UREA NITROGEN 15 MG/DL (7-18); CALCIUM LEVEL 8.7 MG/DL (8.8-10.2); CARBON DIOXIDE LEVEL 28 MEQ/L (21-32); CHLORIDE LEVEL 104 MEQ/L (98-107); CHOLESTEROL LEVEL 238 MG/DL (<200); CHOLESTEROL RISK RATIO 4.033 (<5); CREATININE FOR GFR 0.83 MG/DL (0.55-1.30); GLOMERULAR FILTRATION RATE > 60.0 (>45); GLUCOSE, FASTING 89 MG/DL (70-100); HDL CHOLESTEROL 59 MG/DL (>40); LDL CHOLESTEROL 137 MG/DL (<100); NON-HDL-C 179 MG/DL; POTASSIUM SERUM 4.2 MEQ/L (3.5-5.1); SODIUM LEVEL 139 MEQ/L (136-145); TOTAL PROTEIN 7.7 GM/DL (6.4-8.2); TRIGLYCERIDES LEVEL 212 MG/DL (<150)
[2019-12-08 14:17] LABS: HEMOGLOBIN A1c 6.4 %
== END ==
LOC: M LAB 09:41
PROVIDERS: ATTEND Internal Medicine
DX: D50.9 Iron deficiency anemia, unspecified (principal); E78.00 Pure hypercholesterolemia, unspecified; E03.9 Hypothyroidism, unspecified

== ENCOUNTER → 2019-12-22 | Outpatient (CLI) | payer OTHER ==
[~2019-12-22] MED LIST changes: +ACYC200C8 PO; +LEVO112T2 PO; +LIDOCAINE 1% MDV 20ML VIAL As Ordered ONE; +MIDAZOLAM INJ 2MG/2ML VIAL (J2250 PER 1MG) As Ordered ONE; +PROMETHAZINE INJ 25 MG/ML VIAL (J2550) As Ordered ONE; +ceFAZolin 1GM VIAL (J0690 PER 500MG) As Ordered ONE; +diphenhydrAMINE 50MG/ML VIAL (J1200) As Ordered ONE; +fentaNYL 100 MCG/2 ML INJECTION (J3010) As Ordered ONE
--- NOTE | 2019-12-22 13:17 | REP ---
IR Ultrasound and fluoroscopy-guided port placement. IR Ultrasound of the neck. IR Moderate sedation. Clinical information: Left sided breast cancer. Physician: Dr. Salamanca. Procedure: The patient was advised of the benefits, risks, and alternatives of the procedure and informed consent was obtained. A time-out was performed with verification of the patient's name, MRN, site of procedure and type of procedure to be performed. The patient was positioned in the supine position on the angiographic table. The site was prepped and draped in the usual sterile fashion. Moderate sedation was performed by the physician including the presence of an independent trained observer who assisted and monitored the patient's level of consciousness and physiologic status. Following the administration of fentanyl and Versed , the physician spent 45 minutes of continuous face to face time with the patient. Ultrasound of the neck reveals a patent and compressible right internal jugular vein. A color receiver radiograph reveals no gross abnormality. The neck and anterior chest wall were anesthetized with lidocaine. The right internal jugular vein was accessed using a microintroducer needle under ultrasound guidance, via a lateral approach. An 018 wire was advanced into the superior vena cava, the needle was removed and a microsheath was placed. An Amplatz wire was then passed into the inferior vena cava. An incision at the internal jugular vein access site and anterior chest wall were made using a scalpel. An incision was made at the anterior chest wall. A small pocket was created using a combination of blunt and sharp dissection. A tunneling device was then used to pass the catheter from the pocket to the neck puncture site. An 8-Amharic Angio Evolver Smart power port was then positioned in the pocket. The catheter was then measured and cut. The introducer sheath was exchanged for a peel-away sheath. The catheter was passed through the peel-away sheath into the internal jugular vein and the peel-away sheath was removed. The port tip was positioned at the cavoatrial junction. The port was then accessed with a Wren needle. The port flushes and aspirates well. The puncture site in the neck was closed. The chest wall incision was then closed with 2-0 Vicryl and 4-0 Monocryl. Glue and Steri-Strips were applied. A sterile dressing was then applied. The patient tolerated the procedure well and was returned to the PRU in stable condition. Estimated blood loss: <5 ml. Complications: None. Conclusion: 1. Successful placement of an 8-Amharic Angio dynamics Smart power port via the right internal jugular vein. The port is ready for immediate use. 2. Patient to follow up in IR clinic in 2 weeks. Thank you for this referral. Electronically Signed by Tg Salamanca MD 12/22/2019 01:15 P
--- NOTE | 2019-12-22 14:07 | IRHP ---
[facility] IR Pre-Procedure H & P General Date of Service: December 22, 2019 Procedure: Same Day Surgery Interval History and Physical I have seen the patient and reviewed last H & P performed within 30 days. There is no significant interval change. History of Present Illness Chief Complaint The patient is a 69-year-old female admitted with a reason for visit of Breast Ca. PRE-PROCEDURE DIAGNOSIS:left breast ca HEART: normal rate. LUNGS: normal breathing at rest. ASA Classification ASA Classification: II-Mild systemic disease Mallampati Score: II NPO: Yes Problems with prior sedation: No Obstructive Sleep Apnea: No Plan moderate sedation Allergies Coded Allergies: Sulfa (Sulfonamide Antibiotics) (Verified Allergy, Severe, anaphylaxis, 11/03/19) erythromycin base (Verified Adverse Reaction, Mild, Stomach cramps, 11/03/19) Home Medications Scheduled Acetaminophen (Acetaminophen), 1,000 MG PO DAILY, (Reported) Azelastine HCl (Azelastine HCl), 2 SPRAY NARES DAILY, (Reported) Famotidine (Famotidine), 20 MG PO QHS, (Reported) Levothyroxine Sodium (Levothyroxine Sodium), 100 MCG PO DAILY, (Reported) Omeprazole (Omeprazole), 40 MG PO DAILY, (Reported) Urea (Urea), 40 % EX DAILYPRN, (Reported) [cordan tape], 1 STRIP EXT DAILYPRN, (Reported) Scheduled PRN Olanzapine (Olanzapine), 10 MG PO DAILY PRN for SEVERE NAUSEA Ondansetron HCl (Ondansetron HCl), 8 MG PO Q6H PRN for NAUSEA OR VOMITING Oxycodone/Acetaminophen (Oxycodone-Acetaminophen 5-325), 1 TAB PO Q4HP PRN for MILD/MODERATE PAIN (PS 1-7) Prochlorperazine Maleate (Prochlorperazine Maleate), 10 MG PO Q8HP PRN for NAUSEA OR VOMITING VS, I&O, 24H, Fishbone Vital Signs/I&O Vital Signs Date Time Temp Pulse Resp B/P (MAP) Pulse Ox O2 Delivery O2 Flow Rate FiO2 12/22/19 13:15 82 18 98 Room Air 12/22/19 12:50 2 12/22/19 11:47 97.9 JOSE JUAN ROLDAN MD December 22, 2019 14:07
[2019-12-22 14:56] VITALS: BP 127/90
== END ==
LOC: M IRPRO 11:25
PROVIDERS: ATTEND Internal Medicine Medical Oncology
DX: C50.912 Malignant neoplasm of unspecified site of left female breast (principal)
CPT/HCPCS: 36561; 99152; 99153; C1769; C1788; C1894; J0690; J1200; J1642; J1644; J2250; J3010

== ENCOUNTER → 2019-12-31 | Outpatient (REF) | payer OTHER ==
[~2019-12-31] MED LIST changes: -LIDOCAINE 1% MDV 20ML VIAL As Ordered ONE; +LOMO2.5T PO; +MAGICMW SSP; -MIDAZOLAM INJ 2MG/2ML VIAL (J2250 PER 1MG) As Ordered ONE; -PROMETHAZINE INJ 25 MG/ML VIAL (J2550) As Ordered ONE; -ceFAZolin 1GM VIAL (J0690 PER 500MG) As Ordered ONE; -diphenhydrAMINE 50MG/ML VIAL (J1200) As Ordered ONE; -fentaNYL 100 MCG/2 ML INJECTION (J3010) As Ordered ONE
== END ==
LOC: M WUC 16:13
PROVIDERS: ATTEND Nurse Practitioner Family
DX: R30.0 Dysuria (principal)

== ENCOUNTER → 2020-01-04 | Outpatient (POV) | payer OTHER ==
--- NOTE | 2020-01-06 12:18 | IRPN ---
[facility] IR Progress Note IR Progress Note DATE: Jan 05, 2020 Consent was given by patient for this telephone call. Length of call was 5 minutes. FOLLOW-UP: Status post port placement. Patient states she is doing well. No pain, discharge or swelling. No fevers or chills. Port was used without any issues. ON EXAMINATION: I reviewed the pictures the patient sent of her port site. Port site appears to be healing well. IMPRESSION: Doing well status post port placement. No further follow-up scheduled unless initiated by patient or referring provider. Thank you for this referral Allergies Coded Allergies: Sulfa (Sulfonamide Antibiotics) (Verified Allergy, Severe, anaphylaxis, 11/03/19) erythromycin base (Verified Adverse Reaction, Mild, Stomach cramps, 11/03/19) JOSE JUAN ROLDAN MD Jan 06, 2020 12:18
== END ==
LOC: M IRPOV 08:53
PROVIDERS: ATTEND Radiology Diagnostic Radiology
DX: Z45.2 Encounter for adjustment and management of vascular access device (principal)

== ENCOUNTER → 2020-01-31 | Outpatient (POV) | payer OTHER ==
[~2020-01-31] VITALS: Ht 162.6 cm; Wt 92.5 kg
[2020-01-31 12:35] VITALS: BP 160/84
--- NOTE | 2020-02-03 12:24 | IRPN ---
[facility] IR Progress Note IR Progress Note DATE: Jan 31, 2020 FOLLOW-UP: Port placement greater than 1 months ago, patient noticed redness over port just recently. Patient was started on Keflex 4 days ago. No fevers or chills. ON EXAMINATION: Port site dry. Less redness compared to pictures prior to antibiotics therapy. Skin site closed, no pus or drainage. No exposure of the port. IMPRESSION: Likely cellulitis related to last access. Port site appears less red now. Complete antibiotics. Follow up in 1 week. Allergies Coded Allergies: Sulfa (Sulfonamide Antibiotics) (Verified Allergy, Severe, anaphylaxis, 11/03/19) erythromycin base (Verified Adverse Reaction, Mild, Stomach cramps, 11/03/19) VS,Fishbone, I+O VS, Fishbone, I+O Vital Signs Date Time Temp Pulse Resp B/P (MAP) Pulse Ox O2 Delivery O2 Flow Rate FiO2 01/31/20 12:35 98.9 99 18 160/84 (109) 98 Room Air JOSE JUAN ORLDAN MD Feb 03, 2020 12:24
== END ==
LOC: M IRPOV 12:26
PROVIDERS: ATTEND Radiology Diagnostic Radiology
DX: Z45.2 Encounter for adjustment and management of vascular access device (principal)

== ENCOUNTER → 2020-02-15 | Outpatient (POV) | payer OTHER ==
[~2020-02-15] MED LIST changes: +BENA25CA4 PO; +CALC-234 PO; -CALC1TAB82 PO; +CEPH500C PO; +FERR1TAB8 PO; +FLUC150T PO; +HYDR-4571; +KEFL500C17 PO; +LEVO500T3 PO; +LINE1TAB6 PO; +PERC10TA26 PO; +PROC10TA4; +ZYVO1TAB PO; +[UNRECOGNIZED DRUG - CODE] IV
--- NOTE | 2020-02-17 08:35 | IRPN ---
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 Allergies Coded Allergies: Sulfa (Sulfonamide Antibiotics) (Verified Allergy, Severe, anaphylaxis, 11/03/19) erythromycin base (Verified Adverse Reaction, Mild, Stomach cramps, 11/03/19) JOSE JUAN ROLDAN MD Feb 17, 2020 08:35
== END ==
LOC: M TMIRPOV 12:50
PROVIDERS: ATTEND Radiology Diagnostic Radiology
DX: Z01.89 Encounter for other specified special examinations (principal); Z45.2 Encounter for adjustment and management of vascular access device

== ENCOUNTER → 2020-03-01 | Outpatient (CLI) | payer OTHER ==
[~2020-03-01] MED LIST changes: +ACETAMINOPHEN 325 MG TAB ONE; +LIDOCAINE 1% MDV 20ML VIAL ONE; +MIDAZOLAM INJ 2MG/2ML VIAL (J2250 PER 1MG) ONE; +ceFAZolin 1GM VIAL (J0690 PER 500MG) ONE; +diphenhydrAMINE 50MG/ML VIAL (J1200) ONE; +fentaNYL 100 MCG/2 ML INJECTION (J3010) ONE
--- NOTE | 2020-03-31 11:12 | POST-OPPD ---
Postoperative Procedure Note Date Of Procedure: Mar 01, 2020 Time Of Procedure: 13:00 Port Removal / Explant Clinical Information:Breast cancer. Persistent redness and swelling at port s ite. Pain. Refractory to antibiotic therapy. Physician: Dr. Salamanca Procedure: The patient was advised of the benefits, risks, and alternatives of the procedure and informed consent was obtained. A time out was performed with verification of the patient's name, MRN, site of procedure, and type of procedure to be performed. The patient was positioned in the supine position on the angiographic table. The site was prepped and draped in the usual sterile fashion. Moderate sedation was performed by the physician including the presence of an independent trained observer that assisted in monitoring the patient's level of consciousness and physiological status. Following the administration of fentanyl and Versed the physician spent time 30 minutes of continuous [id number] time with the patient. A applied statistician radiograph reveals a right-sided port. The soft tissues overlying the port were anesthetized with lidocaine. An incision was made over the port using a 15 blade scalpel in the location of the prior incision. The catheter was then freed with blunt dissection and extracted. Pressure was applied to obtain hemostasis. The port was then freed with blunt dissection and subsequently removed. The port pocket is indurated and edematous. After hemostasis was achieved, the incision was packed with Betadine soaked gauze for secondary healing. The patient tolerated the procedure well and was returned to the PRU in stable condition. EBL:Less than 5 mL Complications:None Conclusions: 1. Successful explant of a right-sided port. 2. Port pocket edematous and indurated. Port pocket was packed with iodine- soaked gauze for secondary healing. Patient to return in a week for packing removal. JOSE JUAN SALAMANCA MD Mar 31, 2020 11:12
== END ==
LOC: M IRPRO 12:40
PROVIDERS: ATTEND Radiology Diagnostic Radiology
DX: Z45.2 Encounter for adjustment and management of vascular access device (principal); C50.919 Malignant neoplasm of unspecified site of unspecified female breast
CPT/HCPCS: 36590; 99152; 99153; J0690; J1200; J2250; J3010

== ENCOUNTER → 2020-03-07 | Outpatient (CLI) | payer OTHER ==
[~2020-03-07] MED LIST changes: -ACETAMINOPHEN 325 MG TAB ONE; -LIDOCAINE 1% MDV 20ML VIAL ONE; -MIDAZOLAM INJ 2MG/2ML VIAL (J2250 PER 1MG) ONE; -ceFAZolin 1GM VIAL (J0690 PER 500MG) ONE; -diphenhydrAMINE 50MG/ML VIAL (J1200) ONE; -fentaNYL 100 MCG/2 ML INJECTION (J3010) ONE
== END ==
LOC: M ONCR 13:01
PROVIDERS: ATTEND General Practice
DX: C50.212 Malignant neoplasm of upper-inner quadrant of left female breast (principal); Z90.12 Acquired absence of left breast and nipple

== ENCOUNTER → 2020-03-08 | Outpatient (CLI) | payer OTHER ==
[~2020-03-08] MED LIST changes: +LIDOCAINE 1% MDV 20ML VIAL As Ordered ONE
--- NOTE | 2020-04-20 08:57 | REP ---
PICC LINE INSERTION WITH ARLET The procedure was performed under the direct supervision of Dr. Geronimo. The risks and benefits of the procedure were explained to the patient and informed consent was obtained. The right basilic vein was localized using ultrasound guidance. The skin was prepped and draped in a sterile fashion. 1% Lidocaine was used as a local anesthetic. Using ultrasound guidance, the basilic vein was cannulated and a 0.018 guidewire was inserted and advanced to the SVC using fluoroscopic guidance. The needle was removed and a 4.5 [place]ijani dilator and Peel-Away sheath were inserted over the guidewire. A 4.5 [place] single-lumen catheter was cut to a length of 42 cm. The dilator was removed and the catheter was inserted over the guidewire with the tip ending in the SVC. The Peel-Away sheath was removed and the catheter was flushed with heparinized saline as per hospital protocol. The catheter was affixed to the skin and a sterile dressing was applied. The patient tolerated the procedure well and there were no immediate complications. 0.2 minutes of fluoroscopy time was utilized for this procedure. MIKO
== END ==
LOC: M IRPRO 12:25 → M RAD 12:25
PROVIDERS: ATTEND Internal Medicine Medical Oncology
DX: Z45.2 Encounter for adjustment and management of vascular access device (principal); Z88.1 Allergy status to other antibiotic agents; Z88.2 Allergy status to sulfonamides
CPT/HCPCS: 36573; 76937; C1751; J1642; J1644

== ENCOUNTER → 2020-03-08 | Outpatient (CLI) | payer OTHER ==
[~2020-03-08] MED LIST changes: -LIDOCAINE 1% MDV 20ML VIAL As Ordered ONE
--- NOTE | 2020-03-31 11:21 | IRPN ---
[facility] IR Progress Note IR Progress Note DATE: Mar 08, 2020 Evaluation of the port removal site demonstrates less redness and induration. Patient states there is less pain. The packing was removed from the port pocket. No residual pus or drainage from the site. Sterile dressing was applied to the site for secondary healing. Allergies Coded Allergies: Sulfa (Sulfonamide Antibiotics) (Verified Allergy, Severe, anaphylaxis, 11/03/19) erythromycin base (Verified Adverse Reaction, Mild, Stomach cramps, 11/03/19) JOSE JUAN ROLDAN MD Mar 31, 2020 11:21
== END ==
LOC: M IRPRO 11:58 → M RAD 11:58
PROVIDERS: ATTEND Radiology Diagnostic Radiology
DX: Z45.2 Encounter for adjustment and management of vascular access device (principal); Z88.1 Allergy status to other antibiotic agents; Z88.2 Allergy status to sulfonamides

== ENCOUNTER → 2020-03-24 | Outpatient (REF) | payer OTHER | LOC: M LAB REF 16:46 | PROVIDERS: ATTEND Nurse Practitioner Family | DX: R30.0 Dysuria (principal) ==

== ENCOUNTER → 2020-03-24 | Outpatient (CLI) | payer OTHER ==
--- NOTE | 2020-03-28 12:27 | ECHO ---
DATE OF PROCEDURE: 03/24/2020 Age: 69 Gender: Female Height: 5 feet Weight: 4 inches REFERRING PHYSICIAN: Dr. Symone Rosado INDICATION: Chemotherapy drugs that may affect the heart. MEASUREMENTS: 2D Measurements: Left atrium 3.6 cm Interventricular septum 1.04 cm Posterior wall 0.84 cm Left ventricle diastole 4.0 cm Aortic root 3.0 cm Proximal ascending aorta 2.8 cm Inferior vena cava 1.6 cm with more than 50% respiratory variation. Doppler Measurements: No aortic stenosis No aortic regurgitation Aortic valve velocity 161 cm/s LVOT velocity 108 cm/s LVOT VTI 22.0 cm No mitral stenosis No mitral regurgitation Mitral E velocity 87.8 cm/s Mitral A velocity 93.8 cm/s Mitral deceleration time 120 msec No tricuspid regurgitation No pulmonic regurgitation MITRAL ANNULAR TISSUE DOPPLER E prime septal 8.9 cm/s, E prime lateral 12.4 cm/s DESCRIPTION: Rhythm was sinus. Image quality was fair. This was a 2D, M-mode, color flow Doppler, and pulsed wave Doppler examination including mitral annular tissue Doppler. CONCLUSIONS: 1. Normal left ventricle internal dimensions and wall thickness. Normal regional LV wall motion and wall thickening. Normal LV systolic function. LVEF 65% by visual estimate. Normal LV diastolic function. 2. No pericardial effusion. 3. Normal appearing echocardiogram Doppler. MTDD
== END ==
LOC: M CARPUL 09:50
PROVIDERS: ATTEND Internal Medicine Medical Oncology
DX: C50.912 Malignant neoplasm of unspecified site of left female breast (principal)

== ENCOUNTER 2020-03-31 16:42 | Inpatient (IN) | payer OTHER ==
[~2020-03-31] VITALS: Ht 162.6 cm; Wt 89.7 kg
[~2020-03-31 16:42] MED LIST changes: -BENA25CA4 PO; -FERR1TAB8 PO; -HYDR-4571; -KEFL500C17 PO; -LINE1TAB6 PO; -PERC10TA26 PO; -PROC10TA4; -ZYVO1TAB PO; -[UNRECOGNIZED DRUG - CODE] IV
[2020-03-31 18:01] LABS: BASO # 0.1 10^3/uL (0.0-0.2); BASO % 0.3 % (0.0-1.0); EOS % 0.1 % (0.0-3.0); HEMATOCRIT 31.3 % (36.0-47.0); HEMOGLOBIN 10.3 g/dl (12.0-15.5); LYMPH # 2.3 10^3/uL (1.5-5.0); LYMPH % 11.9 % (24.0-44.0); MEAN CORPUSCULAR HEMOGLOBIN 31.4 pg (27.0-33.0); MEAN CORPUSCULAR HGB CONC 32.9 g/dl (32.0-36.5); MEAN CORPUSCULAR VOLUME 95.4 fl (80.0-96.0); MONO # 0.8 10^3/uL (0.0-0.8); MONO % 4.3 % (0.0-5.0); NEUTROPHILS # 15.8 10^3/uL (1.5-8.5); NEUTROPHILS % 82.4 % (36.0-66.0); PLATELET COUNT, AUTOMATED 180 10^3/uL (150-450); RED BLOOD COUNT 3.28 10^6/uL (4.00-5.40); WHITE BLOOD COUNT 19.1 10^3/uL (4.0-10.0)
[2020-03-31 18:50] LABS: BLOOD UREA NITROGEN 17 MG/DL (7-18); CALCIUM LEVEL 8.1 MG/DL (8.8-10.2); CARBON DIOXIDE LEVEL 22 MEQ/L (21-32); CHLORIDE LEVEL 108 MEQ/L (98-107); CREATININE FOR GFR 0.75 MG/DL (0.55-1.30); GLOMERULAR FILTRATION RATE > 60.0 (>45); GLUCOSE, FASTING 112 MG/DL (70-100); SODIUM LEVEL 140 MEQ/L (136-145)
[2020-03-31] MEDS ORDERED: VANCOMYCIN HCL 1,000 MG, VIAL MATE ADAPTER 1 EACH in D5W 250 ML IV ONE (20:30)
[2020-03-31] MEDS ORDERED: PIPERACILLIN/TAZOBACTAM SOD 3.375 GM in D5W MINI-BAG PLUS 50 ML IV ONE (20:30)
[2020-03-31] MEDS ORDERED: POTASSIUM CHLORIDE 10% LIQ 20 MEQ/15 ML UDC PO ONE (22:15)
[2020-03-31] MEDS ORDERED: MAALOX 30 ML SUSP *UDC PO PRN (22:15)
[2020-03-31] MEDS ORDERED: NS 1,000 ML IV SCH (22:15)
[2020-03-31] MEDS ORDERED: MOM 30ML SUSPENSION UDC PO PRN (22:15)
--- NOTE | 2020-03-31 22:22 | HPEPDOC ---
[facility] Medical History & Physical Date of Admission Mar 31, 2020 Date of Service: Mar 31, 2020 Primary Care Physician: Mary Richardson Attending Physician: KEESHA CABRERA MD History and Physical TIME OF SERVICE: 1125pm CHIEF COMPLAINT: pain and swelling HISTORY OF PRESENT ILLNESS: This is a 69 yr old F w a hx of chemo port site cellulitis. In January she had her chemo held bc of port infection and was given abx. In February the port was removed and she was given another trial of abx for 1 week. This morning she notice that her right arm was hard to move; this evening she noticed redness, pain and swelling at her right upper chest. She denied having f/c/n/v. 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 HOME MEDICATIONS: Please see below. VITAL SIGNS: Please see below. GENERAL APPEARANCE: obese/ well developed /NAD HEENT: no scleral icterus / EOMI CARDIOVASCULAR: RRR/NMRG / radial pulses intact LUNGS: CTAB on RA ABDOMEN: soft & not tender w palpitation MUSCULOSKELETAL: SASKIA x 4 INTEGUMENT: + rubor, dalor and calor at right upper chest / no generalized pallor NEUROLOGICAL: CN -12 intact / speech not dysarthric PSYCHIATRIC: A&Ox 3 /able to understand and follow all commands LABORATORY DATA: See below. IMAGING: CT chest IMPRESSION: 1. 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 2. Right PICC line extending to the distal superior vena cava. 3. There is borderline distention of the stomach which in view of a somewhat contracted gallbladder likely reflects recent ingestion. 4. Punctate nonobstructing right renal calculus. 5. Otherwise negative CT chest. MICROBIOLOGY: Please see below. ASSESSMENT: is a 69 yr old w a hx of breast cancer and left chest wall cellulitis requiring port removal who presented with recurrent pain, redness and swelling of the upper chest and will be admitted for sepsis 2/2 chest wall cellulitis. PLAN: 1Sepsis 2/2 left chest wall cellulitis SIRS criterial leukocytosis sand tachycardia Plan: admit to PCU / f/u lactic acid & blood cx / IVF / ceftriaxone and Vancomycin / will ask day time team to consult or ID at [facility] of the recurrent nature of her infection / acetaminophen for fever and tramadol for severe pain 2 Hypokalemia Plan: replete K & f/u Mag 3 N Anemia Plan: f/u Iron studies Dispo: home after more than 2 midnights stay 4 Breast Cancer Plan: f/u w H/O as scheduled 5 Hypothyroidism Plan: levothyroxine 6 Obesity w BMI of 33.6 complicates care Plan: f/u A1C DVT Px w Lovenox Dispo: home after more than 2 midnights stay Vital Signs Vital Signs Date Time Temp Pulse Resp B/P (MAP) Pulse Ox O2 Delivery O2 Flow Rate FiO2 03/31/20 17:58 03/31/20 16:43 97.8 117 20 98 Room Air Laboratory Data Labs 24H Laboratory Tests 2 03/31/20 17:48: Immature Granulocyte % (Auto) 1.0, Neutrophils (%) (Auto) 82.4H, Lymphocytes (%) (Auto) 11.9L, Monocytes (%) (Auto) 4.3, Eosinophils (%) (Auto) 0.1, Basophils (%) (Auto) 0.3, Neutrophils # (Auto) 15.8H, Lymphocytes # (Auto) 2.3, Monocytes # (Auto) 0.8, Eosinophils # (Auto) 0.0, Basophils # (Auto) 0.1, Nucleated Red Blood Cells % (auto) 0.0, Anion Gap 10, Glomerular Filtration Rate > 60.0, Calcium Level 8.1L 03/31/20 21:01: CBC/BMP Laboratory Tests 03/31/20 17:48 Microbiology Microbiology 03/31/20 Blood Culture, Received Pending 03/31/20 Blood Culture, Received Pending Home Medications Scheduled Azelastine HCl (Azelastine HCl) 0.15% [place].pump, 2 SPRAY NARES DAILY Levothyroxine Sodium (Levothyroxine Sodium) 112 Mcg Tablet, 112 MCG PO DAILY Omeprazole (Omeprazole) 40 Mg Cap, 40 MG PO DAILY PATIENT USES PRN Scheduled PRN Acetaminophen (Acetaminophen) 500 Mg Tablet, 1,000 MG PO DAILY PRN for PAIN / FEVER Diphenhydramine HCl (Benadryl) 25 Mg Capsule, 25 MG PO DAILY PRN for REDNESS/IRRITATION Diphenoxylate HCl/Atropine (Lomotil 2.5-0.025 mg Tablet) 1 Each Tablet, 2 TAB PO QID PRN for DIARRHEA Ondansetron HCl (Ondansetron HCl) 8 Mg Tablet, 8 MG PO Q6H PRN for NAUSEA OR VOMITING Allergies Coded Allergies: Sulfa (Sulfonamide Antibiotics) (Verified Allergy, Severe, anaphylaxis, 11/03/19) erythromycin base (Verified Adverse Reaction, Mild, Stomach cramps, 11/03/19) A-FIB/CHADSVASC A-FIB History Current/History of A-Fib/PAF?: No Current PO Anticoag Therapy: No KEESHA CABRERA MD Mar 31, 2020 22:22
[2020-03-31] MEDS ORDERED: LOMO2.5T PO (22:34)
[2020-03-31] MEDS ORDERED: BENA25CA4 PO (22:34)
--- NOTE | 2020-03-31 23:39 | REPVR ---
PROCEDURE INFORMATION: Exam: CT Chest Without Contrast Exam date and time: 03/31/2020 10:14 PM Age: 69 years old Clinical indication: Other: Cellulitis chest wall; Prior surgery; Surgery date: <1 month; Surgery type: Infusaport removal; Additional info: Chest wall cellulitis S/P port cath removal TECHNIQUE: Imaging protocol: Computed tomography of the chest without contrast. 3D rendering (Not supervised by radiologist): MIP and/or 3D reconstructed images were created by the technologist. Radiation optimization: All CT scans at this facility use at least one of these dose optimization techniques: automated exposure control; mA and/or kV adjustment per patient size (includes targeted exams where dose is matched to clinical indication); or iterative reconstruction. COMPARISON: CR CHEST 2 VIEWS 11/01/2019 3:11 PM FINDINGS: Tubes, catheters and devices: Right PICC line extending to the distal superior vena cava. Lungs: Unremarkable. No consolidation. No masses. Pleural space: Unremarkable. No pneumothorax. No pleural effusion. Heart: Unremarkable. No cardiomegaly. No pericardial effusion. Pulmonary arteries: The main pulmonary artery measures 24 mm. Aorta: The ascending thoracic aorta measures 30 mm. Lymph nodes: Small mediastinal nodes which are within normal limits. Gallbladder and bile ducts: The gallbladder is somewhat contracted with no stones. Kidneys and ureters: Punctate nonobstructing right renal calculus. Stomach and bowel: Borderline distention of the stomach with food material. Bones/joints: Unremarkable. No acute fracture. Soft tissues: Tissue junior network engineer in the left breast. No significant subcutaneous edema. IMPRESSION: 1. Left breast tissue junior network engineer. 2. Right PICC line extending to the distal superior vena cava. 3. There is borderline distention of the stomach which in view of a somewhat contracted gallbladder likely reflects recent ingestion. 4. Punctate nonobstructing right renal calculus. 5. Otherwise negative CT chest. Electronically signed by: Louis Dougherty On 03/31/2020 23:39:18 PM
[2020-04-01 00:35] LABS: MAGNESIUM LEVEL 1.9 MG/DL (1.8-2.4)
[2020-04-01] MEDS ORDERED: diphenhydrAMINE 25MG CAP PO PRN (00:45)
[2020-04-01] MEDS ORDERED: ONDANSETRON 4 MG TAB PO PRN (00:45)
[2020-04-01 02:10] VITALS: BP 128/77
[2020-04-01] MEDS: VANCOMYCIN HCL 1,000 MG, VIAL MATE ADAPTER 1 EACH in D5W 250 ML IV SCH ×2 (02:54→15:00)
[2020-04-01] MEDS: ACETAMINOPHEN TAB 650MG DOSE (2X325MG) PO PRN (02:54)
[2020-04-01 04:00] VITALS: BP 140/76
[2020-04-01] MEDS ORDERED: cefTRIAXone SOD 1 GM in D5W MINI-BAG PLUS 50 ML IV SCH (05:00)
[2020-04-01] MEDS: LEVOTHYROXINE 112MCG TABLET (0.112MG) PO SCH (05:03)
[2020-04-01 05:11] LABS: HEMATOCRIT 29.3 % (36.0-47.0); HEMOGLOBIN 9.7 g/dl (12.0-15.5); MEAN CORPUSCULAR HEMOGLOBIN 31.5 pg (27.0-33.0); MEAN CORPUSCULAR HGB CONC 33.1 g/dl (32.0-36.5); MEAN CORPUSCULAR VOLUME 95.1 fl (80.0-96.0); PLATELET COUNT, AUTOMATED 156 10^3/uL (150-450); RED BLOOD COUNT 3.08 10^6/uL (4.00-5.40)
[2020-04-01 05:22] LABS: HEMOGLOBIN A1c 6.1 %
[2020-04-01 05:32] LABS: BLOOD UREA NITROGEN 16 MG/DL (7-18); CARBON DIOXIDE LEVEL 23 MEQ/L (21-32); CHLORIDE LEVEL 113 MEQ/L (98-107); CREATININE FOR GFR 0.86 MG/DL (0.55-1.30); GLOMERULAR FILTRATION RATE > 60.0 (>45); GLUCOSE, FASTING 112 MG/DL (70-100); POTASSIUM SERUM 3.8 MEQ/L (3.5-5.1); SODIUM LEVEL 142 MEQ/L (136-145)
[2020-04-01 08:00] VITALS: BP 136/84
[2020-04-01] MEDS: ENOXAPARIN 40MG/0.4ML SYRINGE (J1650 PER 10MG) SC SCH (08:07)
[2020-04-01] MEDS: OMEPRAZOLE 20 MG CAP PO SCH (08:07)
[2020-04-01] MEDS: AZELASTINE 137MCG NASAL SPY 30 ML (ASTELIN) SCH (08:10)
[2020-04-01] MEDS: LOMOTIL 2.5MG/0.025MG TABLET PO PRN (08:38)
[2020-04-01 12:00] VITALS: BP 123/62
[2020-04-01] MEDS: PIPERACILLIN/TAZOBACTAM SOD 3.375 GM in D5W MINI-BAG PLUS 50 ML IV SCH ×2 (16:27→22:10)
[2020-04-01 20:00] VITALS: BP 125/69
[2020-04-01] MEDS: traMADol 50 MG TAB PO PRN (22:18)
[2020-04-02] MEDS: VANCOMYCIN HCL 1,000 MG, VIAL MATE ADAPTER 1 EACH in D5W 250 ML IV SCH ×2 (02:58→15:49)
[2020-04-02] MEDS: ACETAMINOPHEN TAB 650MG DOSE (2X325MG) PO PRN ×2 (03:10→16:02)
[2020-04-02] MEDS ORDERED: VANCOMYCIN HCL 500 MG in D5W MINI-BAG PLUS 100 ML IV ONE (04:00)
[2020-04-02 04:45] LABS: HEMATOCRIT 29.3 % (36.0-47.0); HEMOGLOBIN 9.4 g/dl (12.0-15.5); MEAN CORPUSCULAR HEMOGLOBIN 30.7 pg (27.0-33.0); MEAN CORPUSCULAR HGB CONC 32.1 g/dl (32.0-36.5); MEAN CORPUSCULAR VOLUME 95.8 fl (80.0-96.0); PLATELET COUNT, AUTOMATED 154 10^3/uL (150-450); RED BLOOD COUNT 3.06 10^6/uL (4.00-5.40); WHITE BLOOD COUNT 12.2 10^3/uL (4.0-10.0)
[2020-04-02 05:00] VITALS: BP 112/67
[2020-04-02 05:04] LABS: BLOOD UREA NITROGEN 10 MG/DL (7-18); CALCIUM LEVEL 7.7 MG/DL (8.8-10.2); CARBON DIOXIDE LEVEL 25 MEQ/L (21-32); CHLORIDE LEVEL 110 MEQ/L (98-107); CREATININE FOR GFR 0.72 MG/DL (0.55-1.30); GLOMERULAR FILTRATION RATE > 60.0 (>45); GLUCOSE, FASTING 102 MG/DL (70-100); POTASSIUM SERUM 3.3 MEQ/L (3.5-5.1); SODIUM LEVEL 141 MEQ/L (136-145)
[2020-04-02] MEDS ORDERED: POTASSIUM CHLORIDE 10 MEQ SR TABLET PO ONE ×2 (05:30→06:00)
[2020-04-02] MEDS: PIPERACILLIN/TAZOBACTAM SOD 3.375 GM in D5W MINI-BAG PLUS 50 ML IV SCH ×4 (05:48→21:56)
[2020-04-02] MEDS: LEVOTHYROXINE 112MCG TABLET (0.112MG) PO SCH (05:59)
[2020-04-02 06:42] LABS: MAGNESIUM LEVEL 1.9 MG/DL (1.8-2.4)
[2020-04-02 08:00] VITALS: BP 113/76
[2020-04-02] MEDS: OMEPRAZOLE 20 MG CAP PO SCH (08:27)
[2020-04-02] MEDS: AZELASTINE 137MCG NASAL SPY 30 ML (ASTELIN) SCH (08:28)
[2020-04-02] MEDS: ENOXAPARIN 40MG/0.4ML SYRINGE (J1650 PER 10MG) SC SCH (08:28)
[2020-04-02 14:00] VITALS: BP 131/77
--- NOTE | 2020-04-02 14:18 | IPNPDOC ---
Text Note Date of Service The patient was seen on 04/02/20. NOTE Subjective: no overnight events - right chest wall erythema improving Objective: General: Pleasant, NAD HEENT: NC, AT. EOMI, no scleral icterus. No pharyngeal erythema, mucous membranes moist. Neck: No lymphadenopathy or JVD CV: RRR, Normal S1 and S2. No murmurs, gallops, or rubs. Resp: CTAB with full breath sounds. No wheezes, crackles, or rhonchi. No dullness to percussion. Abdomen: Bowel sounds present. Soft, NT, ND. Extremities: No swelling or edema. Assessment/Plan: #Sepsis 2/2 left chest wall cellulitis WBC improving Plan: continue vanc and zosyn, will await Dr. Wilson's input tomorrow AW #Breast Cancer Plan: f/u w H/O as scheduled #Hypothyroidism Plan: levothyroxine DVT Px w Lovenox Dispo: 24hrs VS,Fishbone, I+O VS, Fishbone, I+O Laboratory Tests 04/02/20 04:26 Vital Signs Date Time Temp Pulse Resp B/P (MAP) Pulse Ox O2 Delivery O2 Flow Rate FiO2 04/02/20 08:00 98.4 82 18 113/76 (88) 98 Room Air I&O- Last 24 Hours up to 6 AM 04/02/20 05:59 Intake Total 1680 ml Output Total 1250 ml Balance 430 ml YANI CARLSON DO Apr 02, 2020 14:18
[2020-04-02] MEDS: traMADol 50 MG TAB PO PRN (15:41)
--- NOTE | 2020-04-02 16:06 | REPVR ---
PROCEDURE INFORMATION: Exam: US Duplex Right Upper Extremity Veins, Limited Exam date and time: 04/02/2020 1:28 PM Age: 69 years old Clinical indication: Condition or disease; Other: Chest wall cellulitis; Additional info: Spoke to Dr tyrel fisher near neck and jug v for clot TECHNIQUE: Imaging protocol: Real-time Duplex ultrasound of the Right Upper Extremity with 2-D de la fuente scale, color Doppler flow and spectral waveform analysis with image documentation. Limited exam focused on the right upper extremity veins. COMPARISON: US DUPLEX EXT UPPER VEINS UNILATE 02/18/2020 2:33 PM FINDINGS: Right deep veins: Central venous catheter in the subclavian vein. Visualized internal jugular and subclavian veins are patent. Soft tissues: Unremarkable. IMPRESSION: No evidence of deep vein thrombosis. Electronically signed by: Carlitos Painting On 04/02/2020 16:05:57 PM
[2020-04-02 22:00] VITALS: BP 139/74
[2020-04-03] MEDS: VANCOMYCIN HCL 1,000 MG, VIAL MATE ADAPTER 1 EACH in D5W 250 ML IV SCH ×2 (03:33→14:56)
[2020-04-03] MEDS: PIPERACILLIN/TAZOBACTAM SOD 3.375 GM in D5W MINI-BAG PLUS 50 ML IV SCH ×4 (04:41→22:38)
[2020-04-03 05:31] LABS: HEMATOCRIT 31.3 % (36.0-47.0); HEMOGLOBIN 10.1 g/dl (12.0-15.5); MEAN CORPUSCULAR HEMOGLOBIN 31.3 pg (27.0-33.0); MEAN CORPUSCULAR HGB CONC 32.3 g/dl (32.0-36.5); MEAN CORPUSCULAR VOLUME 96.9 fl (80.0-96.0); PLATELET COUNT, AUTOMATED 159 10^3/uL (150-450); RED BLOOD COUNT 3.23 10^6/uL (4.00-5.40); WHITE BLOOD COUNT 11.1 10^3/uL (4.0-10.0)
[2020-04-03] MEDS: LEVOTHYROXINE 112MCG TABLET (0.112MG) PO SCH (05:40)
[2020-04-03] MEDS: ACETAMINOPHEN TAB 650MG DOSE (2X325MG) PO PRN ×2 (05:44→19:41)
[2020-04-03 05:49] LABS: BLOOD UREA NITROGEN 11 MG/DL (7-18); CALCIUM LEVEL 7.9 MG/DL (8.8-10.2); CARBON DIOXIDE LEVEL 25 MEQ/L (21-32); CHLORIDE LEVEL 112 MEQ/L (98-107); CREATININE FOR GFR 0.75 MG/DL (0.55-1.30); GLOMERULAR FILTRATION RATE > 60.0 (>45); GLUCOSE, FASTING 105 MG/DL (70-100); POTASSIUM SERUM 3.3 MEQ/L (3.5-5.1); SODIUM LEVEL 142 MEQ/L (136-145)
[2020-04-03 06:00] VITALS: BP 116/74
[2020-04-03] MEDS ORDERED: SODIUM CHLORIDE 0.9% INJ 10 ML SYR IV PRN (08:15)
[2020-04-03] MEDS: LOMOTIL 2.5MG/0.025MG TABLET PO PRN ×2 (08:30→21:39)
[2020-04-03] MEDS: ENOXAPARIN 40MG/0.4ML SYRINGE (J1650 PER 10MG) SC SCH (08:30)
[2020-04-03] MEDS: OMEPRAZOLE 20 MG CAP PO SCH (08:30)
[2020-04-03] MEDS: AZELASTINE 137MCG NASAL SPY 30 ML (ASTELIN) SCH (08:31)
[2020-04-03] MEDS ORDERED: POTASSIUM CHLORIDE 10 MEQ SR TABLET PO ONE (09:00)
[2020-04-03] MEDS ORDERED: FLUCONAZOLE 50MG TABLET PO ONE (10:00)
--- NOTE | 2020-04-03 12:20 | IPNPDOC ---
Text Note Date of Service The patient was seen on 04/03/20. NOTE SUBJECTIVE: Pt reports that she still has significant pain, erythema, and heat in the area of her prior port, and this extends over the clavicle and to the base of the neck. Otherwise she is in a good mood. No overnight events, no fevers. remainder of ROS is negative. OBJECTIVE: VITAL SIGNS: Please see below. GENERAL APPEARANCE: Awake alert, NAD HEENT: no scleral icterus / EOMI CARDIOVASCULAR: RRR/NMRG / radial pulses intact LUNGS: CTAB on RA ABDOMEN: soft & not tender w palpitation INTEGUMENT: Significant erythemea of the right upper chest/clavicle area. Erythema still is about the same as the previously demarcated area NEUROLOGICAL: CN -12 intact / speech not dysarthric PSYCHIATRIC: A&Ox 3 /able to understand and follow all commands ASSESSMENT: is a 69 yr old w a hx of breast cancer and left chest wall cellulitis requiring port removal who presented with recurrent pain, redness and swelling of the upper chest and will be admitted for sepsis 2/2 chest wall cellulitis. PLAN: 1 Sepsis 2/2 left chest wall cellulitis Plan: Sepsis now resolved. WBC improving slowly. No fevers. Continue with Vanc & Zosyn. Pt still has a significant amount of pain in the area. Will hold at least one more night, outpatient recommendations for abx therapy per ID (not on today due to holiday). 2 Hypokalemia Plan: Continue to supplement 3 N Anemia Plan: Chronic stable, iron studies do not indicate iron deficiency anemia. Suspect anemia of chronic disease vs. bone marrow suppression from chemotherapy. Follow-up with heme/onc outpatient 4 Breast Cancer Plan: Follow-up with heme/onc outpatient 5 Hypothyroidism Plan: continue home dose of levothyroxine 6 Obesity w BMI of 33.6 Plan: Complicates care, dietary changes recommended DVT Px Plan: Lovenox Dispo: Recommend reevaluation by ID tomorrow, perhaps home when home abx with PICC line can be arranged. VS,Fishbone, I+O VS, Fishbone, I+O Laboratory Tests 04/03/20 05:09 Vital Signs Date Time Temp Pulse Resp B/P (MAP) Pulse Ox O2 Delivery O2 Flow Rate FiO2 04/03/20 06:00 97.4 91 18 116/74 (88) 98 Room Air I&O- Last 24 Hours up to 6 AM 04/03/20 05:59 Intake Total 1740 ml Output Total 550 ml Balance 1190 ml KADI HOLLAND DO Apr 03, 2020 12:20
[2020-04-03 14:00] VITALS: BP 119/70
--- NOTE | 2020-04-03 15:31 | PHACANCOPD ---
PHARMACY VANCOMYCIN DOSING Pt Demographics Demographics Patient Age:69 , Weight:89.500 , Gender: female Adjusted Body Weight Date: 04/03/20, Adjusted Body Weight: Kg Events Past 24 Hours Events Past 24 Hours: NO: Dialysis, Diuretic Therapy, Change in CrCl, Fever, Elevation in WBC, Pending Diagnostics, Pending Procedures, Other Vancomycin Vancomycin indication: CHEST WALL CELLULITIS Vancomycin Target Ranges: 15-20 mcg/ml Vancomycin Load Y/N: No Load Dose Date Time Vancomycin Load Dose: Date: Time: Vancomycin Dose Date: 04/03/20. Current Vancomycin Dose: Intermittent Dosing?: No Labs Micro Microbiology 04/01/20 Stool Occult Blood (EVELIA) - Final, Complete 03/31/20 Blood Culture - Preliminary, Resulted No Growth after 48 hours. All Specime... 03/31/20 Blood Culture - Preliminary, Resulted No Growth after 48 hours. All Specime... Creatinine Clearance Date:04/03/20. Creatinine Clearance: . Assessment and Plan Maintaining Current Dose?: Yes Reason for dose change: No Dose Change Pharmacist Note Pharmacist Note Date: 04/03/20. Pharmacist note:PT trough came in at 11.1mcg/ml @13:59. Dose will be changed to 750mg iv q8 hours starting 04/03 @23:00. Another trough will be drawn 04/04/20 @14:00. We will continue to monitor and adjust the dose as needed. [facility] Apr 03, 2020 15:30
[2020-04-03] MEDS: SODIUM CHLORIDE 0.9% INJ 10 ML SYR IV SCH (17:51)
[2020-04-03 22:00] VITALS: BP 142/76
[2020-04-03] MEDS: VANCOMYCIN HCL 750 MG, VIAL MATE ADAPTER 1 EACH in D5W 250 ML IV SCH (22:38)
[2020-04-04] MEDS: PIPERACILLIN/TAZOBACTAM SOD 3.375 GM in D5W MINI-BAG PLUS 50 ML IV SCH ×2 (04:45→10:25)
[2020-04-04 05:18] LABS: HEMATOCRIT 32.4 % (36.0-47.0); HEMOGLOBIN 10.3 g/dl (12.0-15.5); MEAN CORPUSCULAR HGB CONC 31.8 g/dl (32.0-36.5); MEAN CORPUSCULAR VOLUME 97.6 fl (80.0-96.0); PLATELET COUNT, AUTOMATED 194 10^3/uL (150-450); RED BLOOD COUNT 3.32 10^6/uL (4.00-5.40); WHITE BLOOD COUNT 8.7 10^3/uL (4.0-10.0)
[2020-04-04] MEDS: SODIUM CHLORIDE 0.9% INJ 10 ML SYR IV SCH ×2 (05:32→19:09)
[2020-04-04] MEDS: LEVOTHYROXINE 112MCG TABLET (0.112MG) PO SCH (05:32)
[2020-04-04 05:39] LABS: BLOOD UREA NITROGEN 9 MG/DL (7-18); CALCIUM LEVEL 8.4 MG/DL (8.8-10.2); CARBON DIOXIDE LEVEL 26 MEQ/L (21-32); CHLORIDE LEVEL 113 MEQ/L (98-107); CREATININE FOR GFR 0.72 MG/DL (0.55-1.30); GLOMERULAR FILTRATION RATE > 60.0 (>45); GLUCOSE, FASTING 95 MG/DL (70-100); POTASSIUM SERUM 3.8 MEQ/L (3.5-5.1); SODIUM LEVEL 143 MEQ/L (136-145)
[2020-04-04 06:00] VITALS: BP 114/71
[2020-04-04] MEDS: VANCOMYCIN HCL 750 MG, VIAL MATE ADAPTER 1 EACH in D5W 250 ML IV SCH ×2 (06:38→16:36)
[2020-04-04] MEDS: OMEPRAZOLE 20 MG CAP PO SCH (10:25)
[2020-04-04] MEDS: LOMOTIL 2.5MG/0.025MG TABLET PO PRN (10:25)
[2020-04-04] MEDS: ENOXAPARIN 40MG/0.4ML SYRINGE (J1650 PER 10MG) SC SCH (10:25)
[2020-04-04] MEDS: AZELASTINE 137MCG NASAL SPY 30 ML (ASTELIN) SCH (10:25)
--- NOTE | 2020-04-04 11:14 | IPNPDOC ---
Text Note Date of Service The patient was seen on 04/04/20. NOTE Subjective: Patient is a 69 year old female with a PMHx of Invasive ductal CA of Breast (s/p mastectomy), Hypothyroidism, OA, GERD, who presented to the ER with cellulitis / pus drainage around the site of her chemo port. Patient had trailed oral antibiotics in January for a suspected cellulitis around the port. Port was ultimately removed on March 01, and a PICC line was placed on March 08. Patient reported that she noted swelling / warmth / redness around the site and came in for evaluation. She was admitted to the hospitalist service for evaluat ion and treatment. Patient was seen and examined at the bedside. Currently patient reports that her chest wall cellulitis is improving. Reports reduced swelling / pain / redness. Denies any CP, shortness of breath or palpitations. Objective: Vitals (See below) General: Lying in bed, appears comfortable, AAOx3 HEENT: NC, AT CVS: RRR, +S1S2 Chest: R upper chest wall with regression from demarkation lines, decreased erythema, mild warmth and mild tenderness noted Lungs: Fair air entry b/l, -w/r/r Abdomen: Soft, ND, NT Extremities: - Edema, - Calf tenderness Assessment and plan: Sepsis 2/2 left chest wall cellulitis - likely 2/2 prior infected port - Currently reports clinical improvement - Remains afebrile / hemodynamically stable - s/p Leukocytosis - Blood cultures 03/31: no growth at 72 hours - c/w Vancomycin and Zosyn (Day #5) - Consulted infectious disease s/p Hypokalemia Normocytic Anemia - Hg remains stable - Will have outpatient follow up with Heme/Onc Breast Cancer - Invasive ductal CA of Breast (s/p mastectomy); +OR +ER HER/2 - Currently on chemotherapy - Will remain on hold pending clearance of infection - Outpatient follow up with Heme/Onc Hypothyroidism - c/w Levothyroxine Obesity - BMI of 33.6 - Complicating medical care GERD - c/w omeprazole DVT prophylaxis - c/w Lovenox Disposition: - Awaiting recommends from ID VS,Nilda, I+O VS, Nilda, I+O Laboratory Tests 04/04/20 04:51 Vital Signs Date Time Temp Pulse Resp B/P (MAP) Pulse Ox O2 Delivery O2 Flow Rate FiO2 9/8/20 06:00 97.8 83 18 114/71 (85) 98 Room Air l I&O- Last 24 Hours up to 6 AM 04/04/20 05:59 Intake Total 2370 ml Output Total 1600 ml Balance 770 ml GUCCI LONG MD Apr 04, 2020 11:14
[2020-04-04 14:00] VITALS: BP 112/70
[2020-04-04] MEDS ORDERED: VANCOMYCIN HCL 1,000 MG, VIAL MATE ADAPTER 1 EACH in D5W 250 ML IV SCH (15:00)
--- NOTE | 2020-04-04 16:39 | REPVR ---
PROCEDURE INFORMATION: Exam: US Chest, Soft Tissue Exam date and time: 04/04/2020 4:02 PM Age: 69 years old Clinical indication: Mass, lump, or swelling in the chest; Prior surgery; Surgery date: 1-6 months; Surgery type: Had port removed about a month ago; Additional info: Chest wall infusaport infection abscess right side TECHNIQUE: Imaging protocol: Real time ultrasound of the chest was performed with image documentation. Exam focused on the soft tissue. COMPARISON: CT Chest without contrast 03/31/2020 11:01 PM FINDINGS: Soft tissues: At the right supraclavicular area where the patient had a Port-A-Cath removed 1 month ago there is some induration in the soft tissues. Deep to this along the medial edge of the pectoralis muscle there are 2 linear collections of fluid which measure 1.4 cm in length by 3 mm in thickness and 2.3 cm in length by 5 mm in thickness. This could represent areas of clear fluid or infected fluid. However, there is no evidence of mass effect or large abscess. IMPRESSION: At the supraclavicular region along the medial edge of the pectoralis muscles are 2 small linear collections of fluid which could represent clear fluid or infected fluid. Electronically signed by: Beto Reagan On 04/04/2020 16:38:39 PM
[2020-04-04] MEDS: VANCOMYCIN HCL 500 MG in D5W MINI-BAG PLUS 100 ML IV SCH (17:53)
[2020-04-04 22:00] VITALS: BP 120/78
[2020-04-05] MEDS: VANCOMYCIN HCL 750 MG, VIAL MATE ADAPTER 1 EACH in D5W 250 ML IV SCH ×2 (03:17→15:58)
[2020-04-05] MEDS: VANCOMYCIN HCL 500 MG in D5W MINI-BAG PLUS 100 ML IV SCH (04:27)
[2020-04-05] MEDS: LEVOTHYROXINE 112MCG TABLET (0.112MG) PO SCH (05:55)
[2020-04-05] MEDS: SODIUM CHLORIDE 0.9% INJ 10 ML SYR IV SCH ×2 (05:56→17:12)
[2020-04-05 06:00] VITALS: BP 126/83
[2020-04-05] MEDS: LOMOTIL 2.5MG/0.025MG TABLET PO PRN (06:05)
[2020-04-05] MEDS: ACETAMINOPHEN TAB 650MG DOSE (2X325MG) PO PRN (06:05)
[2020-04-05 08:01] LABS: HEMATOCRIT 31.6 % (36.0-47.0); HEMOGLOBIN 10.2 g/dl (12.0-15.5); MEAN CORPUSCULAR HEMOGLOBIN 31.4 pg (27.0-33.0); MEAN CORPUSCULAR HGB CONC 32.3 g/dl (32.0-36.5); MEAN CORPUSCULAR VOLUME 97.2 fl (80.0-96.0); PLATELET COUNT, AUTOMATED 227 10^3/uL (150-450); RED BLOOD COUNT 3.25 10^6/uL (4.00-5.40); WHITE BLOOD COUNT 8.4 10^3/uL (4.0-10.0)
[2020-04-05 08:27] LABS: BLOOD UREA NITROGEN 9 MG/DL (7-18); CALCIUM LEVEL 8.3 MG/DL (8.8-10.2); CARBON DIOXIDE LEVEL 29 MEQ/L (21-32); CHLORIDE LEVEL 109 MEQ/L (98-107); CREATININE FOR GFR 0.68 MG/DL (0.55-1.30); GLOMERULAR FILTRATION RATE > 60.0 (>45); GLUCOSE, FASTING 95 MG/DL (70-100); MAGNESIUM LEVEL 2.2 MG/DL (1.8-2.4); POTASSIUM SERUM 4.3 MEQ/L (3.5-5.1); SODIUM LEVEL 141 MEQ/L (136-145)
[2020-04-05] MEDS: AZELASTINE 137MCG NASAL SPY 30 ML (ASTELIN) SCH (09:15)
[2020-04-05] MEDS: OMEPRAZOLE 20 MG CAP PO SCH (09:15)
[2020-04-05] MEDS ORDERED: LIDOCAINE 1% MDV 20ML VIAL As Ordered ONE (12:01)
[2020-04-05 14:00] VITALS: BP 135/88
[2020-04-05] MEDS: ENOXAPARIN 40MG/0.4ML SYRINGE (J1650 PER 10MG) SC SCH (15:58)
--- NOTE | 2020-04-05 16:15 | IPNPDOC ---
Text Note Date of Service The patient was seen on 04/05/20. NOTE Subjective: Patient is a 69 year old female with a PMHx of Invasive ductal CA of Breast (s/p mastectomy), Hypothyroidism, OA, GERD, who presented to the ER with cellulitis / pus drainage around the site of her chemo port. Patient had trailed oral antibiotics in January for a suspected cellulitis around the port. Port was ultimately removed on March 01, and a PICC line was placed on March 08. Patient reported that she noted swelling / warmth / redness around the site and came in for evaluation. She was admitted to the hospitalist service for evaluat ion and treatment. Patient was seen and examined at the bedside. Patient is anxious about getting her procedure completed today. She denies any chest pain, denies any worsening redness / swelling. Denies any palpitations, cough, N/V, abdominal pain, C/D or urinary discomfort. Objective: Vitals (See below) General: Lying in bed, appears comfortable, AAOx3 HEENT: NC, AT CVS: RRR, +S1S2 Chest: Redness regressed from demarkation lines, mild warmth, minimal tenderness Lungs: Fair air entry b/l, no appreciable wheezing / rhonchi / rales Abdomen: Soft, non-distended, non-tender Extremities: LE are without an edema, No calf tenderness Assessment and plan: Sepsis 2/2 left chest wall cellulitis - likely 2/2 prior infected port - Clinically improved - Afebrile / hemodynamically stable - s/p Leukocytosis - Blood cultures 03/31: no growth at 72 hours - c/w Vancomycin (Day #6); s/p Zosyn - Infectious disease and general surgery on consultation; plan for IR guided drainage today s/p Hypokalemia Normocytic Anemia - Hg remains stable - Will have outpatient follow up with Heme/Onc Breast Cancer - Invasive ductal CA of Breast (s/p mastectomy); +MI +ER HER/2 - Currently on chemotherapy - Will remain on hold pending clearance of infection - Outpatient follow up with Heme/Onc Hypothyroidism - c/w Levothyroxine Obesity - BMI of 33.6 - Complicating medical care GERD - c/w omeprazole DVT prophylaxis - c/w Lovenox Disposition: - Anticipate DC tomorrow VS,Fishbone, I+O VS, Fishbone, I+O Laboratory Tests 04/05/20 07:32 04/05/20 07:33 Vital Signs Date Time Temp Pulse Resp B/P (MAP) Pulse Ox O2 Delivery O2 Flow Rate FiO2 04/05/20 14:00 97.9 108 19 135/88 (104) 95 Room Air I&O- Last 24 Hours up to 6 AM 04/05/20 06:00 Intake Total 1635 ml Output Total 1600 ml Balance 35 ml GUCCI LONG MD Apr 05, 2020 16:15
[2020-04-05] MEDS ORDERED: ZYVO1TAB PO ×2 (16:49→16:51)
--- NOTE | 2020-04-05 16:55 | DS.PDOC ---
Discharge Summary General Date of Admission Mar 31, 2020 at 22:14 Date of Discharge 04/05/2020 Discharge Summary PROCEDURES PERFORMED DURING STAY: IR guided drainage of chest wall fluid collection on 04/05/2020 ADMITTING DIAGNOSES / DISCHARGE DIAGNOSES: Sepsis 2/2 left chest wall cellulitis - likely 2/2 prior infected port s/p Hypokalemia Normocytic Anemia Breast Cancer Hypothyroidism Obesity GERD DVT prophylaxis COMPLICATIONS/CHIEF COMPLAINT: Cellulitis Of Chest Wall. HISTORY OF PRESENT ILLNESS: Patient is a 69 year old female with a PMHx of Invasive ductal CA of Breast (s/p mastectomy), Hypothyroidism, OA, GERD, who presented to the ER with cellulitis / pus drainage around the site of her chemo port. Patient had trailed oral antibiotics in January for a suspected cellulitis around the port. Port was ultimately removed on March 01, and a PICC line was placed on March 08. Patient reported that she noted swelling / warmth / redness around the site and came in for evaluation. She was admitted to the hospitalist service for evaluation and treatment. HOSPITAL COURSE: Sepsis 2/2 left chest wall cellulitis - likely 2/2 prior infected port - Clinically improved - Afebrile / hemodynamically stable - s/p Leukocytosis - Blood cultures 03/31: no growth at 72 hours - s/p IR guided drainage with scant fluid removal; sent for culture - c/w Vancomycin (Day #6); s/p Zosyn - Infectious disease and general surgery on consultation; - Will have outpatient follow up with Dr. Wilson; will be discharge with Linezolid for 10 days s/p Hypokalemia Normocytic Anemia - Hg remains stable - Will have outpatient follow up with Heme/Onc Breast Cancer - Invasive ductal CA of Breast (s/p mastectomy); +IN +ER HER/2 - Currently on chemotherapy - Will remain on hold pending clearance of infection - Outpatient follow up with Heme/Onc Hypothyroidism - c/w Levothyroxine Obesity - BMI of 33.6 - Complicating medical care GERD - c/w omeprazole DVT prophylaxis - c/w Lovenox DISCHARGE MEDICATIONS: Please see below. ALLERGIES: Please see below. PHYSICAL EXAMINATION ON DISCHARGE: Vitals (See below) General: Lying in bed, appears comfortable, AAOx3 HEENT: NC, AT CVS: RRR, +S1S2 Chest: Redness regressed from demarkation lines, mild warmth, minimal tenderness Lungs: Fair air entry b/l, no appreciable wheezing / rhonchi / rales Abdomen: Soft, non-distended, non-tender Extremities: LE are without an edema, No calf tenderness LABORATORY DATA: Please see below. ACTIVITY: [As tolerated]. DISCHARGE PLAN: Follow up with PCP, Dr. Wilson and Oncology within 7 days Remain compliant with treatment plan and medications Return to the ER if you experience any problems DISPOSITION: Home DISCHARGE CONDITION: [Stable]. TIME SPENT ON DISCHARGE: 35 minutes. Vital Signs/I&Os Vital Signs Date Time Temp Pulse Resp B/P (MAP) Pulse Ox O2 Delivery O2 Flow Rate FiO2 04/05/20 14:00 97.9 108 19 135/88 (104) 95 Room Air I&O- Last 24 Hours up to 6 AM 04/05/20 05:59 Intake Total 1835 ml Output Total 2300 ml Balance -465 ml Laboratory Data Labs 24H Laboratory Tests 2 04/05/20 07:32: Anion Gap 3L, Glomerular Filtration Rate > 60.0, Calcium Level 8.3L, Magnesium Level 2.2 04/05/20 07:33: Nucleated Red Blood Cells % (auto) 0.0 04/05/20 13:56: Vancomycin Level Trough 17.0 CBC/BMP Laboratory Tests 04/05/20 07:32 04/05/20 07:33 Microbiology Microbiology 04/05/20 Gram Stain - Final, Resulted 04/05/20 Abscess Culture, Resulted Pending 04/05/20 Anaerobic Culture, Resulted Pending 04/05/20 Gram Stain - Final, Resulted 04/05/20 Abscess Culture, Resulted Pending 04/05/20 Anaerobic Culture, Received Pending 04/01/20 Stool Occult Blood (EVELIA) - Final, Complete 03/31/20 Blood Culture - Preliminary, Resulted No Growth after 72 hours. All specime... 03/31/20 Blood Culture - Preliminary, Resulted No Growth after 72 hours. All specime... Discharge Medications Scheduled Azelastine HCl (Azelastine HCl) 0.15% [email or web address], 2 SPRAY NARES DAILY, (Reported) Levothyroxine Sodium (Levothyroxine Sodium) 112 Mcg Tablet, 112 MCG PO DAILY, (Reported) Linezolid (Zyvox) 600 Mg Tablet, 1 TAB PO BID with food Omeprazole (Omeprazole) 40 Mg Cap, 40 MG PO DAILY, (Reported) PATIENT USES PRN Scheduled PRN Acetaminophen (Acetaminophen) 500 Mg Tablet, 1,000 MG PO DAILY PRN for PAIN / FEVER, (Reported) Diphenhydramine HCl (Benadryl) 25 Mg Capsule, 25 MG PO DAILY PRN for REDNESS/IR RITATION, (Reported) Diphenoxylate HCl/Atropine (Lomotil 2.5-0.025 mg Tablet) 1 Each Tablet, 2 TAB PO QID PRN for DIARRHEA, (Reported) Ondansetron HCl (Ondansetron HCl) 8 Mg Tablet, 8 MG PO Q6H PRN for NAUSEA OR VOMITING Allergies Coded Allergies: Sulfa (Sulfonamide Antibiotics) (Verified Allergy, Severe, anaphylaxis, 11/03/19) erythromycin base (Verified Adverse Reaction, Mild, Stomach cramps, 11/03/19) GUCCI LONG MD Apr 05, 2020 16:54
[2020-04-05] MEDS ORDERED: LINEZOLID 600MG TABLET (ZYVOX) PO SCH (18:00)
--- NOTE | 2020-04-07 07:38 | CR ---
DATE OF CONSULTATION: 04/04/2020 I was asked to see the patient for an infected Infusaport site. Patient's Infusaport was already removed, essentially had an Infusaport site that became infected and then it was removed after having a significant amount of drainage from the site. Once this was removed, she was on antibiotics for several weeks and then essentially was put on antibiotics for a urinary tract infection and then completed her antibiotics, then within a few days noticed significant erythema and swelling of the right chest wall near the Infusaport pocket site. Since she has had the Infusaport out, she has had minimal amount of drainage, but she has noticed some thickening along the area without fevers or chills. PAST MEDICAL AND SURGICAL HISTORY: Significant for history of invasive ductal carcinoma, ERPR positive; status post mastectomy, history of hypothyroidism, history of gastroesophageal reflux disease, history of osteoarthritis, history of tonsillectomy and history of carpal tunnel repair. Laboratories reveal that she came in with her white count elevated at 19,000 and had a normal white count today. It was still elevated yesterday and down to normal today at 8.7. She states the area does not cause any pain anymore and she is feeling better. She still has some erythema along the area, but that has also been better and once again has not had any drainage from the site per say. PHYSICAL EXAMINATION: Patient is a 69-year-old female, who looks her stated age. She is going through chemo and thus has some alopecia, but otherwise HEENT is unremarkable. Lungs are clear anteriorly. Heart is regular. Abdomen is soft, nontender. The right chest wall area reveals thickening right along where the Infusaport tunnel site is and right at the exit site where the Infusaport was removed. There is a little scab in the area and I did remove that scab, and I do not feel or see a pocket underneath this area. IMPRESSION/PLAN: At this point, an ultrasound had been performed and showed slivers of fluid near the clavicle. I anticipate this is probably edema and probably not purulent material, however, it is very reasonable to see what these aspirate out and show if these are bacteria. Then I would recommend that we proceed with a debridement of this area, however, right now to remove that entire area, would definitely delay her chemotherapy and it may take up to 4 to 6 weeks for that to heal by secondary intention. Thus, I would recommend seeing how things look in the morning and see what they get for aspiration, if they see any fluid tracks and I have discussed this with ultrasound along the Infusaport tunneled site to aspirate those areas or at least identify those areas so that if we needed to debride it, it may benefit her to have a smaller area that is debrided. In any case, the patient understands our current plan and we will see what the ultrasound tomorrow brings and we will see what her white count does. MTDD
--- NOTE | 2020-04-08 22:39 | CR ---
DATE OF CONSULTATION: 04/04/2020 REASON FOR CONSULTATION: Infusaport site infection. HISTORY OF PRESENT ILLNESS: Ms. Cherry is a pleasant 69-year-old female with a history of breast cancer, status post left mastectomy done by Dr. Blackmon with carbonator placement. The patient had an infusaport placed in November by Dr. Salamanca. Early January, the patient developed an infusaport infection and she developed redness and chest wall cellulitis. The patient was treated with oral Keflex for about one week followed by levofloxacin for 5 weeks under the care of Dr. Salamanca. The port was removed on 03/01/2020. Cultures were positive for methicillin-susceptible Staphylococcus aureus (MSSA) and Staphylococcus hominis. I saw the patient in mid February after she had the port removed and she had markedly improved. The patient finished levofloxacin on 03/22. She had chemotherapy on 03/20 after she had a hold on her chemotherapy for at least a month. She received docetaxel, carboplatin, trastuzumab and pertuzumab. This was her 4th cycle of chemotherapy and she is due to get next cycle before she starts radiation. The patient came to the hospital complaining of increasing mild pain in her arm with movement, worsening redness and pain in her chest wall at the site of the previous infusaport infection. There was no drainage from the site. Where the incision and drainage ()I&D) had been done had closed. She had no fever or chills, no nausea or vomiting. She has diarrhea, which she related to the antibiotic. PAST MEDICAL HISTORY: Significant for breast cancer, intraductal. Status post mastectomy and expanders on the left side on chemotherapy. Urinary tract infection seen at urgent care on 03/24, treated with Macrobid and Pyridium for one week, finished on 03/30. PHYSICAL EXAMINATION: Vital signs are stable, O2 saturation 100%. Heart normal S1, S2, no murmurs, rugs or gallops. Lungs are clear. No wheezes, rales or rhonchi. Abdomen: Obese, soft, nontender, no hepatosplenomegaly. There is no CVA or lumbosacral tenderness. Extremities: No clubbing, cyanosis or edema. Chest wall: Erythema with induration along the jugular vein, tender to touch. The infusaport site where the I&D was done is scabbed over and there is a 1 cm incision that is healing. No discharge could be obtained. There was tenderness, but no fluctuance along the chest wall site. She has a peripherally inserted central catheter (PICC) line in her right arm without any erythema or swelling. Left breast has an carbonator, well healed, no erythema and no tenderness. Right breast normal. LABORATORY: White count on admission was 19.1, today white count is 8.7, blood culture times two sets were done on 03/[address] 03/31 showed a PICC line on the right side in the superior vena cava. Left chest tissue carbonator, no evidence of injection. Lungs are clear. On 04/02, neck ultrasound showed no evidence of deep venous thrombosis (DVT) prophylaxis of the right upper extremity or neck veins. There was no mention of abscess. IMPRESSION: This is a pleasant female with a history of infusaport infection with culture positive for methicillin-susceptible Staphylococcus aureus (MSSA) and Staphylococcus hominis. The patient has had this port infection since at least early January. The infusaport was removed. She had 5 weeks of antibiotics orally after removal of the port and now presents with recurrent infection. Most likely, the patient had not a full drainage of the area. The port has been removed, but a PICC line was placed in the right arm and this does not look infected. PLAN: Continue with IV vancomycin 1 gm q 12 hours. Discontinue IV beta lactams. Ultrasound of the chest wall was obtained to rule out abscess. There were 2 small areas that were described around the pectoral muscle 3 to 5 cm in length with less than 5 mm in width. Suggest consultation with surgery to discuss whether the patient needs I&D. I do not think interventional radiology is the right answer to drain the small collection. I feel the patient needs a larger incision with packing of the wound to help with healing. The case has been discussed with Dr. Melissa Delacruz, who agrees with the plan. The case has been discussed with Dr. Fleix, who was consulted. Thank you for consultation. MIKO
--- NOTE | 2020-04-09 08:23 | IPN ---
DATE: 04/05/2020 Patient overnight has been doing well. She feels that the cellulitis/inflammation in the area of her Infusaport is a little bit better today than it was yesterday and her white count is still normal this morning. She has been afebrile. On exam, she still has the thickened area along the Infusaport pocket site, still not appreciating any abscess or fluid collection, however after a long discussion, I will see what the ultrasound shows and then depending on that determine our next step whether excision of this track is warranted or if it may actually be better for her if we continue her with some antibiotics and then if we feel that this area has been sterilized to some extent consider plastics to remove, excise and then close this area at that time. Once again, will see what the ultrasound shows today to determine our next course of action. MIKO
--- NOTE | 2020-05-01 07:48 | REP ---
ULTRASOUND GUIDED ABCESS DRAIN: 04/05/20 The procedure was performed under the direction supervision of Dr. Geronimo. The patient has a history of fluid collections at the supraclavicular region seen on a previous ultrasound performed on 04/04/20. Preliminary stenography dated today demonstrates this fluid collection in the supraclavicular region as well as a small collection just inferior. The risks and the benefits of the procedure were explained to the patient and informed consent was obtained. The fluid collections were localized using ultrasound guidance. The skin was prepped and draped in a sterile fashion. 1% Lidocaine was used as a local anesthetic. The more superior collection was addressed first. Using ultrasound guidance, an 18 gauge needle was inserted into the collection. A few drops of red colored aspirate was withdrawn and sent to the lab for analysis. The more inferior collection was then addressed. Again, using ultrasound guidance, an 18 gauge needle was inserted and a few drops of red colored aspirate was withdrawn and sent to the lab for analysis. The patient tolerated the procedure well. There were no immediate complications. After the appropriate amount of monitored convalescence, the patient was discharged from the department. MIOK
[2020-05-03] MEDS ORDERED: LOMO2.5T PO ×2 (13:03→16:15)
== END 2020-04-05 18:15 | disposition home or self-care (01) | DRG 314 ==
LOC: M ED 16:42 → M ED INP 22:14 → ENRESERV 04-01 00:17 → M ICU 04-01 02:15 → M MS5PR 04-02 13:18
PROVIDERS: ADMIT Internal Medicine; ATTEND Internal Medicine
PROC: 0W983ZX Drainage of Chest Wall, Percutaneous Approach, Diagnostic (ICD-10-PCS; principal; 2020-04-05 12:00)
DX: T82.7XXA Infection and inflammatory reaction due to other cardiac and vascular devices, implants and grafts, initial encounter (principal); A41.9 Sepsis, unspecified organism; L03.313 Cellulitis of chest wall; E87.6 Hypokalemia; E03.9 Hypothyroidism, unspecified; L64.0 Drug-induced androgenic alopecia; K21.9 Gastro-esophageal reflux disease without esophagitis; M19.90 Unspecified osteoarthritis, unspecified site; T45.1X5A Adverse effect of antineoplastic and immunosuppressive drugs, initial encounter; Z88.1 Allergy status to other antibiotic agents; Z88.2 Allergy status to sulfonamides; C50.912 Malignant neoplasm of unspecified site of left female breast; D64.9 Anemia, unspecified; E66.9 Obesity, unspecified; Z68.33 Body mass index [BMI] 33.0-33.9, adult; Z90.12 Acquired absence of left breast and nipple; Y83.1 Surgical operation with implant of artificial internal device as the cause of abnormal reaction of the patient, or of later complication, without mention of misadventure at the time of the procedure; Z79.899 Other long term (current) drug therapy

== ENCOUNTER → 2020-05-03 | Outpatient (REF) | payer OTHER ==
[~2020-05-03] MED LIST changes: +BENA25CA4 PO; +ZYVO1TAB PO
[2020-05-03 12:22] LABS: THYROID STIMULATING HORMONE 1.5 uIU/ML (0.358-3.740)
== END ==
LOC: M LAB REF 11:30
PROVIDERS: ATTEND Internal Medicine
DX: E03.9 Hypothyroidism, unspecified (principal); E83.51 Hypocalcemia

== ENCOUNTER 2020-05-15 14:14 | Outpatient (RCR) | payer OTHER ==
[2020-05-26] MEDS ORDERED: KEFL500C17 PO (13:17)
[2020-05-26] MEDS ORDERED: HYDR-4571 (14:03)
[2020-05-26] MEDS ORDERED: PROC10TA4 (14:03)
[2020-05-26] MEDS ORDERED: [UNRECOGNIZED DRUG - CODE] IV (14:23)
[2020-05-26] MEDS ORDERED: FERR1TAB8 PO (17:02)
== END 2020-05-27 ==
LOC: M ONCR 14:14
PROVIDERS: ATTEND General Practice
DX: C50.112 Malignant neoplasm of central portion of left female breast (principal)

== ENCOUNTER → 2020-05-16 | Outpatient (REF) | payer OTHER ==
[~2020-05-16] MED LIST changes: +FERR1TAB8 PO; +HYDR-4571; +KEFL500C17 PO; +LINE1TAB6 PO; +PERC10TA26 PO; +PROC10TA4; +[UNRECOGNIZED DRUG - CODE] IV
[2020-05-16 16:00] LABS: BASO % 0.4 % (0.0-1.0); EOS % 0.2 % (0.0-3.0); HEMOGLOBIN 9.5 g/dl (12.0-15.5); LYMPH # 2.2 10^3/uL (1.5-5.0); LYMPH % 19.6 % (24.0-44.0); MEAN CORPUSCULAR HEMOGLOBIN 30.8 pg (27.0-33.0); MEAN CORPUSCULAR HGB CONC 31.7 g/dl (32.0-36.5); MEAN CORPUSCULAR VOLUME 97.4 fl (80.0-96.0); MONO # 0.7 10^3/uL (0.0-0.8); MONO % 6.5 % (0.0-5.0); NEUTROPHILS # 8.2 10^3/uL (1.5-8.5); NEUTROPHILS % 72.7 % (36.0-66.0); PLATELET COUNT, AUTOMATED 205 10^3/uL (150-450); RED BLOOD COUNT 3.08 10^6/uL (4.00-5.40); WHITE BLOOD COUNT 11.2 10^3/uL (4.0-10.0)
[2020-05-16 16:35] LABS: ERYTHROCYTE SEDIMENTATION RATE 36 mm/hr (0-30)
== END ==
LOC: M SFHCPLAZ 13:11
PROVIDERS: ATTEND Internal Medicine Infectious Disease
DX: L03.313 Cellulitis of chest wall (principal)

== ENCOUNTER → 2020-05-26 | Outpatient (CLI) | payer OTHER | LOC: M LABSMTC 11:53 | PROVIDERS: ATTEND Anesthesiology | DX: Z01.812 Encounter for preprocedural laboratory examination (principal); Z20.828 Contact with and (suspected) exposure to other viral communicable diseases | CPT/HCPCS: C9803; U0003 ==

== ENCOUNTER → 2020-05-29 | Outpatient (CLI) | payer OTHER ==
--- NOTE | 2020-05-30 13:46 | ECHO ---
DATE OF PROCEDURE: 05/29/2020 Age: 69 Gender: Female Height: 162 cm Weight: 90 kg REFERRING PHYSICIAN: Symone Rosado MD INDICATION: Chemotherapy. MEASUREMENTS: IVS 0.8 LV 4.6 LVPW 0.9 LA 3.8 Mitral E wave velocity 84, A wave 76 E prime septal 12.3 E prime lateral 14.7 IVC 2.3 Left atrium volume index 27 FINDINGS: The study is of acceptable technical quality. The patient is in sinus rhythm. Normal LV size with hyperdynamic LV systolic function, estimated left ventricular ejection fraction (LVEF) 65-70%. No segmental wall motion abnormalities are appreciated. Right ventricle is also normal size and systolic function. Both atria appear normal. Aortic valve is tricuspid. It was poorly visualized but grossly appears normal. Mitral valve was also relatively poorly seen. On some views it appeared that there might be a small echo artifact attached to anterior mitral leaflet possibly representing small cord or vegetation in appropriate clinical setting. Mobility is preserved. Tricuspid valve is normal. Pulmonic valve was not well seen. No pericardial effusion is noted. Inferior vena cava is dilated and collapses with inspiration indicative of likely mildly elevated central venous pressure (CVP). Aortic root and aortic arch and visualized segment of abdominal aorta all appeared normal. Doppler interrogation reveals competent aortic valve. There is trace mitral insufficiency and no significant tricuspid insufficiency. Mitral inflow pattern and tissue Doppler imaging of mitral annulus revealed normal diastolic dysfunction. Global longitudinal strain is negative 21% which represents normal values. CONCLUSIONS: 1. Study is of acceptable technical quality, the patient is in sinus rhythm. 2. Normal LV size, systolic and diastolic function. 3. No hemodynamically significant valvular disease. 4. Cannot completely rule out presence of small echodensity on anterior mitral leaflet, possibly representing small vegetation. 5. Likely elevated central venous pressure. 6. Unable to estimate pulmonary artery pressure. 7. Normal global longitudinal strain (negative 21%). COMMENTS: If clinical presentation is supportive with diagnosis of endocarditis, further evaluation should be pursued. MTDD
== END ==
LOC: M CARPUL 10:33
PROVIDERS: ATTEND Internal Medicine Medical Oncology
DX: C50.912 Malignant neoplasm of unspecified site of left female breast (principal)

== ENCOUNTER 2020-05-31 10:51 | Day surgery (SDC) | payer OTHER ==
[~2020-05-31] VITALS: Ht 162.6 cm; Wt 89.4 kg
[~2020-05-31 10:51] MED LIST changes: +LIDOCAINE 2% 100MG/5ML SDV (FOR ANES.) As Ordered ONE; -LINE1TAB6 PO; +LR 1,000 ML IV ONE; +MIDAZOLAM INJ 2MG/2ML VIAL (J2250 PER 1MG) As Ordered ONE; -PERC10TA26 PO; +ceFAZolin SOD 2 GM in IV 1 EA IV ONE; +fentaNYL 100 MCG/2 ML INJECTION (J3010) As Ordered ONE; +propofoL 200 MG/20 ML VIAL As Ordered ONE
[2020-05-31] MEDS ORDERED: LINE1TAB6 PO (11:16)
[2020-05-31] MEDS ORDERED: SCOPOLAMINE 1MG TRANSDERMAL PATCH TOP ONE (11:45)
[2020-05-31] MEDS ORDERED: SODIUM CHLORIDE 0.9% INJ 10 ML SYR IV PRN (12:15)
[2020-05-31] MEDS ORDERED: HYDROmorphone HCL 2 MG/ML 1ML VIAL (J1170) As Ordered ONE (12:33)
[2020-05-31] MEDS ORDERED: dexameTHASONE 4 MG/ML 1ML VIAL (J1100 PER 1MG) As Ordered ONE (12:34)
[2020-05-31] MEDS ORDERED: HEPARIN SOD (PORCINE) 5000UNITS/ML 1ML VIAL/SYRINGE As Ordered ONE (12:38)
[2020-05-31] MEDS ORDERED: ONDANSETRON 4MG/2ML VIAL As Ordered ONE (12:45)
[2020-05-31] MEDS ORDERED: METOCLOPRAMIDE INJ 10MG/2ML VIAL (J2765 PER 1) As Ordered ONE (12:45)
[2020-05-31] MEDS ORDERED: ePHEDrine SULFATE 25 MG/5 ML(5MG/ML) SYRINGE As Ordered ONE (12:56)
[2020-05-31] MEDS ORDERED: ACETAMINOPHEN 1000MG 100ML IV BTL (OFIRMEV) (J0131 PER 10MG) As Ordered ONE (13:14)
[2020-05-31] MEDS ORDERED: VANCOMYCIN 500MG/10ML VIAL As Ordered ONE ×2 (13:20→13:23)
--- NOTE | 2020-05-31 14:04 | POST-OPPD ---
Postoperative Procedure Note Date Of Procedure: May 31, 2020 PREOPERATIVE DIAGNOSIS: Right chest infected scar POSTOPERATIVE DIAGNOSIS: same FINDINGS: thick port tract PROCEDURE: Excision of port track scar right chest SURGEON: Dr Margaux Tellez ANESTHESIA: General SPECIMENS: Right chest scar tissue. Right chest cultures. ESTIMATED BLOOD LOSS: 25cc REPLACED: none DRAINS: none COMPLICATIONS: none POSTOPERATIVE CONDITION: stable Dict [id number] ESTHER GANNON DO May 31, 2020 14:04
[2020-05-31] MEDS ORDERED: PERC10TA26 PO (14:14)
[2020-05-31] MEDS ORDERED: LR 1,000 ML IV SCH (14:30)
[2020-05-31] MEDS ORDERED: fentaNYL 100 MCG/2 ML INJECTION (J3010) IV PRN (14:30)
[2020-05-31] MEDS ORDERED: METOCLOPRAMIDE INJ 10MG/2ML VIAL (J2765 PER 1) IV PRN (14:30)
[2020-05-31] MEDS ORDERED: MEPERIDINE INJ 25 MG/ML VIAL (J2175) IV PRN (14:30)
[2020-05-31] MEDS ORDERED: oxyCODONE 5MG TAB PO PRN (14:30)
[2020-05-31] MEDS ORDERED: ONDANSETRON 4MG/2ML VIAL IV PRN (14:30)
[2020-05-31 16:07] VITALS: BP 159/78
[2020-05-31] MEDS ORDERED: SODIUM CHLORIDE 0.9% INJ 10 ML SYR IV SCH (18:00)
--- NOTE | 2020-06-01 07:29 | ROES ---
DATE OF OPERATION: 05/31/2020 PREOPERATIVE DIAGNOSIS: Right chest infected scar. POSTOPERATIVE DIAGNOSIS: Right chest infected scar. FINDINGS: Thick port tract scar. PROCEDURE: Excision of port tract scar, right chest. ATTENDING PHYSICIAN: Dr. Sidra Blackmon and Dr. Guillen. ANESTHESIA: General. SPECIMEN: Right chest scar tissue. Also right chest cultures. BLOOD LESS: 25 Ml. REPLACEMENT: None. DRAINS: None. COMPLICATIONS: None. PROCEDURE DESCRIPTION: This is a 69-year-old female who had a port placed on the right side. Port had several routes of infection. On exam she had palpable tract from the port, which had an indented scar where the port itself tract was extending up the internal jugular (IJ) vein. Patient is scheduled to have it completely excised and the scar revised. Risks, benefits, and alternatives were discussed with the patient in detail, and she is ready to proceed. Dr. Guillen is involved in this case due to the proximity to the internal jugular vein to assist with the dissection on the scar along the neck portion of the procedure. After informed consent was obtained, patient was brought into the operating room and placed in the supine position. Preoperative antibiotics were given. Sequential stockings placed on the lower calves. General anesthesia was induced. She was prepped and draped in the usual sterile fashion. We started our incision by re-examining the area again. The tract was palpable. We made superior incision starting at the base of the neck, extending down about 4 cm, and careful dissection was done to identify the tract. It was entered. Cultures were taken, aerobic and anaerobic, and then the probe was introduced through the tract toward the inferior portion. Then Dr. Guillen made an incision on the lower portion where the port placement was, and then we started our dissection under direct vision from the superior opening and from the inferior up. The tract was completely excised. Hemostasis was obtained. Then Dr. Guillen excised the scar, which was adjacent to the inferior jugular vein, which was not entered. Everything was completely excised and sent to pathology. Then I trimmed the skin edges, and the wounds were irrigated with vancomycin 1 gram in 500 mL of saline irrigation. Hemostasis was checked again. The flaps were closed with interrupted 3-0 Monocryl and 4-0 Monocryl sutures. The scar of the port was revised also and closed in layers with interrupted 3-0 Monocryl sutures and 4-0 Monocryl sutures as well. A Prineo dressing was applied and bolster dressing. Patient was extubated in the operating room without any difficulty and transferred to the recovery room in stable condition. MIKO
--- NOTE | 2020-06-01 11:05 | ROOPDOC ---
[facility] Report Of Operation Report of Operation DATE OF PROCEDURE: 05/31/20 PREPROCEDURE DIAGNOSES: Persistent infection right neck and chest status post port removal POSTPROCEDURE DIAGNOSES: Same PROCEDURE: Excision of port catheter scar tissue and tract right neck and chest PRIMARY SURGEON: Ailyn Blackmon MD CO-SURGEON: Falguni Guillen M.D. ANESTHESIA: LMA anesthesia INDICATION FOR PROCEDURE: This is a very pleasant 69-year-old patient who had a right port placement by another provider for use for chemotherapy for breast cancer, subsequently developed a fairly prolific infection requiring port removal and debridements, who has had multiple rounds of IV antibiotics and still has persistent erythema and duration and infection of the right port tract and scar tissue despite removal of the port. I have been asked to assist Dr Blackmon with excision of the scar tissue in case it tracks back to the jugular vein, which would possibly require resection of a small portion of the jugular vein and primary repair. Risks benefits and alternatives were explained to the patient and she was agreeable to proceed. Informed consent was obtained. REPORT OF OPERATION: This procedure will be formally dictated by Dr. Blackmon. I was present for the entire procedure, and assisted her with the scar tissue resection, revision of the skin scar, and closure. The patient did not require procedural intervention on her right jugular vein, as the tract and scar tissue did not extend all the way to the vein. We were able to excise the entire tract and scar tissue back to healthy tissue without encountering the jugular vein. Appropriate intraoperative cultures were sent, the scar tissue was sent for pathology, the excised skin from the scar revision was also sent for pathology. No additional vascular intervention was required and the patient did very well with the procedure. We appreciate the opportunity to participate in the care of this patient. FALGUNI GUILLEN MD Jun 01, 2020 11:05
== END 2020-05-31 16:07 | disposition home or self-care (01) ==
LOC: M SDC 10:51
PROVIDERS: ATTEND Plastic Surgery Surgery of the Hand
DX: L90.5 Scar conditions and fibrosis of skin (principal); Z85.3 Personal history of malignant neoplasm of breast; Z92.21 Personal history of antineoplastic chemotherapy; K21.9 Gastro-esophageal reflux disease without esophagitis; M81.0 Age-related osteoporosis without current pathological fracture; G47.30 Sleep apnea, unspecified; E03.9 Hypothyroidism, unspecified; Z88.1 Allergy status to other antibiotic agents; Z88.2 Allergy status to sulfonamides; Z79.899 Other long term (current) drug therapy
CPT/HCPCS: 13101; 36415; 84132; 87070; 87075; 87205; 88304; J0131; J0690; J1100; J1170; J2250; J2405; J2765; J3010; J3370

== ENCOUNTER → 2020-06-26 | Outpatient (RCR) | payer OTHER ==
[~2020-06-26] MED LIST changes: -HYDR-4571; +HYDR-4571 PO; -LIDOCAINE 2% 100MG/5ML SDV (FOR ANES.) As Ordered ONE; +LINE1TAB6 PO; -LR 1,000 ML IV ONE; -MIDAZOLAM INJ 2MG/2ML VIAL (J2250 PER 1MG) As Ordered ONE; +PERC10TA26 PO; -ceFAZolin SOD 2 GM in IV 1 EA IV ONE; -fentaNYL 100 MCG/2 ML INJECTION (J3010) As Ordered ONE; -propofoL 200 MG/20 ML VIAL As Ordered ONE
== END ==
LOC: M ONCR 06-07 08:26
PROVIDERS: ATTEND General Practice
DX: C50.112 Malignant neoplasm of central portion of left female breast (principal)

== ENCOUNTER → 2020-07-11 | Outpatient (CLI) | payer OTHER ==
[~2020-07-11] MED LIST changes: +LETR2.5T2 PO; +LIDO5CRE6 TOP; +OXYC-517 PO; +POTA8CAP10 PO
--- NOTE | 2020-07-11 14:15 | DEXAMM ---
INDICATION: BREAST CA,OSTEOPENIA,ON AI. COMPARISON: Comparison studies are dated December 05, 2017 and June 14, 2015.. TECHNIQUE: Bone density was measured using dual-energy x-ray absorptionmetry (DEXA). FINDINGS: AP SPINE L1-L4 BMD 1.085 g/cm2 Young Adult T-Score -0.9 Age Matched Z-Score 0.7. LT FEMUR, TOTAL BMD 0.940 g/cm2 Young Adult T-Score -0.5 Age Matched Z-Score 0.8. LT NECK BMD 0.845 g/cm2 Young Adult T-Score -1.4 Age Matched Z-Score 0.2. RT FEMUR, TOTAL BMD 0.861 g/cm2 Young Adult T-Score -1.2 Age Matched Z-Score 0.2. RT NECK BMD 0.817 g/cm2 Young Adult T-Score -1.6 Age Matched Z-Score 0.0. IMPRESSION: There is normal bone density of the spine. There is low bone density of the left hip. There is low bone density of the right hip. The density of the spine has increased 3.9% since the initial exam on June 14, 2015. The density of the spine decrease 0.8% since most recent exam on December 05, 2017. The density of the left hip has decreased 4.0% since initial exam on June 14, 2015. The density of the left hip has decreased 4.1% since most recent exam on December 05, 2017. The density of the right hip has decreased 9.7% since the initial exam on June 14, 2015. The density of the right hip has decreased 14.7% since the most recent exam on December 05, 2017. FOLLOW-UP: Recommendation for the next bone density exam: 2 years. <Electronically signed by Duglas Harris > 07/11/20 [id number]
== END ==
LOC: M WHC 11:06
PROVIDERS: ATTEND Internal Medicine Medical Oncology
DX: M85.851 Other specified disorders of bone density and structure, right thigh (principal); M85.852 Other specified disorders of bone density and structure, left thigh; C50.919 Malignant neoplasm of unspecified site of unspecified female breast; Z79.899 Other long term (current) drug therapy

== ENCOUNTER 2020-07-18 08:04 | Outpatient (RCR) | payer OTHER ==
[2020-07-26] MEDS ORDERED: CIPR-249 PO (08:42)
[2020-07-26] MEDS ORDERED: LIDO5CRE6 TOP (14:22)
[2020-08-17] MEDS ORDERED: CEPH500C PO (09:25)
== END 2020-07-27 ==
LOC: M ONCR 08:04
PROVIDERS: ATTEND General Practice
DX: C50.112 Malignant neoplasm of central portion of left female breast (principal)

== ENCOUNTER → 2020-07-26 | Outpatient (CLI) | payer OTHER ==
--- NOTE | 2020-07-26 14:21 | RADENCPD ---
Date/Time of Encounter Date of Encounter: Jul 26, 2020 Time of Encounter: 14:18 Encounter Stacey came in for a skin check today. She feels well. Less pain and peeling. Lidocaine has been sufficient in recent days. She has not needed the oxycodone. On exam there is CTCAE grade 1 erythema and dry desquamation over the left chest and underarm. No further moist peeling. Minimal folliculitis. Assessment: Resolving radiation dermatitis. Plan: Continue emollients daily and lidocaine PRN. No need to dress the skin as there is no more moist peeling. Follow up with me in 6 months time. VICTORIANO CHATMAN MD Jul 26, 2020 14:21
== END ==
LOC: M ONCR 13:12
PROVIDERS: ATTEND General Practice
DX: C50.112 Malignant neoplasm of central portion of left female breast (principal)

== ENCOUNTER 2020-08-04 11:02 | Emergency (ER) | payer OTHER ==
[~2020-08-04] VITALS: Ht 162.6 cm; Wt 82.5 kg
[2020-08-04 11:04] VITALS: BP 131/87
[2020-08-04] MEDS ORDERED: HYDR-3363 PO (11:58)
[2020-08-04] MEDS ORDERED: PEPC40TA12 PO (11:58)
[2020-08-04] MEDS ORDERED: hydrOXYzine 25 MG TAB PO ONE (12:00)
[2020-08-04] MEDS ORDERED: FAMOTIDINE 20 MG TAB PO ONE (12:00)
== END 2020-08-04 12:24 | disposition home or self-care (01) ==
LOC: M ED 11:02
DX: L23.9 Allergic contact dermatitis, unspecified cause (principal); C50.012 Malignant neoplasm of nipple and areola, left female breast; E03.9 Hypothyroidism, unspecified; G47.33 Obstructive sleep apnea (adult) (pediatric); K21.9 Gastro-esophageal reflux disease without esophagitis; Z90.12 Acquired absence of left breast and nipple; Z88.2 Allergy status to sulfonamides; Z88.1 Allergy status to other antibiotic agents; Z79.899 Other long term (current) drug therapy

== ENCOUNTER → 2020-08-08 | Outpatient (CLI) | payer SELFPAY ==
[~2020-08-08] MED LIST changes: +PEPC40TA12 PO
== END ==
LOC: M LABSMTC 11:28
PROVIDERS: ATTEND Pediatrics
DX: Z20.822 Contact with and (suspected) exposure to COVID-19 (principal)

== ENCOUNTER → 2020-08-28 | Outpatient (CLI) | payer OTHER ==
--- NOTE | 2020-08-30 11:17 | ECHO ---
DATE OF PROCEDURE: 08/28/2020 Age: 69 Gender: Female Height: 162 cm Weight: 82 kg REFERRING PHYSICIAN: Symone Rosado M.D. INDICATION: Chemotherapy drugs that may affect the heart. MEASUREMENTS: 2D Measurements: Left ventricle diastole 4.7 cm Intraventricular septum 1.06 cm Posterior wall 0.94 cm Left atrium 3.2 cm Left atrial volume index 23 cm Inferior vena cava 1.6 cm Doppler Measurements: No aortic stenosis No aortic regurgitation Aortic valve velocity 158 cm/s LVOT velocity 107 cm/s LVOT VTI 24.7 cm Very mild mitral regurgitation No mitral stenosis Mitral E velocity 85.7 cm/s Mitral A velocity 78.0 cm/s Trace tricuspid regurgitation No pulmonic regurgitation Pulmonary artery acceleration time 121 msec suggestive of normal PA systolic pressure. MITRAL ANNULAR TISSUE DOPPLER E prime septal 11.8 cm/s, E prime lateral 10.8 cm/s DESCRIPTION: Rhythm was sinus. This was a moderately technically difficult echocardiogram. This was a 2D, M-mode, color flow Doppler, and pulsed wave Doppler examination including mitral annular tissue Doppler. CONCLUSIONS: 1. Normal left ventricular internal dimensions and wall thickness. Normal regional LV wall motion and wall thickening. Normal LV systolic function. LVEF of 65% by visual estimate. Normal LV diastolic function. Normal peak systolic longitudinal strain pattern. 2. Normal right ventricle size and systolic function. Suggestive of normal pulmonary artery systolic pressure. 3. Mild focal thickening and focal calcific deposits involving the tip of the anterior mitral leaflet due to septal contact lesion. Very mild mitral regurgitation. 4. No pericardial effusion. 5. Moderately technically difficult echocardiogram. MTDD
== END ==
LOC: M CARPUL 10:20
PROVIDERS: ATTEND Internal Medicine Medical Oncology
DX: C50.919 Malignant neoplasm of unspecified site of unspecified female breast (principal); Z79.899 Other long term (current) drug therapy

== ENCOUNTER → 2020-09-22 | Outpatient (CLI) | payer OTHER ==
--- NOTE | 2020-09-22 10:51 | REPMRS ---
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 Family history of breast cancer at age 32 in sister, breast cancer in maternal aunt. Mastectomy of the left breast, November 17, 2019. High risk US guided breast biopsy. of the left breast, September 29, 2019. Benign core biopsy of the left breast. Diagnostic Unilateral Mammo: Right Breast - September 22, 2020 - Exam #: [id number] CC and MLO view(s) were taken of the right breast. Technologist: RT Cindy Prior study comparison: October 21, 2019, left breast digital mammo diagnostic unilateral, performed at [facility]. September 29, 2019, left breast diagnostic unilateral mammo performed at [facility]. July 14, 2019, bilateral digital mammo screening bilat, performed at [facility]. FINDINGS: There are scattered fibroglandular densities. There has been no change in the appearance of the right breast parenchyma in the interval since the prior examination. No mass, architectural distortion, or microcalcific grouping has developed. No suspicious finding. Volpara breast density pattern B. 3-D tomosynthesis shows no additional findings. Assessment: BI-RADS/ACR category 2 mammogram. Benign Findings. Recommendation Routine screening mammogram of the right breast in 1 year. This mammogram was interpreted with the aid of an FDA-approved computer-aided dectection system. Electronically Signed By: Duglas Harris MD 09/22/20 [id number]
== END ==
LOC: M WHC 08:02
PROVIDERS: ATTEND Surgery
DX: C50.912 Malignant neoplasm of unspecified site of left female breast (principal)
CPT/HCPCS: 77065; G0279

== ENCOUNTER → 2020-11-27 | Outpatient (CLI) | payer OTHER | LOC: M RAD 11:45 | PROVIDERS: ATTEND Internal Medicine | DX: Z01.818 Encounter for other preprocedural examination (principal) ==

== ENCOUNTER → 2020-11-27 | Outpatient (CLI) | payer OTHER ==
--- NOTE | 2020-11-27 21:16 | REP ---
INDICATION: PRE-OP COMPARISON: 11/01/2019 TECHNIQUE: PA and lateral. FINDINGS: The mediastinum and cardiac silhouette are normal. The lung verma are clear and without acute consolidation, effusion, or pneumothorax. The skeletal structures are intact and normal. Right-sided PICC line with tip in the SVC. Right breast reconstruction. IMPRESSION: No acute cardiopulmonary process. <Electronically signed by Kang Tse > 11/27/20 [id number]
== END ==
LOC: M CARPUL 11:48
PROVIDERS: ATTEND Internal Medicine Medical Oncology
DX: C50.912 Malignant neoplasm of unspecified site of left female breast (principal)

== ENCOUNTER → 2020-12-02 | Outpatient (CLI) | payer OTHER | LOC: M LABSMTC 10:59 | PROVIDERS: ATTEND Anesthesiology | DX: Z01.812 Encounter for preprocedural laboratory examination (principal); Z20.822 Contact with and (suspected) exposure to COVID-19 ==

== ENCOUNTER 2020-12-07 10:03 | Observation (INO) | payer OTHER ==
[~2020-12-07] VITALS: Ht 162.6 cm; Wt 83.9 kg
[~2020-12-07 10:03] MED LIST changes: +LIDO1CRE42; -LIDO2.5C15; +LIDOCAINE 1% MDV 20ML VIAL SQ PRN; +LR 1,000 ML IV ONE; +ceFAZolin SOD 1 GM in D5W MINI-BAG PLUS 50 ML IV ONE
[2020-12-07] MEDS ORDERED: propofoL 200 MG/20 ML VIAL As Ordered ONE (10:29)
[2020-12-07] MEDS ORDERED: fentaNYL 250 MCG/5 ML INJECTION (J3010) As Ordered ONE (10:29)
[2020-12-07] MEDS ORDERED: LIDOCAINE 2% 100MG/5ML SDV (FOR ANES.) As Ordered ONE (10:29)
[2020-12-07] MEDS ORDERED: ROCURONIUM BROMIDE 50 MG/5 ML VIAL As Ordered ONE ×2 (10:29→13:24)
[2020-12-07] MEDS ORDERED: MIDAZOLAM INJ 2MG/2ML VIAL (J2250 PER 1MG) As Ordered ONE (10:30)
[2020-12-07] MEDS ORDERED: SODIUM CHLORIDE 0.9% INJ 10 ML SYR IV ONE (11:05)
[2020-12-07] MEDS ORDERED: SODIUM CHLORIDE 0.9% INJ 10 ML SYR IV PRN (11:40)
[2020-12-07] MEDS ORDERED: SCOPOLAMINE 1MG TRANSDERMAL PATCH TOP ONE (11:50)
[2020-12-07] MEDS ORDERED: BACITRACIN PWD 50,000 UNITS VIAL As Ordered ONE (12:12)
[2020-12-07] MEDS ORDERED: BUPIVACAINE LIPOSOME/PF 1.3% 20ML VIAL (13.3MG/ML)(EXPAREL)(C9290 PER1MG) As Ordered ONE (12:12)
[2020-12-07] MEDS ORDERED: dexameTHASONE 4 MG/ML 1ML VIAL (J1100 PER 1MG) As Ordered ONE (13:04)
[2020-12-07] MEDS ORDERED: PHENYLephrine 500MCG 5ML (100MCG/ML) SYRINGE As Ordered ONE ×2 (13:05→13:48)
[2020-12-07] MEDS ORDERED: HYDROmorphone HCL 2 MG/ML 1ML VIAL (J1170) As Ordered ONE (13:22)
[2020-12-07] MEDS ORDERED: ONDANSETRON 4MG/2ML VIAL As Ordered ONE (13:23)
[2020-12-07] MEDS ORDERED: METOCLOPRAMIDE INJ 10MG/2ML VIAL (J2765 PER 1) As Ordered ONE (13:23)
[2020-12-07] MEDS ORDERED: ACETAMINOPHEN 1000MG 100ML IV BTL (OFIRMEV) (J0131 PER 10MG) As Ordered ONE (13:25)
[2020-12-07] MEDS ORDERED: HYDROMORPHONE HCL 0.5 MG/ 0.5 ML SYRINGE (J1170 PER 1) IV PRN (15:50)
[2020-12-07] MEDS ORDERED: LR 1,000 ML IV SCH (15:50)
[2020-12-07] MEDS ORDERED: fentaNYL 100 MCG/2 ML INJECTION (J3010) IV PRN (15:50)
[2020-12-07] MEDS ORDERED: oxyCODONE 5MG TAB PO PRN (15:50)
[2020-12-07] MEDS ORDERED: METOCLOPRAMIDE INJ 10MG/2ML VIAL (J2765 PER 1) IV PRN (15:50)
[2020-12-07] MEDS ORDERED: ONDANSETRON 4MG/2ML VIAL IV PRN ×2 (15:50→15:55)
--- NOTE | 2020-12-07 15:53 | POST-OPPD ---
Postoperative Procedure Note Date Of Procedure: December 07, 2020 PREOPERATIVE DIAGNOSIS: left breast cancer. Acquired deformity left breast. Right breast asymmetry. POSTOPERATIVE DIAGNOSIS: same FINDINGS: Right breast ptosis grade 3. Control Tower Operator reconstruction left breast. PROCEDURE: Left breast exchange of piano bench assembler to permanent implant, open capsulotomy. Right breast reduction for symmetry. SURGEON: Dr Gannon ANESTHESIA: General SPECIMENS: Left breast piano bench assembler. Right breast tissue 157 gm ESTIMATED BLOOD LOSS: 50cc REPLACED: none DRAINS: 10 mm JESSICA Right side COMPLICATIONS: none POSTOPERATIVE CONDITION: stable ESTHER GANNON DO December 07, 2020 15:53
--- NOTE | 2020-12-07 15:53 | ROOPDOC ---
[facility] Report Of Operation Report of Operation DATE OF PROCEDURE: 12/07/20 PREOPERATIVE DIAGNOSIS: left breast cancer. Acquired deformity left breast. Right breast asymmetry. POSTOPERATIVE DIAGNOSIS: same FINDINGS: Right breast ptosis grade 3. Wheelchair Van Operator First Responder reconstruction left breast. PROCEDURE: Left breast exchange of foster winder to permanent implant, open capsulotomy. Right breast reduction for symmetry. SURGEON: Dr Gannon ANESTHESIA: General SPECIMENS: Left breast foster winder. Right breast tissue 157 gm ESTIMATED BLOOD LOSS: 50cc REPLACED: none DRAINS: 10 mm JESSICA Right side COMPLICATIONS: none POSTOPERATIVE CONDITION: stable Procedure: This is a 70 year-old female status post left mastectomy with immediate reconstruction with tissue foster winder. She has fully expanded to 550 [address] in [address]. Patient is ready for second stage of procedure for r econstruction today with planned exchange of expanders to permanent implants with open capsulotomy as well as right breast reduction for symmetry.. Risk, benefits and alternatives of the procedure discussed with the patient in detail and she is ready to proceed. The day of surgery. Informed consent was confirmed and then patient was brought into the operating room, placed in supine position. General anesthesia was induced. She was given preoperative antibiotics, heparin and sequential stockings were placed in the lower calves. She is prepped and draped in the usual sterile fashion. We started our procedure on the left side. Original mastectomy incision was opened using 10 blade. Sharp dissection with electrocautery carried out until the pectoralis muscle fibers and encountered and small flap created undermining superiorly. Pectoralis muscle was along its fibers and pocket was entered. 515 mL foster winder was identified completely intact. It was deflated and removed without difficulties. Pocket was evaluated under direct vision with lighted retractor and open capsulotomy performed using electrocautery. Hemostasis was obtained using electrocautery as well. 560 mL sizer for extra fill implant was introduced into the pocket. It seems that a large implant would be beneficial. Therefore, we opted for the second proposed size 605 mL extra fill [place] moderate plus profile implant. Implant was introduced at the table in sterile conditions. Bacitracin irrigation was used to irrigate the pocket. Local block with Exparel was given in the pectoralis muscle. Then implant was introduced into the pocket without difficulties. It appears a good fit. The pocket was closed in layers with interrupted 3-0 Vicryl and 3-0 Monocryl sutures. Also, 3-0 Vicryl Monocryl sutures for the skin. We turned our attention to the right side. Her nipple areolar complex was outlined 42 mm in diameter, and the patient was marked according superior medial pedicle. We started our incision by scoring the nipple areolar complex area, and then dissection was continued until the inferior lateral portion of the breast was resected. Hemostasis was obtained using electrocautery. The pedicle was de- epithelialized using Guidry scissors, good perfusion to the nipple at all times. Wound was irrigated with Bacitracin solution. We used Exparel 6 cc for local anesthesia to infiltrate in the Pectoralis muscle as well as the breast tissue. Than pedicle was turned superior to its new location at 20 cm from sternal notch. The mound was re-created using conforming 0 Vicryl sutures. Pillars were closed with interrupted 3-0 Monocryl sutures. The vertical limb was 7 cm. Excess tissue inferiorly was measured and resected, creating the horizontal scar. Nipple area complex was brought into view through the new opening and sutured in place with 3-0 and 4-0 Monocryl sutures and a 5-0 plain. A 10 mm Alejo-More drain was placed through the lateral portion of the horizontal incision. Total Exparel use 20 cc. Resected tissue sent to pathology in two specimens right and left breast tissue. Right breast 157 grams. Dressings were applied to vertical and horizontal incision: Prineo. Nipples areolar complex: Xeroform and a bulky dressing with a surgical bra. Patient was extubated in the operating room without difficulty and was transferred to the recovery room in stable condition. ESTHER GANNON DO December 07, 2020 15:53
[2020-12-07] MEDS ORDERED: KETOROLAC TROMETHAMINE 10 MG TAB PO PRN (15:55)
[2020-12-07] MEDS ORDERED: ACETAMINOPHEN TAB 650MG DOSE (2X325MG) PO PRN (15:55)
[2020-12-07 17:00] VITALS: BP 153/77
[2020-12-07 17:30] VITALS: BP 153/77
[2020-12-07] MEDS ORDERED: SODIUM CHLORIDE 0.9% INJ 10 ML SYR IV SCH (18:00)
[2020-12-07] MEDS: LR 1,000 ML IV SCH (18:14)
[2020-12-07 18:30] VITALS: BP 140/73
[2020-12-07] MEDS: ceFAZolin SOD 1 GM in D5W MINI-BAG PLUS 50 ML IV SCH (20:53)
[2020-12-07] MEDS: PERCOCET 5MG/325MG TAB PO PRN (20:53)
[2020-12-07 21:21] VITALS: BP 118/67
[2020-12-08 02:00] VITALS: BP 129/72
[2020-12-08] MEDS: LR 1,000 ML IV SCH (05:33)
[2020-12-08] MEDS: ceFAZolin SOD 1 GM in D5W MINI-BAG PLUS 50 ML IV SCH ×2 (05:34→13:15)
[2020-12-08 05:40] VITALS: BP 133/69
[2020-12-08] MEDS: PERCOCET 5MG/325MG TAB PO PRN ×2 (06:00→13:19)
[2020-12-08] MEDS ORDERED: LEVOTHYROXINE 112MCG TABLET (0.112MG) PO SCH (06:00)
[2020-12-08] MEDS ORDERED: OMEPRAZOLE 20 MG CAP PO SCH (09:00)
[2020-12-08 10:15] VITALS: BP 133/64
--- NOTE | 2020-12-08 13:39 | IPNPDOC ---
Subjective General Date Seen: December 08, 2020 Subject Chief Complaint/History The patient is a 70-year-old female admitted with a reason for visit of Left Breast Cancer, Acq Deformity S/P Mastectomy. Patient s/p Left breast reconstruction and right breast reduction for symmetry POD 1. Doing well. Pain controlled. Current Medications Current Medications Current Medications Medications (Trade) Dose Ordered Sig/Rashaun Route PRN Reason Start Time Stop Time Status Last Admin Dose Admin Acetaminophen (Tylenol Tab) 650 mg Q6H PRN PO MILD PAIN (PS 1-4) 12/07/20 15:55 Cefazolin Sodium 1 gm/Dextrose 50 ml @ 100 mls/hr Q8H IV 12/07/20 21:00 12/08/20 13:15 Fentanyl Citrate (Sublimaze) 25 mcg Q5MP PRN IV PAIN LEVEL 5-10 12/07/20 15:50 12/07/20 16:50 DC Heparin Sodium (Heparin (Flush)) 200 units ASDIRECTED PRN IV SEE LABEL COMMENTS 12/07/20 11:40 12/07/20 11:48 DC Heparin Sodium (Heparin (Flush)) 200 units PICC IV 12/07/20 18:00 12/07/20 11:48 DC Hydromorphone HCl (Dilaudid) 0.5 mg Q5MP PRN IV PAIN LEVEL 4-7 12/07/20 15:50 12/07/20 16:50 DC 12/07/20 15:59 Ketorolac Tromethamine (ToRADol) 10 mg Q6HP PRN PO MODERATE PAIN (PS 5-7) 12/07/20 15:55 12/12/20 15:54 Lactated Ringer's 1,000 ml @ 75 mls/hr [id number] IV 12/07/20 15:50 12/07/20 16:50 DC Lactated Ringer's 1,000 ml @ 75 mls/hr [id number] IV 12/07/20 15:55 12/08/20 05:33 Levothyroxine Sodium (Synthroid) 112 mcg DAILY@0600 PO 12/08/20 06:00 12/08/20 06:00 Lidocaine HCl (LIDOCAINE 1% MDV 20ml) 0.1 ml ONCE PRN SQ DISCOMFORT BEFORE IV START 12/07/20 06:00 12/07/20 15:48 DC Metoclopramide HCl (REGLAN INJection) 10 mg Q6HP PRN IV NAUSEA OR VOMITING 12/07/20 15:50 12/07/20 16:50 DC Omeprazole (PriLOSEC) 40 mg DAILY PO 12/08/20 09:00 Ondansetron HCl (ZOFRAN INJection) 4 mg Q4H PRN IV NAUSEA OR VOMITING 12/07/20 15:55 Ondansetron HCl (ZOFRAN INJection) 4 mg Q4HP PRN IV NAUSEA OR VOMITING 12/07/20 15:50 12/07/20 16:50 DC Oxycodone HCl (Roxicodone, Oxyir) 5 mg ASDIRECTED PRN PO PAIN LEVEL 1-4 12/07/20 15:50 12/07/20 16:50 DC Oxycodone/ Acetaminophen (Percocet 5mg/ 325mg Tablet) 2 tab Q4HP PRN PO PAIN LEVEL 8-10 12/07/20 15:55 12/08/20 13:19 Sodium Chloride (Saline Lock Flush) 10 ml ASDIRECTED PRN IV SEE LABEL COMMENTS 12/07/20 11:40 12/07/20 11:48 DC Sodium Chloride (Saline Lock Flush) 10 ml PICC IV 12/07/20 18:00 12/07/20 11:48 DC Allergies Coded Allergies: Sulfa (Sulfonamide Antibiotics) (Verified Allergy, Severe, anaphylaxis, 11/03/19) erythromycin base (Verified Adverse Reaction, Mild, Stomach cramps, 11/03/19) Objective Physical Examination Examination GENERAL APPEARANCE:Patient seen, laying in bed, awake, alert, and oriented. Comfortable, in no acute distress. SKIN: Warm and moist. BREAST: Right and left soft, non-tender incisions intact. JESSICA drains: R 15 cc/24 hr. NAC: Viable, warm, symmetrical, mild post-op ecchymosis, no expanding hematoma. LUNGS: Clear to auscultation bilaterally. No wheezing appreciated. HEART: No chest wall abnormalities. Regular rate and rhythm with no murmurs appreciated. ABDOMEN: Abdomen is soft, non-tender, non-distended. EXTREMITIES: No edema identified. No calf tenderness. Vital Signs Vital Signs Date Time Temp Pulse Resp B/P (MAP) Pulse Ox O2 Delivery O2 Flow Rate FiO2 12/08/20 13:19 18 12/08/20 10:15 97.8 75 133/64 (87) 97 Room Air 12/07/20 18:30 1.0 I&Os I&O- Last 24 Hours up to 6 AM 12/08/20 06:00 Intake Total 1280 ml Output Total 955 ml Balance 325 ml Impression Left breast exchange of electrical superintendent to permanent implant with right breast reduction for symmetry. Doing well. Stable for discharge. dressings changed. f/up plastic surgery. Plan / VTE VTE Prophylaxis Ordered?: Yes ESTHER GANNON DO December 08, 2020 13:39
[2020-12-08] MEDS ORDERED: PERCOCET PO (13:42)
[2020-12-08 14:00] VITALS: BP 128/66
[2020-12-08] MEDS ORDERED: SODIUM CHLORIDE 0.9% INJ 10 ML SYR IV PRN (14:30)
== END 2020-12-08 14:50 | disposition home or self-care (01) ==
LOC: M SDC 10:03 → M MS5PR 16:47 → M SDC 17:03 → M MS5PR 17:04
PROVIDERS: ADMIT Plastic Surgery Surgery of the Hand; ATTEND Plastic Surgery Surgery of the Hand
DX: N65.1 Disproportion of reconstructed breast (principal); L90.5 Scar conditions and fibrosis of skin; Z98.82 Breast implant status; Z90.12 Acquired absence of left breast and nipple; C50.012 Malignant neoplasm of nipple and areola, left female breast; E03.9 Hypothyroidism, unspecified; Z86.19 Personal history of other infectious and parasitic diseases; K21.9 Gastro-esophageal reflux disease without esophagitis; M19.90 Unspecified osteoarthritis, unspecified site; G47.30 Sleep apnea, unspecified; K29.70 Gastritis, unspecified, without bleeding; J30.2 Other seasonal allergic rhinitis; Z88.1 Allergy status to other antibiotic agents; Z88.2 Allergy status to sulfonamides; Z79.899 Other long term (current) drug therapy
CPT/HCPCS: 11970; 19318; 88300; 88305; 96374; 96376; C9290; J0131; J0690; J1100; J1170; J1642; J2250; J2370; J2405; J2765; J3010; L8600

== ENCOUNTER → 2021-01-23 | Outpatient (CLI) | payer OTHER ==
[~2021-01-23] MED LIST changes: +LETR2.5T2; -LIDOCAINE 1% MDV 20ML VIAL SQ PRN; -LR 1,000 ML IV ONE; +OMEP40CA4 PO; -OMEP40CA97 PO; +VITA1CAP21 PO; -ceFAZolin SOD 1 GM in D5W MINI-BAG PLUS 50 ML IV ONE
--- NOTE | 2021-01-23 10:00 | REP ---
INDICATION: ELEVATED LFT COMPARISON: None. TECHNIQUE: Real time de la fuente scale ultrasound examination using curved array transducer. FINDINGS: Liver is normal in contour, size, and echogenicity without focal hepatic lesions identified. Pancreas is unremarkable. The gallbladder is normal and without gallstones, wall thickening, or pericholecystic fluid. No biliary ductal dilatation is appreciated and the common bile duct measures 4.0 mm diameter. Right kidney is normal in reniform shape without hydronephrosis and measures 10.0 x 4.7 x 4.3 cm. No ascites in the visualized right upper quadrant. IMPRESSION: Normal limited right upper quadrant ultrasound <Electronically signed by Kang Tse > 01/23/21 [id number]
== END ==
LOC: M RAD 09:23
PROVIDERS: ATTEND Internal Medicine Medical Oncology
DX: R94.5 Abnormal results of liver function studies (principal)

== ENCOUNTER → 2021-01-24 | Outpatient (CLI) | payer OTHER ==
[2021-01-24 10:24] LABS: BASO # 0.1 10^3/uL (0.0-0.2); BASO % 0.9 % (0.0-1.0); EOS # 0.2 10^3/uL (0.0-0.5); EOS % 3.2 % (0.0-3.0); HEMATOCRIT 36.6 % (36.0-47.0); HEMOGLOBIN 12.2 g/dl (12.0-15.5); LYMPH # 0.8 10^3/uL (1.5-5.0); MEAN CORPUSCULAR HGB CONC 33.3 g/dl (32.0-36.5); MEAN CORPUSCULAR VOLUME 101.9 fl (80.0-96.0); MONO # 0.4 10^3/uL (0.0-0.8); MONO % 7.7 % (2.0-8.0); NEUTROPHILS # 3.9 10^3/uL (1.5-8.5); NEUTROPHILS % 72.6 % (36.0-66.0); PLATELET COUNT, AUTOMATED 227 10^3/uL (150-450); RED BLOOD COUNT 3.59 10^6/uL (4.00-5.40); WHITE BLOOD COUNT 5.4 10^3/uL (4.0-10.0)
[2021-01-24 10:58] LABS: ALBUMIN 3.4 GM/DL (3.2-5.2); ALT/SGPT 82 U/L (12-78); BILIRUBIN,TOTAL 0.4 MG/DL (0.2-1.0); BLOOD UREA NITROGEN 14 MG/DL (7-18); CALCIUM LEVEL 8.7 MG/DL (8.8-10.2); CARBON DIOXIDE LEVEL 29 MEQ/L (21-32); CHLORIDE LEVEL 110 MEQ/L (98-107); CREATININE FOR GFR 0.67 MG/DL (0.55-1.30); GLOMERULAR FILTRATION RATE > 60.0 (>45); GLUCOSE, FASTING 100 MG/DL (70-100); POTASSIUM SERUM 3.9 MEQ/L (3.5-5.1); SODIUM LEVEL 144 MEQ/L (136-145); TOTAL PROTEIN 6.9 GM/DL (6.4-8.2)
--- NOTE | 2021-01-25 16:06 | ECHO ---
ECHOCARDIOGRAM DATE OF PROCEDURE: 01/24/2021 Age: 70 Gender: Female Height: 64 inches Weight: 188 pounds Body surface area: 1.9 m2 PATIENT LOCATION: Outpatient. REFERRING PHYSICIAN: Symone Rosado M.D. INDICATION: Potentially cardiotoxic chemotherapy. MEASUREMENTS: 2D Measurements: RV 3.7 cm LV 3.6 cm Septum 1.1 cm Posterior wall 1.1 cm Aortic Root 3.4 cm LA 3.1 cm LVEF 65% Doppler Measurements: AV 1.2 m/s LVOT 1.0 m/s LVOT diameter 1.8 cm MV-E 54, A 64, E/A ratio 0.8 Early mitral deceleration time 298 msec E prime medial 7.1, A prime medial 12, E prime lateral 6.7 Average E/E prime ratio 7.8/PCWP 11.6 mmHg PV 0.8 m/s Pulmonary artery acceleration time 106 msec PASP 34 mmHg IVC 1.6 cm COMMENTS: Normal sinus rhythm without intraventricular conduction disturbance. Somewhat technically challenging study in light of the patient's breast implants, but diagnostically useful information was still obtained. M-mode and two-dimensional echocardiography was performed with pulse, continuous wave, color flow, and tissue Doppler studies. Normal left ventricular size, wall thickness, and wall motion. Normal left atrial size with Doppler evidence of grade 1 LV diastolic dysfunction, but currently normal estimated mean leaf atrial pressure. Right heart chambers were upper limits of normal to mildly dilated with normal wall motion and Doppler estimated pulmonary arterial pressure that was slightly increased. Normal IVC size and collapse against an elevated central venous pressure. Normal aortic dimensions. Normal appearing aortic valve and aortic valve function. Normal appearing mitral valve apparatus without inflow tract obstruction and only very mild insufficiency (physiologic). Normal appearing tricuspid valve with trace insufficiency (physiologic). No apparent intracardiac mass or pericardial effusion. MTDD
== END ==
LOC: M LAB 07:51 → M CARPUL 07:51
PROVIDERS: ATTEND Internal Medicine Medical Oncology
DX: Z92.21 Personal history of antineoplastic chemotherapy (principal)

== ENCOUNTER → 2021-02-08 | Outpatient (CLI) | payer OTHER ==
[~2021-02-08] MED LIST changes: -OLAN10TA2 PO; +OLAN1TAB20 PO
[2021-02-08 16:57] LABS: BASO # 0.1 10^3/uL (0.0-0.2); BASO % 0.9 % (0.0-1.0); EOS # 0.3 10^3/uL (0.0-0.5); EOS % 4.9 % (0.0-3.0); HEMATOCRIT 36.3 % (36.0-47.0); HEMOGLOBIN 12.3 g/dl (12.0-15.5); LYMPH # 1.4 10^3/uL (1.5-5.0); LYMPH % 25.7 % (24.0-44.0); MEAN CORPUSCULAR HEMOGLOBIN 34.1 pg (27.0-33.0); MEAN CORPUSCULAR HGB CONC 33.9 g/dl (32.0-36.5); MEAN CORPUSCULAR VOLUME 100.6 fl (80.0-96.0); MONO # 0.6 10^3/uL (0.0-0.8); MONO % 11.2 % (2.0-8.0); NEUTROPHILS % 57.1 % (36.0-66.0); PLATELET COUNT, AUTOMATED 224 10^3/uL (150-450); RED BLOOD COUNT 3.61 10^6/uL (4.00-5.40); WHITE BLOOD COUNT 5.3 10^3/uL (4.0-10.0)
[2021-02-08 17:26] LABS: ALBUMIN 3.7 GM/DL (3.2-5.2); BILIRUBIN,TOTAL 0.3 MG/DL (0.2-1.0); CREATININE FOR GFR 1.07 MG/DL (0.55-1.30); GLOMERULAR FILTRATION RATE 54.3 (>45); POTASSIUM SERUM 3.8 MEQ/L (3.5-5.1); TOTAL PROTEIN 7.6 GM/DL (6.4-8.2)
== END ==
LOC: M LAB 16:03
PROVIDERS: ATTEND Internal Medicine Medical Oncology
DX: C50.919 Malignant neoplasm of unspecified site of unspecified female breast (principal)

== ENCOUNTER → 2021-02-08 | Outpatient (CLI) | payer OTHER ==
[2021-02-08 17:25] LABS: CALCIUM LEVEL 8.9 MG/DL (8.8-10.2); CREATININE FOR GFR 1.07 MG/DL (0.55-1.30); GLOMERULAR FILTRATION RATE 54.3 (>45); POTASSIUM SERUM 3.7 MEQ/L (3.5-5.1)
== END ==
LOC: M LAB 16:08
PROVIDERS: ATTEND Surgery
DX: C50.912 Malignant neoplasm of unspecified site of left female breast (principal); N60.92 Unspecified benign mammary dysplasia of left breast; L90.5 Scar conditions and fibrosis of skin

== ENCOUNTER → 2021-02-22 | Outpatient (CLI) | payer OTHER ==
[~2021-02-22] MED LIST changes: -FLUC150T PO; +FLUC150T9 PO; -LEVO500T3 PO; +LEVO500T4 PO; +ONDA-84 PO; -ONDA8TAB10 PO; +OYST500C PO; +PERC5TAB12 PO; -PROC10TA4; -PROC10TA4 PO; +PROC10TA5; +PROC10TA5 PO; +ROLLMIS8 XX
[2021-02-22 15:43] LABS: BASO # 0.1 10^3/uL (0.0-0.2); EOS # 0.3 10^3/uL (0.0-0.5); EOS % 4.2 % (0.0-3.0); HEMATOCRIT 37.2 % (36.0-47.0); HEMOGLOBIN 12.7 g/dl (12.0-15.5); LYMPH # 1.4 10^3/uL (1.5-5.0); LYMPH % 21.7 % (24.0-44.0); MEAN CORPUSCULAR HGB CONC 34.1 g/dl (32.0-36.5); MEAN CORPUSCULAR VOLUME 99.5 fl (80.0-96.0); MONO # 0.6 10^3/uL (0.0-0.8); MONO % 9.6 % (2.0-8.0); NEUTROPHILS % 63.2 % (36.0-66.0); PLATELET COUNT, AUTOMATED 212 10^3/uL (150-450); RED BLOOD COUNT 3.74 10^6/uL (4.00-5.40); WHITE BLOOD COUNT 6.3 10^3/uL (4.0-10.0)
[2021-02-22 16:11] LABS: ALT/SGPT 68 U/L (12-78); BILIRUBIN,TOTAL 0.5 MG/DL (0.2-1.0); BLOOD UREA NITROGEN 13 MG/DL (7-18); CALCIUM LEVEL 9.4 MG/DL (8.8-10.2); CARBON DIOXIDE LEVEL 29 MEQ/L (21-32); CHLORIDE LEVEL 108 MEQ/L (98-107); CHOLESTEROL LEVEL 203 MG/DL (<200); CHOLESTEROL RISK RATIO 4.142 (<5); CREATININE FOR GFR 0.76 MG/DL (0.55-1.30); GLOMERULAR FILTRATION RATE > 60.0 (>45); GLUCOSE, FASTING 99 MG/DL (70-100); HDL CHOLESTEROL 49 MG/DL (>40); LDL CHOLESTEROL 122 MG/DL (<100); MAGNESIUM LEVEL 2.1 MG/DL (1.8-2.4); NON-HDL-C 154 MG/DL; POTASSIUM SERUM 4.2 MEQ/L (3.5-5.1); SODIUM LEVEL 141 MEQ/L (136-145); TOTAL PROTEIN 7.5 GM/DL (6.4-8.2); TRIGLYCERIDES LEVEL 159 MG/DL (<150)
[2021-02-23 16:29] LABS: C REACTIVE PROTEIN QUANTITATIV < 0.30 MG/DL (0.00-0.30)
[2021-02-23 21:03] LABS: ERYTHROCYTE SEDIMENTATION RATE 43 mm/hr (0-30)
== END ==
LOC: M LAB 15:01
PROVIDERS: ATTEND Internal Medicine
DX: E83.51 Hypocalcemia (principal); E78.00 Pure hypercholesterolemia, unspecified; D50.9 Iron deficiency anemia, unspecified; E03.0 Congenital hypothyroidism with diffuse goiter

== ENCOUNTER → 2021-02-22 | Outpatient (CLI) | payer OTHER ==
[~2021-02-22] MED LIST changes: +FLUC150T PO; -FLUC150T9 PO; +LEVO500T3 PO; -LEVO500T4 PO; -ONDA-84 PO; +ONDA8TAB10 PO; -OYST500C PO; -PERC5TAB12 PO; +PROC10TA4; +PROC10TA4 PO; -PROC10TA5; -PROC10TA5 PO; -ROLLMIS8 XX
[2021-02-22 15:43] LABS: BASO # 0.1 10^3/uL (0.0-0.2); BASO % 0.8 % (0.0-1.0); EOS # 0.3 10^3/uL (0.0-0.5); EOS % 4.4 % (0.0-3.0); HEMATOCRIT 37.1 % (36.0-47.0); HEMOGLOBIN 12.7 g/dl (12.0-15.5); LYMPH # 1.4 10^3/uL (1.5-5.0); LYMPH % 22.1 % (24.0-44.0); MEAN CORPUSCULAR HEMOGLOBIN 34.1 pg (27.0-33.0); MEAN CORPUSCULAR HGB CONC 34.2 g/dl (32.0-36.5); MEAN CORPUSCULAR VOLUME 99.7 fl (80.0-96.0); MONO # 0.6 10^3/uL (0.0-0.8); MONO % 9.5 % (2.0-8.0); NEUTROPHILS % 62.7 % (36.0-66.0); PLATELET COUNT, AUTOMATED 202 10^3/uL (150-450); RED BLOOD COUNT 3.72 10^6/uL (4.00-5.40); WHITE BLOOD COUNT 6.4 10^3/uL (4.0-10.0)
[2021-02-22 16:07] LABS: ALBUMIN 4.1 GM/DL (3.2-5.2); ALT/SGPT 67 U/L (12-78); BILIRUBIN,TOTAL 0.5 MG/DL (0.2-1.0); BLOOD UREA NITROGEN 14 MG/DL (7-18); CARBON DIOXIDE LEVEL 30 MEQ/L (21-32); CHLORIDE LEVEL 106 MEQ/L (98-107); CREATININE FOR GFR 0.75 MG/DL (0.55-1.30); FERRITIN 403 NG/ML (8-252); GLOMERULAR FILTRATION RATE > 60.0 (>45); GLUCOSE, FASTING 98 MG/DL (70-100); IRON (FE) 90 UG/DL (50-170); PERCENT SATURATION 31.5 % (13.2-45.0); POTASSIUM SERUM 4.2 MEQ/L (3.5-5.1); SODIUM LEVEL 139 MEQ/L (136-145); TOTAL IRON BINDING CAPACITY 286 UG/DL (250-450); TOTAL PROTEIN 7.5 GM/DL (6.4-8.2)
[2021-02-22 16:28] LABS: HEPATITIS B SURFACE ANTIGEN NEGATIVE (NEGATIVE)
[2021-02-22 16:54] LABS: HEPATITIS C VIRUS ABY INDEX 0.1 INDEX (<0.8)
[2021-02-22 16:55] LABS: HEPATITIS B CORE ANTIBODY IGM NEGATIVE (NEGATIVE)
[2021-02-22 16:58] LABS: HEPATITIS A ANTIBODY IGM NEGATIVE (NEGATIVE)
== END ==
LOC: M LAB 15:05
PROVIDERS: ATTEND Internal Medicine Medical Oncology
DX: C50.919 Malignant neoplasm of unspecified site of unspecified female breast (principal)

== ENCOUNTER → 2021-02-27 | Outpatient (CLI) | payer OTHER ==
[~2021-02-27] MED LIST changes: -FLUC150T PO; +FLUC150T9 PO; -LEVO500T3 PO; +LEVO500T4 PO; +ONDA-84 PO; -ONDA8TAB10 PO; +OYST500C PO; +PERC5TAB12 PO; -PROC10TA4; -PROC10TA4 PO; +PROC10TA5; +PROC10TA5 PO; +PROHANCE 279.3MG/ML 15ML VIAL As Ordered ONE; +PROHANCE 279.3MG/ML 5ML VIAL As Ordered ONE; +ROLLMIS8 XX
== END ==
LOC: M RAD 16:14
PROVIDERS: ATTEND Surgery
DX: C50.912 Malignant neoplasm of unspecified site of left female breast (principal); Z91.89 Other specified personal risk factors, not elsewhere classified; Z90.12 Acquired absence of left breast and nipple; Z98.82 Breast implant status; L90.5 Scar conditions and fibrosis of skin; N60.92 Unspecified benign mammary dysplasia of left breast
CPT/HCPCS: A9576; C8908

== ENCOUNTER → 2021-03-08 | Outpatient (CLI) | payer OTHER ==
[~2021-03-08] MED LIST changes: +FLUC150T PO; -FLUC150T9 PO; +LEVO500T3 PO; -LEVO500T4 PO; -ONDA-84 PO; +ONDA8TAB10 PO; -OYST500C PO; -PERC5TAB12 PO; +PROC10TA4; +PROC10TA4 PO; -PROC10TA5; -PROC10TA5 PO; -PROHANCE 279.3MG/ML 15ML VIAL As Ordered ONE; -PROHANCE 279.3MG/ML 5ML VIAL As Ordered ONE; -ROLLMIS8 XX
[2021-03-08 15:15] LABS: BASO # 0.1 10^3/uL (0.0-0.2); EOS # 0.3 10^3/uL (0.0-0.5); EOS % 4.9 % (0.0-3.0); HEMATOCRIT 34.5 % (36.0-47.0); HEMOGLOBIN 11.6 g/dl (12.0-15.5); LYMPH # 1.3 10^3/uL (1.5-5.0); LYMPH % 25.8 % (24.0-44.0); MEAN CORPUSCULAR HEMOGLOBIN 34.2 pg (27.0-33.0); MEAN CORPUSCULAR HGB CONC 33.6 g/dl (32.0-36.5); MEAN CORPUSCULAR VOLUME 101.8 fl (80.0-96.0); MONO # 0.6 10^3/uL (0.0-0.8); MONO % 11.7 % (2.0-8.0); NEUTROPHILS # 2.9 10^3/uL (1.5-8.5); NEUTROPHILS % 56.2 % (36.0-66.0); PLATELET COUNT, AUTOMATED 211 10^3/uL (150-450); RED BLOOD COUNT 3.39 10^6/uL (4.00-5.40); WHITE BLOOD COUNT 5.2 10^3/uL (4.0-10.0)
[2021-03-08 15:51] LABS: ALBUMIN 3.7 GM/DL (3.2-5.2); ALT/SGPT 41 U/L (12-78); BILIRUBIN,TOTAL 0.5 MG/DL (0.2-1.0); BLOOD UREA NITROGEN 14 MG/DL (7-18); CALCIUM LEVEL 8.8 MG/DL (8.8-10.2); CARBON DIOXIDE LEVEL 28 MEQ/L (21-32); CHLORIDE LEVEL 110 MEQ/L (98-107); CREATININE FOR GFR 0.65 MG/DL (0.55-1.30); FERRITIN 308 NG/ML (8-252); GLOMERULAR FILTRATION RATE > 60.0 (>45); GLUCOSE, FASTING 98 MG/DL (70-100); IRON (FE) 57 UG/DL (50-170); PERCENT SATURATION 20.5 % (13.2-45.0); POTASSIUM SERUM 3.7 MEQ/L (3.5-5.1); SODIUM LEVEL 143 MEQ/L (136-145); TOTAL IRON BINDING CAPACITY 278 UG/DL (250-450); TOTAL PROTEIN 7.3 GM/DL (6.4-8.2)
== END ==
LOC: M LAB 14:54
PROVIDERS: ATTEND Internal Medicine Medical Oncology
DX: C50.919 Malignant neoplasm of unspecified site of unspecified female breast (principal)

== ENCOUNTER 2021-03-12 14:21 | Emergency (ER) | payer OTHER ==
[~2021-03-12] VITALS: Ht 162.6 cm; Wt 86.4 kg
[2021-03-12] MEDS ORDERED: PERCOCET 5MG/325MG TAB PO ONE ×2 (17:35→20:45)
--- NOTE | 2021-03-12 18:10 | REP ---
INDICATION: knee swelling, pain calf. COMPARISON: None. TECHNIQUE: AP and lateral views FINDINGS: Chronic changes are seen involving the knee and ankle. There is no acute fracture. IMPRESSION: Chronic changes <Electronically signed by Jason Ortiz > 03/12/21 [id number]
--- NOTE | 2021-03-12 18:10 | REP ---
INDICATION: knee swelling, pain calf COMPARISON: None TECHNIQUE: Five views FINDINGS: There is tricompartmental marginal osteophytosis with medial compartmental narrowing and subchondral sclerosis. There is patellofemoral joint space narrowing. There is no acute fracture, dislocation, or subluxation. IMPRESSION: Chronic changes as described above. <Electronically signed by Jason Ortiz > 03/12/21 [id number]
--- NOTE | 2021-03-12 19:15 | REP ---
INDICATION: knee swelling, pain calf. COMPARISON: None. TECHNIQUE: Multiple ultrasonographic images of the deep venous structures of the right lower extremity were obtained from the inguinal ligament to the ankle. Venous compression techniques, color doppler imaging, and augmentation techniques were also obtained where appropriate. As per the ACR guidelines the anterior tibial vein can not be effectively evaluated. Only compression techniques in the calf on the peroneal and posterior tibial veins was attempted/performed. FINDINGS: There is no abnormal echogenic material seen within any of the visualized deep venous structures that would suggest acute thrombosis. Coaptation is unremarkable throughout. Doppler interrogation shows an expected response to respiratory variability and augmentation in the thigh. Compression techniques in the calf showed no abnormality. The color flow images show what appears to be a normal vascular pattern throughout the thigh. IMPRESSION: There is no ultrasonographic evidence of deep venous thrombosis involving any of the visualized deep venous structures of the right lower extremity as described above. <Electronically signed by Jason Ortiz > 03/12/21 [id number]
[2021-03-12 20:40] LABS: BASO % 0.5 % (0.0-1.0); EOS # 0.1 10^3/uL (0.0-0.5); HEMATOCRIT 34.6 % (36.0-47.0); HEMOGLOBIN 11.9 g/dl (12.0-15.5); LYMPH # 1.4 10^3/uL (1.5-5.0); LYMPH % 16.7 % (24.0-44.0); MEAN CORPUSCULAR HEMOGLOBIN 34.9 pg (27.0-33.0); MEAN CORPUSCULAR HGB CONC 34.4 g/dl (32.0-36.5); MEAN CORPUSCULAR VOLUME 101.5 fl (80.0-96.0); MONO # 0.7 10^3/uL (0.0-0.8); NEUTROPHILS # 5.9 10^3/uL (1.5-8.5); NEUTROPHILS % 72.4 % (36.0-66.0); PLATELET COUNT, AUTOMATED 209 10^3/uL (150-450); RED BLOOD COUNT 3.41 10^6/uL (4.00-5.40); WHITE BLOOD COUNT 8.1 10^3/uL (4.0-10.0)
[2021-03-12 21:14] LABS: ERYTHROCYTE SEDIMENTATION RATE 49 mm/hr (0-30)
[2021-03-12] MEDS ORDERED: PERC5TAB12 PO (21:50)
[2021-03-12] MEDS ORDERED: ROLLMIS8 XX (21:50)
[2021-03-12] MEDS ORDERED: OXYCODONE/APAP 5MG/325MG(BULK FOR ED) 1 TABLET PO ONE (21:55)
[2021-03-12 22:17] VITALS: BP 168/78
== END 2021-03-12 22:22 | disposition home or self-care (01) ==
LOC: M ED 14:21
DX: M25.561 Pain in right knee (principal); M25.461 Effusion, right knee; K21.9 Gastro-esophageal reflux disease without esophagitis; E03.9 Hypothyroidism, unspecified; Z79.890 Hormone replacement therapy; Z79.899 Other long term (current) drug therapy; Z88.1 Allergy status to other antibiotic agents; Z88.2 Allergy status to sulfonamides; Z85.3 Personal history of malignant neoplasm of breast; Z92.21 Personal history of antineoplastic chemotherapy; Z87.442 Personal history of urinary calculi; Z98.890 Other specified postprocedural states

== ENCOUNTER → 2021-03-15 | Outpatient (CLI) | payer OTHER ==
[~2021-03-15] MED LIST changes: +PERC5TAB12 PO; +ROLLMIS8 XX
--- NOTE | 2021-03-15 12:25 | RADONC ---
Radiation Oncology Hx/FUP Radiation Oncology Hx/FUP Date of Service: Mar 15, 2021 Pt Identifier Stacey Cherry is a 70 year old female seen for a followup visit today at the department of radiation oncology for a history of left breast cancer [id number] ER/ND/HER2+ Grade 2 stage IA. She is s/p left mastectomy and SLNB on 11/17/19. She then received adjuvant chemotherapy and HER2 directed therapy 12/27/19-05/03/20. She underwent PMRT 50.4 Gy in 28 fractions from 06/07/20- 07/18/20. She has continued on herceptin/perjeta maintenance and started letrozole in June 2020. She is seen today for survivorship care. Diagnosis/Treatment History Oncologic History As above Recent data: 02/27/21 MRI breast negative BIRADS 2 Survivorship Test Due Next Last result Notes TSH, T4* 6m post-tx, then q1y August 2021 Carotid US* q10 y post-tx 2029 Smoking cessation Assess annually if applicable N/A Screening CT chest q1y if eligible per USPSTF N/A Mammograms Min q1y, if breast conservation 202102/27/21 MRI negative CBC,CMP, Lipids q1y Per Dr. Paredes DEXA q2y if on AI Per Dr. Munoz 07/11/20 osteoporosis on calcium vitamin D Interval History Stacey has an excruciatingly painful and swollen right knee, was in ED for this the other day. Had x-rays, septic joint ruled out. Can't walk without walker. Not taking anti-inflammatory meds. Has PCP follow up today. Has been taking percocet sparingly with some positive effect. She also had breast implant and mastopexy in November with Dr. Gannon. Stacey is satisfied with cosmetic outcome. She has no chest pain. No skin concerns, no swelling or impaired ROM of the LUE. Current Therapy Letrozole/herceptin/perjeta Stage Left breast cancer [id number] ER/ND/HER2+ Grade 2 stage IA Social History: Never smoker Drinks rarely Allergies / Meds Allergies: Coded Allergies: Sulfa (Sulfonamide Antibiotics) (Verified Allergy, Severe, anaphylaxis, 11/03/19) erythromycin base (Verified Adverse Reaction, Mild, Stomach cramps, 11/03/19) Home Meds Active Scripts Walker (WALKER) 1 Each Each, EACH XX for GAIT DISTURBANCE, #1 Prov:NOEMY RIVAS PA-C 03/12/21 Oxycodone HCl/Acetaminophen (Percocet 5-325 mg Tablet) 1 Each Tablet, 1 TAB PO Q6H PRN for PAIN MDD 4, #8 TAB Prov:NOEMY RIVAS PA-C 03/12/21 Letrozole (Letrozole) 2.5 Mg Tablet, 2.5 MG PO DAILY for 90 Days, #90 TAB Prov:KIAH MUNOZ MD FACP 01/17/21 Diphenoxylate HCl/Atropine (Lomotil 2.5-0.025 mg Tablet) 1 Each Tablet, 1 TAB PO QIDP PRN for DIARRHEA MDD 4 Tablet(s), #60 TAB Prov:KIAH MUNOZ MD FACP 01/11/21 Oxycodone/Acetaminophen (Oxycodone-Acetaminophen 5-325) 1 Each Tablet, 1 TAB PO Q4HP PRN for PAIN LEVEL 8-10 MDD 6 for 7 Days, #30 TAB Prov:ESTHER GANNON DO 12/08/20 Ondansetron HCl (Ondansetron HCl) 8 Mg Tablet, 8 MG PO Q6H PRN for NAUSEA OR VOMITING, #30 TAB 3 Refills Prov:Jennifer Rodriguez MD 12/02/19 Reported Medications Vitamin A Palmitate (Vitamin A) 10,000 Unit Capsule, 69434 UNIT PO DAILY, CAP 01/11/21 Prochlorperazine Maleate (Prochlorperazine Maleate) 10 Mg Tablet, DAILY PRN for NAUSEA 05/26/20 Hydrocodone/Acetaminophen (Hydrocodone-Acetamin 5-325 mg) 1 Each Tablet, 1 TAB PO Q4HP 05/26/20 Levothyroxine Sodium (LEVOTHYROXINE SODIUM) 112 Mcg Tablet, 112 MCG PO DAILY 12/27/19 Azelastine HCl (Azelastine HCl) 0.15% [place].pump, 2 SPRAY NARES DAILY 09/09/19 Acetaminophen (Acetaminophen) 500 Mg Tablet, 1000 MG PO DAILY PRN for PAIN / FEVER 09/09/19 Omeprazole (Omeprazole) 40 Mg Cap, 40 MG PO DAILY, CAP PATIENT USES PRN 08/12/18 Review of Systems Review of Systems Constitutional: Denies: Chills, Fever, Fatigue Eyes: Denies: Pain HEENT: Denies: Head Aches Skin: Denies: Rash, Lesions Breast: Denies: New Breast Lumps / Masses, Nipple Retraction, Breast Pain or Tenderness Pulmonary: Denies: Dyspnea, Cough Cardiovascular: Denies: Chest Pain, Palpitations Gastrointestinal: Denies: Abdominal Pain Hematologic: Denies: Bruising, Bleeding Excessively Endocrine: Denies: Cold Intolerance Musculoskeletal: Reports: Joint pain, Joint sweling; Denies: Neck pain Neurological: Denies: Weakness, Numbness Psych: Reports: Mood Normal Physical Examination Vital Signs Wt 185 lbs T 96.4 P 100 RR 20 BP 143/90 O2 99% Pain 0 Fatigue 0 General Exam: Alert, Cooperative, No Acute Distress Eye Exam: PERRLA, EOMI ENT EXAM: Atraumatic Neck Exam: Supple; Negative: Lymphadenopathy Chest Exam: Clear to auscultation Heart Exam: Rate Normal Breast Exam: Skin Changes (There is mild hypopigmentation of the left chest wall. ROM intact BL UE, no swelling); Negative: Lumps or Masses (Right [place] breast is without palpable lesions in the breast or axilla. The left reconstructed breast is without lesions in the chest wall or axilla. ), Nipple Retraction Extremity Exam: Edema (The right knee is warm and swollen, especially over the suprapatellar tendon. There is no palpable effusion. ) Skin Exam: Nl turgor and temperature Neuro Exam: Normal Gait, Normal Speech, Cranial Nerves 3-12 NL Psych Exam: Mental status NL Diagnostic and Laboratory Diagnostic Review Radiologic images, relevant labs and pathology reports were personally reviewed and discussed with Ms. Cherry. Assessment and Plan Impression Assessment Ms. Cherry is a 70 year old female with a history of left breast cancer [id number] ER/ND/HER2+ Grade 2 stage IA. She is s/p left mastectomy and SLNB on 11/17/19. She then received adjuvant chemotherapy and HER2 directed therapy 12/27/19-05/03/20. She underwent PMRT 50.4 Gy in 28 fractions from 06/07/20- 07/18/20. She has continued on herceptin/perjeta maintenance and started letrozole in June 2020. She is seen today for survivorship care. She is doing well from a breast standpoint. Screening is up to date. Remains on systemic therapy without side effects. No significant late sequelae of RT present other than mild hypopigmentation of the skin. She does have a significantly painful right knee, which is swollen and tender and warm. I believe she has patellar tendonitis based on the pattern of swelling present. She is seeing her PCP about this later today, I have no doubt she would benefit from some steroids. With respect to follow up I will see her again in 6 months and ensure she has TFTs checked at that time. Performance Status ECOG 1 Plan Follow up in 6 months TFTs at that time Ms. Cherry was encouraged to call with questions or concerns in the interim period. Billing Statement Total time of [27] minutes was spent preparing for the visit [1], obtaining HPI [6], examining the patient [4], reviewing diagnostic tests [2], discussing management options [6], coordinating care [1], and writing this note [7]. VICTORIANO CHATMAN MD Mar 15, 2021 12:24
== END ==
LOC: M ONCR 10:49
PROVIDERS: ATTEND General Practice
DX: C50.112 Malignant neoplasm of central portion of left female breast (principal); M25.561 Pain in right knee; M25.461 Effusion, right knee; Z79.890 Hormone replacement therapy; Z79.899 Other long term (current) drug therapy; Z88.2 Allergy status to sulfonamides; Z90.12 Acquired absence of left breast and nipple; Z92.21 Personal history of antineoplastic chemotherapy; Z92.3 Personal history of irradiation

== ENCOUNTER → 2021-04-03 | Outpatient (CLI) | payer OTHER ==
--- NOTE | 2021-04-03 22:39 | ECHO ---
ECHOCARDIOGRAM DATE OF PROCEDURE: 04/03/2021 Age: 70 Gender: Female Height: 163 cm Weight: 85 kg REFERRING PHYSICIAN: Dr. Symone Rosado INDICATION: Breast cancer, chemotherapy MEASUREMENTS: IVS 1.0 cm LV 2.4 cm LVPW 1.0 cm LA 2.9 cm Aorta 3.1 cm Left atrium volume index 19 Mitral E wave velocity 55 Mitral A wave velocity 62 E prime septal 6.6 E prime lateral 8.0 FINDINGS: This study is of fair technical quality in part due to breast implants and also secondary to patient's body habitus. Left ventricle is of relatively small size. There is normal LV systolic function with estimated LVEF 60 to 65%. Right ventricle is also normal size and systolic function. Both atria appear normal. Aortic, mitral and tricuspid valves appear grossly normal based on limited views. Pulmonic valve was not well seen. No pericardial effusion is noted. Inferior vena cava was poorly visualized, but based on limited views appears to be of very small caliber indicative of normal CVP. Aortic root is normal. Aortic arch and abdominal aorta were not well seen. Doppler interrogation reveals competent aortic valve. There is trace mitral insufficiency. Tricuspid valve is functionally competent. Mitral inflow pattern and tissue Doppler imaging of mitral annulus revealed grade 1 diastolic dysfunction. CONCLUSIONS: 1. Study is of limited technical quality, underlying sinus rhythm. 2. Normal LV size with normal LV systolic function and grade 1 diastolic dysfunction. 3. No significant valvular disease. 4. Unable to estimate central venous pressure and pulmonary artery pressure, but no signs to suggest pulmonary hypertension.
== END ==
LOC: M CARPUL 08:45
PROVIDERS: ATTEND Internal Medicine Medical Oncology
DX: C50.912 Malignant neoplasm of unspecified site of left female breast (principal)

== ENCOUNTER → 2021-07-24 | Outpatient (CLI) | payer OTHER ==
[~2021-07-24] MED LIST changes: -FLUC150T PO; +FLUC150T9 PO; -LEVO500T3 PO; +LEVO500T4 PO; +ONDA-84 PO; -ONDA8TAB10 PO; +OYST500C PO; -PROC10TA4; -PROC10TA4 PO; +PROC10TA5; +PROC10TA5 PO
[2021-07-24 16:01] LABS: BASO # 0.1 10^3/uL (0.0-0.2); BASO % 1.2 % (0.0-1.0); EOS # 0.3 10^3/uL (0.0-0.5); EOS % 4.5 % (0.0-3.0); HEMATOCRIT 38.3 % (36.0-47.0); HEMOGLOBIN 12.8 g/dl (12.0-15.5); LYMPH # 1.9 10^3/uL (1.5-5.0); LYMPH % 32.1 % (24.0-44.0); MEAN CORPUSCULAR HEMOGLOBIN 33.5 pg (27.0-33.0); MEAN CORPUSCULAR HGB CONC 33.4 g/dl (32.0-36.5); MEAN CORPUSCULAR VOLUME 100.3 fl (80.0-96.0); MONO # 0.6 10^3/uL (0.0-0.8); MONO % 10.1 % (2.0-8.0); NEUTROPHILS % 51.9 % (36.0-66.0); PLATELET COUNT, AUTOMATED 223 10^3/uL (150-450); RED BLOOD COUNT 3.82 10^6/uL (4.00-5.40); WHITE BLOOD COUNT 5.8 10^3/uL (4.0-10.0)
[2021-07-24 16:32] LABS: BLOOD UREA NITROGEN 15 MG/DL (7-18); CALCIUM LEVEL 9.2 MG/DL (8.8-10.2); CARBON DIOXIDE LEVEL 28 MEQ/L (21-32); CHLORIDE LEVEL 109 MEQ/L (98-107); CREATININE FOR GFR 0.73 MG/DL (0.55-1.30); FREE T4 1.13 NG/DL (0.76-1.46); GLOMERULAR FILTRATION RATE > 60.0 (>45); GLUCOSE, FASTING 100 MG/DL (70-100); POTASSIUM SERUM 4.1 MEQ/L (3.5-5.1); SODIUM LEVEL 142 MEQ/L (136-145); THYROID STIMULATING HORMONE 0.635 uIU/ML (0.358-3.740)
== END ==
LOC: M RAD 15:21
PROVIDERS: ATTEND Internal Medicine
DX: Z00.00 Encounter for general adult medical examination without abnormal findings (principal); E03.9 Hypothyroidism, unspecified

== ENCOUNTER → 2021-08-04 | Outpatient (CLI) | payer OTHER ==
[~2021-08-04] MED LIST changes: +FLUC150T PO; -FLUC150T9 PO
== END ==
LOC: M LABSMTC 12:20
PROVIDERS: ATTEND Anesthesiology
DX: Z01.818 Encounter for other preprocedural examination (principal); Z11.52 Encounter for screening for COVID-19

== ENCOUNTER 2021-08-09 10:18 | Observation (INO) | payer OTHER ==
[~2021-08-09] VITALS: Ht 165.1 cm; Wt 85.5 kg
[~2021-08-09 10:18] MED LIST changes: +LIDOCAINE 2% 100MG/5ML SDV (FOR ANES.) As Ordered ONE; +LR 1,000 ML IV ONE; +MIDAZOLAM INJ 2MG/2ML VIAL (J2250 PER 1MG) As Ordered ONE; +ROCURONIUM BROMIDE 50 MG/5 ML VIAL As Ordered ONE; +ceFAZolin SOD 2 GM in IV 1 EA IV ONE; +fentaNYL 100 MCG/2 ML INJECTION (J3010) As Ordered ONE; +propofoL 200 MG/20 ML VIAL As Ordered ONE
[2021-08-09] MEDS ORDERED: SCOPOLAMINE 1MG TRANSDERMAL PATCH TOP ONE (11:05)
[2021-08-09] MEDS ORDERED: BUPIVACAINE LIPOSOME/PF 1.3% 20ML VIAL (13.3MG/ML)(EXPAREL)(C9290 PER1MG) As Ordered ONE (11:32)
[2021-08-09] MEDS ORDERED: GENTAMICIN SULF 80MG/2ML VIAL As Ordered ONE (11:32)
[2021-08-09] MEDS ORDERED: ACETAMINOPHEN 1000MG 100ML IV BTL (OFIRMEV) (J0131 PER 10MG) As Ordered ONE (12:12)
[2021-08-09] MEDS ORDERED: ONDANSETRON 4MG/2ML VIAL As Ordered ONE (12:39)
[2021-08-09] MEDS ORDERED: dexameTHASONE 4 MG/ML 1ML VIAL (J1100 PER 1MG) As Ordered ONE (12:39)
[2021-08-09] MEDS ORDERED: SUGAMMADEX SODIUM 500 MG/5 ML VIAL (BRIDION) As Ordered ONE (12:40)
[2021-08-09] MEDS ORDERED: PHENYLephrine 500MCG 5ML (100MCG/ML) SYRINGE As Ordered ONE ×2 (12:55→13:31)
[2021-08-09] MEDS ORDERED: HYDROmorphone HCL 2MG/ML 1ML VIAL As Ordered ONE (13:03)
[2021-08-09] MEDS ORDERED: METOPROLOL 5 MG/5 ML VIAL As Ordered ONE (13:05)
[2021-08-09] MEDS ORDERED: ACETAMINOPHEN TAB 650MG DOSE (2X325MG) PO PRN (14:50)
[2021-08-09] MEDS ORDERED: ONDANSETRON 4MG/2ML VIAL IV PRN ×2 (14:50→15:05)
[2021-08-09] MEDS ORDERED: KETOROLAC TROMETHAMINE 10 MG TAB PO PRN (14:50)
[2021-08-09] MEDS ORDERED: PERCOCET 5MG/325MG TAB PO PRN ×2 (14:50→15:05)
[2021-08-09] MEDS ORDERED: LR 1,000 ML IV SCH (15:05)
[2021-08-09] MEDS ORDERED: METOCLOPRAMIDE INJ 10MG/2ML VIAL (J2765 PER 1) IV PRN (15:05)
[2021-08-09] MEDS ORDERED: fentaNYL 100 MCG/2 ML INJECTION (J3010) IV PRN (15:05)
[2021-08-09] MEDS ORDERED: NORCO, ANEXSIA 5/325MG TABLET (HYDROcodone/ACETAMINOPHEN) PO SCH (15:20)
[2021-08-09 15:45] VITALS: BP 125/79
[2021-08-09 16:15] VITALS: BP 125/76
[2021-08-09 17:15] VITALS: BP 124/75
[2021-08-09] MEDS: LR 1,000 ML IV SCH (18:12)
[2021-08-09 18:15] VITALS: BP 130/85
[2021-08-09 19:16] VITALS: BP 127/72
[2021-08-09] MEDS: ceFAZolin SOD 1 GM in D5W MINI-BAG PLUS 50 ML IV SCH (19:43)
[2021-08-10] MEDS: ceFAZolin SOD 1 GM in D5W MINI-BAG PLUS 50 ML IV SCH (03:55)
[2021-08-10] MEDS: LR 1,000 ML IV SCH (03:56)
[2021-08-10 05:25] VITALS: BP 136/70
[2021-08-10] MEDS ORDERED: LEVOTHYROXINE 112MCG TABLET (0.112MG) PO SCH (06:00)
[2021-08-10] MEDS ORDERED: OMEPRAZOLE 20 MG CAP PO SCH (09:00)
[2021-08-10] MEDS ORDERED: LETROZOLE 2.5 MG TAB PO SCH (09:00)
== END 2021-08-10 13:35 | disposition home or self-care (01) ==
LOC: M SDC 10:18 → M MS5PR 10:19
PROVIDERS: ADMIT Plastic Surgery Surgery of the Hand; ATTEND Plastic Surgery Surgery of the Hand
DX: T85.44XA Capsular contracture of breast implant, initial encounter (principal); N64.89 Other specified disorders of breast; Y81.2 Prosthetic and other implants, materials and accessory general- and plastic-surgery devices associated with adverse incidents; N65.1 Disproportion of reconstructed breast; Z85.3 Personal history of malignant neoplasm of breast; E03.9 Hypothyroidism, unspecified; K21.9 Gastro-esophageal reflux disease without esophagitis; M19.90 Unspecified osteoarthritis, unspecified site; I10 Essential (primary) hypertension; M81.0 Age-related osteoporosis without current pathological fracture; G47.30 Sleep apnea, unspecified; Z92.3 Personal history of irradiation; Z90.12 Acquired absence of left breast and nipple; Z88.1 Allergy status to other antibiotic agents; Z88.2 Allergy status to sulfonamides; Z79.899 Other long term (current) drug therapy; Z79.891 Long term (current) use of opiate analgesic
CPT/HCPCS: 19101; 19342; 88300; 88304; 96365; 96366; 96376; C9290; J0131; J0690; J1100; J1170; J1580; J2250; J2370; J2405; J3010; L8600

== ENCOUNTER → 2021-09-24 | Outpatient (CLI) | payer OTHER ==
[~2021-09-24] MED LIST changes: -FLUC150T PO; +FLUC150T9 PO; -LIDOCAINE 2% 100MG/5ML SDV (FOR ANES.) As Ordered ONE; -LR 1,000 ML IV ONE; -MIDAZOLAM INJ 2MG/2ML VIAL (J2250 PER 1MG) As Ordered ONE; -ROCURONIUM BROMIDE 50 MG/5 ML VIAL As Ordered ONE; -ceFAZolin SOD 2 GM in IV 1 EA IV ONE; -fentaNYL 100 MCG/2 ML INJECTION (J3010) As Ordered ONE; -propofoL 200 MG/20 ML VIAL As Ordered ONE
== END ==
LOC: M WHC 08:07
PROVIDERS: ATTEND Surgery
DX: C50.912 Malignant neoplasm of unspecified site of left female breast (principal); N60.92 Unspecified benign mammary dysplasia of left breast; Z91.89 Other specified personal risk factors, not elsewhere classified; L90.5 Scar conditions and fibrosis of skin

== ENCOUNTER → 2021-10-29 | Outpatient (CLI) | payer OTHER ==
[~2021-10-29] MED LIST changes: +GLUC500C37 PO
[2021-10-29 15:47] LABS: BASO # 0.1 10^3/uL (0.0-0.2); BASO % 0.9 % (0.0-1.0); EOS # 0.2 10^3/uL (0.0-0.5); HEMATOCRIT 36.7 % (36.0-47.0); HEMOGLOBIN 12.3 g/dl (12.0-15.5); LYMPH # 1.8 10^3/uL (1.5-5.0); LYMPH % 27.4 % (24.0-44.0); MEAN CORPUSCULAR HEMOGLOBIN 33.8 pg (27.0-33.0); MEAN CORPUSCULAR HGB CONC 33.5 g/dl (32.0-36.5); MEAN CORPUSCULAR VOLUME 100.8 fl (80.0-96.0); MONO # 0.7 10^3/uL (0.0-0.8); NEUTROPHILS # 3.9 10^3/uL (1.5-8.5); NEUTROPHILS % 58.6 % (36.0-66.0); PLATELET COUNT, AUTOMATED 228 10^3/uL (150-450); RED BLOOD COUNT 3.64 10^6/uL (4.00-5.40); WHITE BLOOD COUNT 6.7 10^3/uL (4.0-10.0)
[2021-10-29 16:15] LABS: ALBUMIN 3.8 GM/DL (3.2-5.2); ALT/SGPT 30 U/L (12-78); BILIRUBIN,TOTAL 0.6 MG/DL (0.2-1.0); BLOOD UREA NITROGEN 16 MG/DL (7-18); CALCIUM LEVEL 9.2 MG/DL (8.8-10.2); CARBON DIOXIDE LEVEL 30 MEQ/L (21-32); CHLORIDE LEVEL 106 MEQ/L (98-107); CHOLESTEROL LEVEL 237 MG/DL (<200); CHOLESTEROL RISK RATIO 4.557 (<5); CREATININE FOR GFR 0.76 MG/DL (0.55-1.30); GLOMERULAR FILTRATION RATE > 60.0 (>45); GLUCOSE, FASTING 93 MG/DL (70-100); HDL CHOLESTEROL 52 MG/DL (>40); LDL CHOLESTEROL 137 MG/DL (<100); NON-HDL-C 185 MG/DL; POTASSIUM SERUM 3.9 MEQ/L (3.5-5.1); SODIUM LEVEL 138 MEQ/L (136-145); THYROID STIMULATING HORMONE 0.509 uIU/ML (0.358-3.740); TOTAL PROTEIN 7.5 GM/DL (6.4-8.2); TRIGLYCERIDES LEVEL 240 MG/DL (<150)
== END ==
LOC: M LAB 10-27 10:24
PROVIDERS: ATTEND Internal Medicine
DX: D50.9 Iron deficiency anemia, unspecified (principal)

== ENCOUNTER → 2022-01-14 | Outpatient (CLI) | payer OTHER | LOC: M RAD 16:30 → M LAB 16:30 | PROVIDERS: ATTEND Internal Medicine | DX: M54.50 Low back pain, unspecified (principal) ==

== ENCOUNTER → 2022-01-23 | Outpatient (REF) | payer OTHER ==
[2022-01-23 16:42] LABS: BASO # 0.1 10^3/uL (0.0-0.2); EOS # 0.6 10^3/uL (0.0-0.5); HEMATOCRIT 37.3 % (36.0-47.0); HEMOGLOBIN 12.4 g/dl (12.0-15.5); LYMPH % 24.1 % (24.0-44.0); MEAN CORPUSCULAR HEMOGLOBIN 32.8 pg (27.0-33.0); MEAN CORPUSCULAR HGB CONC 33.2 g/dl (32.0-36.5); MEAN CORPUSCULAR VOLUME 98.7 fl (80.0-96.0); MONO # 0.6 10^3/uL (0.0-0.8); MONO % 7.6 % (2.0-8.0); NEUTROPHILS % 60.1 % (36.0-66.0); PLATELET COUNT, AUTOMATED 261 10^3/uL (150-450); RED BLOOD COUNT 3.78 10^6/uL (4.00-5.40); WHITE BLOOD COUNT 8.4 10^3/uL (4.0-10.0)
[2022-01-23 16:46] LABS: APPEARANCE, URINE CLEAR (CLEAR); BACTERIA, URINE AUTO NEGATIVE (NEGATIVE); BILIRUBIN, URINE AUTO NEGATIVE (NEGATIVE); BLOOD, URINE BLOOD NEGATIVE (NEGATIVE); COLOR, URINE YELLOW (YELLOW); GLUCOSE, URINE (UA) AUTO NEGATIVE (NEGATIVE); KETONE, URINE AUTO NEGATIVE (NEGATIVE); LEUKOCYTE ESTERASE, URINE AUTO TRACE (NEGATIVE); MUCUS, URINE SMALL (NEGATIVE); NITRITE, URINE AUTO NEGATIVE (NEGATIVE); PROTEIN, URINE AUTO NEGATIVE (NEGATIVE); RBC, URINE AUTO 1 /HPF (0-3); SPECIFIC GRAVITY URINE AUTO 1.026 (1.002-1.035); SQUAMOUS EPITHELIAL CELL UR AU 0 /HPF (0-6); UROBILINOGEN, URINE AUTO 0.2 mg/dL (0.0-2.0); WBC, URINE AUTO 1 /HPF (0-3)
[2022-01-23 17:09] LABS: TOTAL PROTEIN,RANDOM URINE 19.7 MG/DL (0.0-12.0)
[2022-01-23 17:13] LABS: ALT/SGPT 35 U/L (12-78); BILIRUBIN,TOTAL 0.4 MG/DL (0.2-1.0); BLOOD UREA NITROGEN 19 MG/DL (7-18); C REACTIVE PROTEIN QUANTITATIV 0.61 MG/DL (0.00-0.30); CALCIUM LEVEL 9.6 MG/DL (8.8-10.2); CARBON DIOXIDE LEVEL 26 MEQ/L (21-32); CHLORIDE LEVEL 108 MEQ/L (98-107); COMPLEMENT C3 147 MG/DL (90-180); COMPLEMENT C4 31 MG/DL (10-40); CREATININE FOR GFR 0.71 MG/DL (0.55-1.30); GLOMERULAR FILTRATION RATE > 60.0 (>45); GLUCOSE, FASTING 101 MG/DL (70-100); POTASSIUM SERUM 4.2 MEQ/L (3.5-5.1); SODIUM LEVEL 141 MEQ/L (136-145); TOTAL PROTEIN 7.3 GM/DL (6.4-8.2)
[2022-01-23 17:20] LABS: ERYTHROCYTE SEDIMENTATION RATE 33 mm/hr (0-30)
== END ==
LOC: M SFHCRHEU 15:20
PROVIDERS: ATTEND Internal Medicine Rheumatology
DX: R76.8 Other specified abnormal immunological findings in serum (principal); M25.50 Pain in unspecified joint

== ENCOUNTER → 2022-01-25 | Outpatient (CLI) | payer OTHER | LOC: M PLAIMG 15:17 | PROVIDERS: ATTEND Internal Medicine Rheumatology | DX: R76.8 Other specified abnormal immunological findings in serum (principal); M25.50 Pain in unspecified joint ==

== ENCOUNTER → 2022-02-04 | Outpatient (CLI) | payer OTHER ==
[2022-02-04 10:21] LABS: BASO # 0.1 10^3/uL (0.0-0.2); BASO % 1.6 % (0.0-1.0); EOS # 0.6 10^3/uL (0.0-0.5); EOS % 11.1 % (0.0-3.0); HEMATOCRIT 36.1 % (36.0-47.0); HEMOGLOBIN 12.1 g/dl (12.0-15.5); LYMPH # 1.3 10^3/uL (1.5-5.0); LYMPH % 25.9 % (24.0-44.0); MEAN CORPUSCULAR HEMOGLOBIN 33.7 pg (27.0-33.0); MEAN CORPUSCULAR HGB CONC 33.5 g/dl (32.0-36.5); MEAN CORPUSCULAR VOLUME 100.6 fl (80.0-96.0); MONO # 0.5 10^3/uL (0.0-0.8); MONO % 9.3 % (2.0-8.0); NEUTROPHILS # 2.6 10^3/uL (1.5-8.5); NEUTROPHILS % 51.7 % (36.0-66.0); PLATELET COUNT, AUTOMATED 224 10^3/uL (150-450); RED BLOOD COUNT 3.59 10^6/uL (4.00-5.40); WHITE BLOOD COUNT 5.1 10^3/uL (4.0-10.0)
[2022-02-04 14:42] LABS: ALBUMIN 3.6 GM/DL (3.2-5.2); ALT/SGPT 30 U/L (12-78); BILIRUBIN,TOTAL 0.7 MG/DL (0.2-1.0); BLOOD UREA NITROGEN 17 MG/DL (7-18); CARBON DIOXIDE LEVEL 26 MEQ/L (21-32); CHLORIDE LEVEL 110 MEQ/L (98-107); CHOLESTEROL LEVEL 221 MG/DL (<200); CREATININE FOR GFR 0.69 MG/DL (0.55-1.30); GLOMERULAR FILTRATION RATE > 60.0 (>45); GLUCOSE, FASTING 102 MG/DL (70-100); HDL CHOLESTEROL 49 MG/DL (>40); LDL CHOLESTEROL 131 MG/DL (<100); NON-HDL-C 172 MG/DL; POTASSIUM SERUM 4.1 MEQ/L (3.5-5.1); SODIUM LEVEL 140 MEQ/L (136-145); THYROID STIMULATING HORMONE 0.331 uIU/ML (0.358-3.740); TOTAL PROTEIN 6.9 GM/DL (6.4-8.2); TRIGLYCERIDES LEVEL 206 MG/DL (<150)
== END ==
LOC: M LAB 09:50
PROVIDERS: ATTEND Internal Medicine
DX: E78.00 Pure hypercholesterolemia, unspecified (principal)

== ENCOUNTER → 2022-03-20 | Outpatient (CLI) | payer OTHER ==
[~2022-03-20] MED LIST changes: +LEVO1TAB39 PO; -LEVO500T4 PO
== END ==
LOC: M PLALAB 11:28 → M PLAIMG 11:28
PROVIDERS: ATTEND Registered Nurse
DX: M54.59 Other low back pain (principal)

== ENCOUNTER → 2022-03-28 | Outpatient (CLI) | payer OTHER ==
[2022-03-29 07:34] LABS: BLOOD UREA NITROGEN 14 MG/DL (7-18); CALCIUM LEVEL 9.2 MG/DL (8.8-10.2); CARBON DIOXIDE LEVEL 27 MEQ/L (21-32); CHLORIDE LEVEL 106 MEQ/L (98-107); CREATININE FOR GFR 0.68 MG/DL (0.55-1.30); GLOMERULAR FILTRATION RATE > 60.0 (>45); GLUCOSE, FASTING 110 MG/DL (70-100); POTASSIUM SERUM 3.7 MEQ/L (3.5-5.1); SODIUM LEVEL 141 MEQ/L (136-145)
== END ==
LOC: M PLALAB 11:15
PROVIDERS: ATTEND Surgery
DX: C50.912 Malignant neoplasm of unspecified site of left female breast (principal); Z91.89 Other specified personal risk factors, not elsewhere classified; L90.5 Scar conditions and fibrosis of skin

== ENCOUNTER → 2022-04-03 | Outpatient (CLI) | payer OTHER | LOC: M PLAIMG 15:34 | PROVIDERS: ATTEND Nurse Practitioner Women's Health | DX: Z53.21 Procedure and treatment not carried out due to patient leaving prior to being seen by health care provider (principal) ==

== ENCOUNTER → 2022-05-18 | Outpatient (CLI) | payer OTHER ==
[~2022-05-18] MED LIST changes: +HYDR200T3
[2022-05-18 12:55] LABS: APPEARANCE, URINE MANUAL CLEAR (CLEAR); COLOR, URINE MANUAL YELLOW (YELLOW)
[2022-05-18 12:57] LABS: BILIRUBIN, URINE MANUAL NEGATIVE (NEGATIVE); BLOOD URINE MANUAL NEGATIVE (NEGATIVE); GLUCOSE, URINE (UA) MANUAL NEGATIVE (NEGATIVE); KETONE, URINE MANUAL NEGATIVE (NEGATIVE); LEUKOCYTE ESTERASE, URINE MAN NEGATIVE (NEGATIVE); NITRITE, URINE MANUAL NEGATIVE (NEGATIVE); PROTEIN, URINE MANUAL NEGATIVE (NEGATIVE); UROBILINOGEN, URINE MANUAL NORMAL (NORMAL)
[2022-05-18 13:00] LABS: BASO # 0.1 10^3/uL (0.0-0.2); BASO % 0.9 % (0.0-1.0); EOS # 0.2 10^3/uL (0.0-0.5); EOS % 4.1 % (0.0-3.0); HEMATOCRIT 39.4 % (36.0-47.0); HEMOGLOBIN 12.8 g/dl (12.0-15.5); LYMPH # 1.3 10^3/uL (1.5-5.0); LYMPH % 24.5 % (24.0-44.0); MEAN CORPUSCULAR HEMOGLOBIN 32.2 pg (27.0-33.0); MEAN CORPUSCULAR HGB CONC 32.5 g/dl (32.0-36.5); MEAN CORPUSCULAR VOLUME 99.2 fl (80.0-96.0); MONO # 0.5 10^3/uL (0.0-0.8); NEUTROPHILS # 3.3 10^3/uL (1.5-8.5); NEUTROPHILS % 61.1 % (36.0-66.0); PLATELET COUNT, AUTOMATED 214 10^3/uL (150-450); RED BLOOD COUNT 3.97 10^6/uL (4.00-5.40); WHITE BLOOD COUNT 5.4 10^3/uL (4.0-10.0)
[2022-05-18 13:32] LABS: HEMOGLOBIN A1c 5.9 %
[2022-05-18 13:41] LABS: ALBUMIN 3.8 GM/DL (3.2-5.2); ALT/SGPT 35 U/L (12-78); BILIRUBIN,TOTAL 0.6 MG/DL (0.2-1.0); BLOOD UREA NITROGEN 15 MG/DL (7-18); CALCIUM LEVEL 9.1 MG/DL (8.8-10.2); CARBON DIOXIDE LEVEL 30 MEQ/L (21-32); CHLORIDE LEVEL 106 MEQ/L (98-107); CHOLESTEROL LEVEL 214 MG/DL (<200); CHOLESTEROL RISK RATIO 3.396 (<5); CREATININE FOR GFR 0.73 MG/DL (0.55-1.30); GLOMERULAR FILTRATION RATE > 60.0 (>45); GLUCOSE, FASTING 98 MG/DL (70-100); HDL CHOLESTEROL 63 MG/DL (>40); LDL CHOLESTEROL 123 MG/DL (<100); MAGNESIUM LEVEL 2.1 MG/DL (1.8-2.4); NON-HDL-C 151 MG/DL; POTASSIUM SERUM 3.9 MEQ/L (3.5-5.1); SODIUM LEVEL 140 MEQ/L (136-145); TOTAL PROTEIN 7.2 GM/DL (6.4-8.2); TRIGLYCERIDES LEVEL 141 MG/DL (<150)
== END ==
LOC: M LAB 12:16
PROVIDERS: ATTEND Internal Medicine
DX: D50.9 Iron deficiency anemia, unspecified (principal); E03.9 Hypothyroidism, unspecified; R73.09 Other abnormal glucose; E78.00 Pure hypercholesterolemia, unspecified; E87.6 Hypokalemia

== ENCOUNTER → 2022-05-18 | Outpatient (CLI) | payer OTHER ==
[2022-05-18 13:38] LABS: BLOOD UREA NITROGEN 15 MG/DL (7-18); CALCIUM LEVEL 9.3 MG/DL (8.8-10.2); CARBON DIOXIDE LEVEL 30 MEQ/L (21-32); CHLORIDE LEVEL 107 MEQ/L (98-107); GLOMERULAR FILTRATION RATE > 60.0 (>45); GLUCOSE, FASTING 100 MG/DL (70-100); SODIUM LEVEL 141 MEQ/L (136-145)
== END ==
LOC: M LAB 12:12
PROVIDERS: ATTEND Nurse Practitioner Women's Health
DX: Z01.812 Encounter for preprocedural laboratory examination (principal)

== ENCOUNTER → 2022-05-24 | Outpatient (CLI) | payer OTHER ==
[~2022-05-24] MED LIST changes: +PROHANCE 279.3MG/ML 15ML VIAL As Ordered ONE; +PROHANCE 279.3MG/ML 5ML VIAL As Ordered ONE
== END ==
LOC: M RAD 14:31
PROVIDERS: ATTEND Nurse Practitioner Women's Health
DX: C50.912 Malignant neoplasm of unspecified site of left female breast (principal); N60.92 Unspecified benign mammary dysplasia of left breast; Z91.89 Other specified personal risk factors, not elsewhere classified; Z98.82 Breast implant status
CPT/HCPCS: A9576; C8908

== ENCOUNTER → 2022-07-15 | Outpatient (CLI) | payer OTHER ==
[~2022-07-15] MED LIST changes: -PROHANCE 279.3MG/ML 15ML VIAL As Ordered ONE; -PROHANCE 279.3MG/ML 5ML VIAL As Ordered ONE
== END ==
LOC: M WHC 11:24
PROVIDERS: ATTEND Internal Medicine Hematology & Oncology
DX: M85.851 Other specified disorders of bone density and structure, right thigh (principal); M85.852 Other specified disorders of bone density and structure, left thigh

== ENCOUNTER → 2022-07-25 | Outpatient (REF) | payer OTHER ==
[2022-07-25 16:30] LABS: BASO # 0.1 10^3/uL (0.0-0.2); BASO % 0.9 % (0.0-1.0); EOS # 0.3 10^3/uL (0.0-0.5); EOS % 5.5 % (0.0-3.0); HEMATOCRIT 35.7 % (36.0-47.0); HEMOGLOBIN 11.8 g/dl (12.0-15.5); LYMPH # 1.4 10^3/uL (1.5-5.0); LYMPH % 26.5 % (24.0-44.0); MEAN CORPUSCULAR HEMOGLOBIN 32.6 pg (27.0-33.0); MEAN CORPUSCULAR HGB CONC 33.1 g/dl (32.0-36.5); MEAN CORPUSCULAR VOLUME 98.6 fl (80.0-96.0); MONO # 0.6 10^3/uL (0.0-0.8); MONO % 10.9 % (2.0-8.0); PLATELET COUNT, AUTOMATED 216 10^3/uL (150-450); RED BLOOD COUNT 3.62 10^6/uL (4.00-5.40); WHITE BLOOD COUNT 5.4 10^3/uL (4.0-10.0)
[2022-07-25 16:35] LABS: ALBUMIN 3.8 G/DL (3.2-5.2); ALKALINE PHOSPHATASE 97 U/L (46-116); ALT/SGPT 24 U/L (7.0-40); AST/SGOT 22 U/L (<34); BILIRUBIN,TOTAL 0.3 MG/DL (0.3-1.2); BLOOD UREA NITROGEN 26 MG/DL (9-23); C REACTIVE PROTEIN QUANTITATIV < 0.40 MG/DL (<1.0); CALCIUM LEVEL 9.2 MG/DL (8.3-10.6); CARBON DIOXIDE LEVEL 27 MMOL/L (20-31); CHLORIDE LEVEL 107 MMOL/L (98-107); CREATININE FOR GFR 0.71 MG/DL (0.55-1.30); GLOMERULAR FILTRATION RATE > 60.0 (>45); GLUCOSE, FASTING 98 MG/DL (74-106); POTASSIUM SERUM 4.1 MMOL/L (3.5-5.1); SODIUM LEVEL 142 MMOL/L (136-145); TOTAL PROTEIN 6.6 G/DL (5.7-8.2)
[2022-07-25 16:58] LABS: ERYTHROCYTE SEDIMENTATION RATE 16 mm/hr (0-30)
== END ==
LOC: M SFHCRHEU 14:37
PROVIDERS: ATTEND Internal Medicine Rheumatology
DX: R76.8 Other specified abnormal immunological findings in serum (principal); M25.50 Pain in unspecified joint; E06.3 Autoimmune thyroiditis; M15.4 Erosive (osteo)arthritis

== ENCOUNTER → 2022-09-25 | Outpatient (CLI) | payer OTHER | LOC: M WHC 10:21 | PROVIDERS: ATTEND Nurse Practitioner Women's Health | DX: C50.912 Malignant neoplasm of unspecified site of left female breast (principal); Z91.89 Other specified personal risk factors, not elsewhere classified; N60.92 Unspecified benign mammary dysplasia of left breast | CPT/HCPCS: 77065; G0279 ==

== ENCOUNTER → 2022-11-20 | Outpatient (CLI) | payer OTHER ==
[2022-11-20 12:24] LABS: BASO # 0.1 10^3/uL (0.0-0.2); BASO % 1.4 % (0.0-1.0); EOS # 0.4 10^3/uL (0.0-0.5); EOS % 6.8 % (0.0-3.0); HEMATOCRIT 38.1 % (36.0-47.0); HEMOGLOBIN 12.9 g/dl (12.0-15.5); LYMPH # 1.4 10^3/uL (1.5-5.0); LYMPH % 22.4 % (24.0-44.0); MEAN CORPUSCULAR HEMOGLOBIN 32.6 pg (27.0-33.0); MEAN CORPUSCULAR HGB CONC 33.9 g/dl (32.0-36.5); MEAN CORPUSCULAR VOLUME 96.2 fl (80.0-96.0); MONO # 0.4 10^3/uL (0.0-0.8); MONO % 6.9 % (2.0-8.0); NEUTROPHILS # 3.9 10^3/uL (1.5-8.5); NEUTROPHILS % 62.2 % (36.0-66.0); PLATELET COUNT, AUTOMATED 225 10^3/uL (150-450); RED BLOOD COUNT 3.96 10^6/uL (4.00-5.40); WHITE BLOOD COUNT 6.2 10^3/uL (4.0-10.0)
[2022-11-20 12:47] LABS: ALBUMIN 3.7 G/DL (3.2-5.2); ALKALINE PHOSPHATASE 105 U/L (46-116); ALT/SGPT 23 U/L (7.0-40); AST/SGOT 21 U/L (<34); BILIRUBIN,TOTAL 0.6 MG/DL (0.3-1.2); BLOOD UREA NITROGEN 14 MG/DL (9-23); CALCIUM LEVEL 9.4 MG/DL (8.3-10.6); CARBON DIOXIDE LEVEL 26 MMOL/L (20-31); CHLORIDE LEVEL 108 MMOL/L (98-107); CHOLESTEROL LEVEL 212 MG/DL (<200); CHOLESTEROL RISK RATIO 4.51 (<5); CREATININE FOR GFR 0.65 MG/DL (0.55-1.30); GLOMERULAR FILTRATION RATE > 60.0 (>39); GLUCOSE, FASTING 95 MG/DL (74-106); LDL CHOLESTEROL 124.2 MG/DL (<100); POTASSIUM SERUM 4.1 MMOL/L (3.5-5.1); SODIUM LEVEL 139 MMOL/L (136-145); TOTAL PROTEIN 7.1 G/DL (5.7-8.2); TRIGLYCERIDES LEVEL 204 MG/DL (<150)
[2022-11-20 12:49] LABS: THYROID STIMULATING HORMONE 2.952 uIU/ML (0.55-4.78)
== END ==
LOC: M LAB 11:52
PROVIDERS: ATTEND Internal Medicine
DX: E78.00 Pure hypercholesterolemia, unspecified (principal)

== ENCOUNTER → 2023-01-30 | Outpatient (CLI) | payer OTHER ==
[~2023-01-30] MED LIST changes: -HYDR200T3; +HYDR200T46; -LIDO1CRE42; +LIDO30CR18
[2023-01-30 08:10] LABS: BASO # 0.1 10^3/uL (0.0-0.2); BASO % 1.1 % (0.0-1.0); EOS # 0.4 10^3/uL (0.0-0.5); EOS % 5.9 % (0.0-3.0); HEMATOCRIT 35.5 % (36.0-47.0); LYMPH # 1.2 10^3/uL (1.5-5.0); LYMPH % 18.8 % (24.0-44.0); MEAN CORPUSCULAR HEMOGLOBIN 32.7 pg (27.0-33.0); MEAN CORPUSCULAR HGB CONC 33.8 g/dl (32.0-36.5); MEAN CORPUSCULAR VOLUME 96.7 fl (80.0-96.0); MONO # 0.7 10^3/uL (0.0-0.8); MONO % 10.6 % (2.0-8.0); NEUTROPHILS # 4.2 10^3/uL (1.5-8.5); NEUTROPHILS % 63.3 % (36.0-66.0); PLATELET COUNT, AUTOMATED 186 10^3/uL (150-450); RED BLOOD COUNT 3.67 10^6/uL (4.00-5.40); WHITE BLOOD COUNT 6.6 10^3/uL (4.0-10.0)
[2023-01-30 08:30] LABS: ERYTHROCYTE SEDIMENTATION RATE 14 mm/hr (0-30)
[2023-01-30 08:44] LABS: C REACTIVE PROTEIN QUANTITATIV < 0.40 MG/DL (<1.0)
[2023-01-30 08:45] LABS: ALBUMIN 3.8 G/DL (3.2-5.2); ALKALINE PHOSPHATASE 96 U/L (46-116); ALT/SGPT 26 U/L (7.0-40); AST/SGOT < 8 U/L (<34); BILIRUBIN,TOTAL 0.5 MG/DL (0.3-1.2); BLOOD UREA NITROGEN 19 MG/DL (9-23); CALCIUM LEVEL 8.9 MG/DL (8.3-10.6); CARBON DIOXIDE LEVEL 28 MMOL/L (20-31); CHLORIDE LEVEL 111 MMOL/L (98-107); CREATININE FOR GFR 0.76 MG/DL (0.55-1.30); GLOMERULAR FILTRATION RATE > 60.0 (>39); GLUCOSE, FASTING 97 MG/DL (74-106); POTASSIUM SERUM 3.9 MMOL/L (3.5-5.1); SODIUM LEVEL 145 MMOL/L (136-145); TOTAL PROTEIN 6.6 G/DL (5.7-8.2)
== END ==
LOC: M LAB 07:47
PROVIDERS: ATTEND Internal Medicine Rheumatology
DX: Z01.812 Encounter for preprocedural laboratory examination (principal); M25.50 Pain in unspecified joint; R76.8 Other specified abnormal immunological findings in serum; E06.3 Autoimmune thyroiditis; M15.4 Erosive (osteo)arthritis; C50.912 Malignant neoplasm of unspecified site of left female breast; N60.92 Unspecified benign mammary dysplasia of left breast; Z91.89 Other specified personal risk factors, not elsewhere classified

== ENCOUNTER → 2023-05-26 | Outpatient (CLI) | payer OTHER ==
[~2023-05-26] MED LIST changes: +OMEP-173 PO; +PROHANCE 279.3MG/ML 15ML VIAL As Ordered ONE; +PROHANCE 279.3MG/ML 5ML VIAL As Ordered ONE
== END ==
LOC: M RAD 10:39
PROVIDERS: ATTEND Nurse Practitioner Women's Health
DX: C50.912 Malignant neoplasm of unspecified site of left female breast (principal); Z91.89 Other specified personal risk factors, not elsewhere classified; N60.92 Unspecified benign mammary dysplasia of left breast
CPT/HCPCS: A9576; C8908

== ENCOUNTER → 2023-06-11 | Outpatient (CLI) | payer OTHER ==
[~2023-06-11] MED LIST changes: -PROHANCE 279.3MG/ML 15ML VIAL As Ordered ONE; -PROHANCE 279.3MG/ML 5ML VIAL As Ordered ONE
== END ==
LOC: M WHC 10:10
PROVIDERS: ATTEND Nurse Practitioner Women's Health
DX: R92.8 Other abnormal and inconclusive findings on diagnostic imaging of breast (principal)

== ENCOUNTER → 2023-07-10 | Outpatient (CLI) | payer OTHER ==
[~2023-07-10] MED LIST changes: +ALEN70TA82 PO
== END ==
LOC: M WHCPRO 08:51
PROVIDERS: ATTEND Nurse Practitioner Women's Health
DX: R92.8 Other abnormal and inconclusive findings on diagnostic imaging of breast (principal); N63.24 Unspecified lump in the left breast, lower inner quadrant; Z98.82 Breast implant status

== ENCOUNTER → 2023-07-31 | Outpatient (CLI) | payer OTHER ==
[2023-07-31 19:41] LABS: C REACTIVE PROTEIN QUANTITATIV < 0.40 MG/DL (<1.0)
[2023-07-31 19:42] LABS: ALKALINE PHOSPHATASE 100 U/L (46-116); ALT/SGPT 24 U/L (7.0-40); AST/SGOT 25 U/L (<34); BILIRUBIN,TOTAL 0.4 MG/DL (0.3-1.2); BLOOD UREA NITROGEN 22 MG/DL (9-23); CALCIUM LEVEL 9.2 MG/DL (8.3-10.6); CARBON DIOXIDE LEVEL 29 MMOL/L (20-31); CHLORIDE LEVEL 105 MMOL/L (98-107); CREATININE FOR GFR 0.82 MG/DL (0.55-1.30); GLOMERULAR FILTRATION RATE > 60.0 (>39); GLUCOSE, FASTING 102 MG/DL (74-106); POTASSIUM SERUM 4.3 MMOL/L (3.5-5.1); SODIUM LEVEL 139 MMOL/L (136-145)
[2023-07-31 19:53] LABS: BASO # 0.1 10^3/uL (0.0-0.2); BASO % 1.2 % (0.0-1.0); EOS # 0.3 10^3/uL (0.0-0.5); EOS % 4.2 % (0.0-3.0); HEMATOCRIT 39.5 % (36.0-47.0); HEMOGLOBIN 12.9 g/dl (12.0-15.5); LYMPH % 28.4 % (24.0-44.0); MEAN CORPUSCULAR HEMOGLOBIN 31.2 pg (27.0-33.0); MEAN CORPUSCULAR HGB CONC 32.7 g/dl (32.0-36.5); MEAN CORPUSCULAR VOLUME 95.6 fl (80.0-96.0); MONO # 0.7 10^3/uL (0.0-0.8); MONO % 9.7 % (2.0-8.0); NEUTROPHILS # 3.9 10^3/uL (1.5-8.5); NEUTROPHILS % 56.2 % (36.0-66.0); PLATELET COUNT, AUTOMATED 236 10^3/uL (150-450); RED BLOOD COUNT 4.13 10^6/uL (4.00-5.40); WHITE BLOOD COUNT 6.9 10^3/uL (4.0-10.0)
[2023-07-31 20:10] LABS: ERYTHROCYTE SEDIMENTATION RATE 32 mm/hr (0-30)
== END ==
LOC: M WUC 15:38
PROVIDERS: ATTEND Internal Medicine Rheumatology
DX: R76.8 Other specified abnormal immunological findings in serum (principal); M25.50 Pain in unspecified joint; E06.3 Autoimmune thyroiditis; M15.4 Erosive (osteo)arthritis

== ENCOUNTER → 2023-12-26 | Outpatient (CLI) | payer OTHER ==
[~2023-12-26] MED LIST changes: -HYDR200T46; +HYDR200T46 PO; +VITA-325 PO
[2023-12-26 13:19] LABS: APPEARANCE, URINE CLEAR (CLEAR); BACTERIA, URINE AUTO NEGATIVE (NEGATIVE); BILIRUBIN, URINE AUTO NEGATIVE (NEGATIVE); BLOOD, URINE BLOOD NEGATIVE (NEGATIVE); COLOR, URINE YELLOW (YELLOW); GLUCOSE, URINE (UA) AUTO NEGATIVE (NEGATIVE); KETONE, URINE AUTO NEGATIVE (NEGATIVE); LEUKOCYTE ESTERASE, URINE AUTO NEGATIVE (NEGATIVE); MUCUS, URINE SMALL (NEGATIVE); NITRITE, URINE AUTO NEGATIVE (NEGATIVE); PROTEIN, URINE AUTO NEGATIVE (NEGATIVE); RBC, URINE AUTO 2 /HPF (0-3); SPECIFIC GRAVITY URINE AUTO 1.026 (1.002-1.035); SQUAMOUS EPITHELIAL CELL UR AU 0 /HPF (0-6); UROBILINOGEN, URINE AUTO 0.2 mg/dL (0.0-2.0); WBC, URINE AUTO 1 /HPF (0-3)
[2023-12-26 13:24] LABS: BASO # 0.1 10^3/uL (0.0-0.2); BASO % 1.3 % (0.0-1.0); EOS # 0.3 10^3/uL (0.0-0.5); EOS % 5.9 % (0.0-3.0); HEMATOCRIT 36.3 % (36.0-47.0); HEMOGLOBIN 12.1 g/dl (12.0-15.5); LYMPH # 1.1 10^3/uL (1.5-5.0); MEAN CORPUSCULAR HEMOGLOBIN 32.3 pg (27.0-33.0); MEAN CORPUSCULAR HGB CONC 33.3 g/dl (32.0-36.5); MEAN CORPUSCULAR VOLUME 96.8 fl (80.0-96.0); MONO # 0.6 10^3/uL (0.0-0.8); NEUTROPHILS # 3.5 10^3/uL (1.5-8.5); NEUTROPHILS % 62.4 % (36.0-66.0); PLATELET COUNT, AUTOMATED 229 10^3/uL (150-450); RED BLOOD COUNT 3.75 10^6/uL (4.00-5.40); WHITE BLOOD COUNT 5.6 10^3/uL (4.0-10.0)
[2023-12-26 13:31] LABS: ERYTHROCYTE SEDIMENTATION RATE 16 mm/hr (0-30)
[2023-12-26 13:43] LABS: TOTAL PROTEIN,RANDOM URINE 36.1 MG/DL (0.0-14.0)
[2023-12-26 13:47] LABS: ALBUMIN 3.6 G/DL (3.2-5.2); ALKALINE PHOSPHATASE 102 U/L (46-116); ALT/SGPT 41 U/L (7.0-40); AST/SGOT 29 U/L (<34); BILIRUBIN,TOTAL 0.6 MG/DL (0.3-1.2); BLOOD UREA NITROGEN 19 MG/DL (9-23); CARBON DIOXIDE LEVEL 28 MMOL/L (20-31); CHLORIDE LEVEL 109 MMOL/L (98-107); CREATININE FOR GFR 0.73 MG/DL (0.55-1.30); GLOMERULAR FILTRATION RATE > 60.0 (>39); GLUCOSE, FASTING 94 MG/DL (74-106); SODIUM LEVEL 144 MMOL/L (136-145); TOTAL PROTEIN 6.5 G/DL (5.7-8.2)
[2023-12-26 13:48] LABS: COMPLEMENT C3 135.4 MG/DL (90.0-170.0); COMPLEMENT C4 26.2 MG/DL (12-36); CREATININE,RANDOM URINE 214.2 MG/DL
[2023-12-29 15:11] LABS: ANTI DS-DNA AB Negative (Negative); COMPLEMENT TOTAL (CH50) > 60 U/mL (>41)
== END ==
LOC: M WUC 11:03
PROVIDERS: ATTEND Internal Medicine Rheumatology
DX: R76.8 Other specified abnormal immunological findings in serum (principal); M25.50 Pain in unspecified joint; E06.3 Autoimmune thyroiditis; M15.4 Erosive (osteo)arthritis

== ENCOUNTER → 2024-07-16 | Outpatient (CLI) | payer OTHER ==
[~2024-07-16] MED LIST changes: -AZEL0.055 NARES; +AZEL1SPR4 NARES
== END ==
LOC: M WHC 11:42
PROVIDERS: ATTEND Internal Medicine Medical Oncology
DX: C50.919 Malignant neoplasm of unspecified site of unspecified female breast (principal); M85.89 Other specified disorders of bone density and structure, multiple sites

== ENCOUNTER → 2024-10-04 | Outpatient (CLI) | payer MEDICARE | LOC: M WHC 11:35 | PROVIDERS: ATTEND Internal Medicine Medical Oncology | DX: Z12.31 Encounter for screening mammogram for malignant neoplasm of breast (principal); N64.9 Disorder of breast, unspecified | CPT/HCPCS: 77065; G0279 ==

== ENCOUNTER → 2025-07-05 | Outpatient (CLI) | payer MEDICARE ==
[~2025-07-05] MED LIST changes: +ACYC200C10 PO; -ACYC200C8 PO; +PHEN15CA6; +PROHANCE 279.3MG/ML 15ML VIAL ONE; +PROHANCE 279.3MG/ML 5ML VIAL ONE
== END ==
LOC: M PLAIMG 12:47
PROVIDERS: ATTEND Surgery
DX: N63.23 Unspecified lump in the left breast, lower outer quadrant (principal); N63.24 Unspecified lump in the left breast, lower inner quadrant; Z85.3 Personal history of malignant neoplasm of breast
CPT/HCPCS: A9579; C8908

== ENCOUNTER → 2025-07-13 | Outpatient (CLI) | payer MEDICARE ==
[~2025-07-13] MED LIST changes: -PROHANCE 279.3MG/ML 15ML VIAL ONE; -PROHANCE 279.3MG/ML 5ML VIAL ONE
[2025-07-18 15:33] LABS: D002-IGE D FARINAE MITE < 0.10 kU/L (<0.10); E001-IGE CAT EPITHELIUM/DANDER < 0.10 kU/L (<0.10); E005-IGE DOG DANDER/HAIR/EPITH < 0.10 kU/L (<0.10); G002-IGE BERMUDA GRASS < 0.10 kU/L (<0.10); G003-IGE ORCHARD GRASS 0.13 kU/L (<0.10); G006-IGE TIMOTHY GRASS 0.14 kU/L (<0.10); M001-IGE PENICILLIUM CHRYSOGEN < 0.10 kU/L (<0.10); M003-IGE D pteronyssinus < 0.10 kU/L (<0.10); T001-IGE MAPLE/BOX ELDER 0.24 kU/L (<0.10); T003-IGE COMMON SILVER BIRCH 0.12 kU/L (<0.10); T008-IGE ELM, AMERICAN WHITE 0.15 kU/L (<0.10); T014-IGE COTTONWOOD 0.27 kU/L (<0.10); T016-IGE PINE, WHITE 0.11 kU/L (<0.10); W003-IGE RAGWEED, GIANT < 0.10 kU/L (<0.10); W006-IGE MUGWORT < 0.10 kU/L (<0.10); W009-IGE PLANTAIN,ENGLISH < 0.10 kU/L (<0.10); W010-IGE LAMB'S QUARTER < 0.10 kU/L (<0.10); W012-IGE GOLDENROD < 0.10 kU/L (<0.10); W013-IgE COCKLEBUR IGE 0.11 kU/L (<0.10)
[2025-07-19 17:32] LABS: M007-IGE BOTRYTIS cinerea < 0.10 kU/L (<0.10)
== END ==
LOC: M PLALAB 11:51
PROVIDERS: ATTEND Allergy & Immunology Allergy
DX: J31.0 Chronic rhinitis (principal); J45.30 Mild persistent asthma, uncomplicated